=== PATIENT | male | born 1960 | race Caucasian/White ===

== ENCOUNTER 2018-01-26 15:30 | Inpatient (IN) | payer OTHER ==
[~2018-01-26] VITALS: Ht 182.9 cm; Wt 188.9 kg
--- NOTE | 2018-01-26 17:06 | HHI.HP ---
HPI Service [facility] Primary Care Physician No Primary Care Physician Admission Diagnosis Diagnoses: Chief Complaint: Heart blockage Travel History International Travel<30 Days: No Contact w/Intl Traveler <30 Da: No History of Present Illness 57-year-old white male being [place] [facility] [facility] for further evaluation of coronary artery bypass graft. History is obtained from patient, outside medical records, and nursing handoff. Patient was in his usual state of health up until recently. Yesterday he went to [facility] for an outpatient catheterization but they were not able to successfully stent his LAD due to (tortuous anatomy and possible dissection per RN handoff) and was thus admitted to the intensive care unit. Cardiology deemed surgical input was necessary. Cardiothoracic surgery here accepted the patient for further evaluation, thus the patient was transferred to [facility]. Patient reports in the days leading up to his outpatient catheterization, he denies having any active chest pain, nausea, vomiting. He reports having intermittent dyspnea that would happen either at rest or upon exertion says that his leg edema has been. Worse than baseline since he says he has been off of his water pills for the past few days due to his admission. Prior to this the patient had a successful angioplasty on 01/09 to his RCA but no stents were placed on either. Patient says he was evaluated by cardiothoracic surgery team in [place] around this timeframe was was told that CABG would be too risky. Patient reports otherwise he is very compliant with his Lipitor, aspirin, Brilinta, and Lasix. Says that his A1c has been in the low 6 range. I discussed case with Dr. Hensley cardiology at [facility], he confirms that the patient has no stent in his heart at this time, only unsuccessful attempts were made due to tortuous anatomy. Last dose of Brilinta was about 1.5 days ago. Review of Systems Except as stated in HPI: all other systems reviewed are Neg Past Family Social History Past Medical History Coronary artery disease Multiple angioplasties with no successful stenting Hypertension Diabetes Allergies: Coded Allergies: Penicillins (Verified Adverse Reaction, Intermediate, fever, 01/26/18) cephalexin (Verified Adverse Reaction, Mild, hives, 01/26/18) sulfamethoxazole (Verified Adverse Reaction, Mild, hives, 01/26/18) trimethoprim (Verified Adverse Reaction, Mild, hives, 01/26/18) Sulfa (Sulfonamide Antibiotics) (Verified Adverse Reaction, Unknown, ) Family History Coronary artery disease in father Social History Stop smoking 18 years ago, stopped drinking 18 years ago, denies illicit drug use, 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 EYES: No scleral icterus. No injection or drainage. ENT: No nasal bleeding or discharge. Mucous membranes pink and moist. CARDIOVASCULAR: Muffled heart sounds, no obvious murmurs RESPIRATORY: No accessory muscle use. Clear to auscultation. Breath sounds equal bilaterally. GASTROINTESTINAL: Abdomen soft, non-tender, nondistended. Extremities: No clubbing, cyanosis, or edema. No obvious deformities. MUSCULOSKELETAL: adequate muscle bulk and tone for age and habitus NEUROLOGICAL: Awake and alert. No obvious cranial nerve deficits. No facial droop nor slurred speech noted. PSYCHIATRIC: Appropriate mood and affect; insight and judgment normal. Caprini VTE Risk Assessment Caprini VTE Risk Assessment: Mod/High Risk (score >= 2) Caprini Risk Assessment Model Point Value = 1 Point Value = 2 Point Value = 3 Point Value = 5 Age 41-60 Minor surgery BMI > 25 kg/m2 Swollen legs Varicose veins or History of unexplained or recurrent spontaneous Oral contraceptives or hormone replacement Sepsis (< 1 month) Serious lung disease, including pneumonia (< 1 month) Abnormal pulmonary function Acute myocardial infarction Congestive heart failure (< 1 month) History of inflammatory bowel disease Medical patient at bed rest Age 61-74 Arthroscopic surgery Major open surgery (> 45 min) Laparoscopic surgery (> 45 min) Malignancy Confined to bed (> 72 hours) Immobilizing plaster cast Central venous access Age >= 75 History of VTE Family history of VTE Factor V Leiden Prothrombin [id number] Lupus anticoagulant Anticardiolipin antibodies Elevated serum homocysteine Heparin-induced thrombocytopenia Other congenital or acquired thrombophilia Stroke (< 1 month) Elective arthroplasty Hip, pelvis, or leg fracture Acute spinal cord injury (< 1 month) Prophylaxis Regimen Total Risk Factor Score Risk Level Prophylaxis Regimen 0-1 Low Early ambulation 2 Moderate Order ONE of the following: *Sequential Compression Device (SCD) *Heparin 5000 units SQ BID 3-4 Higher Order ONE of the following medications: *Heparin 5000 units SQ TID *Enoxaparin/Lovenox 40 mg SQ daily (WT < 150 kg, CrCl > 30 mL/min) *Enoxaparin/Lovenox 30 mg SQ daily (WT < 150 kg, CrCl > 10-29 mL/min) *Enoxaparin/Lovenox 30 mg SQ BID (WT < 150 kg, CrCl > 30 mL/min) AND/OR *Sequential Compression Device (SCD) 5 or more Highest Order ONE of the following medications: *Heparin 5000 units SQ TID (Preferred with Epidurals) *Enoxaparin/Lovenox 40 mg SQ daily (WT < 150 kg, CrCl > 30 mL/min) *Enoxaparin/Lovenox 30 mg SQ daily (WT < 150 kg, CrCl > 10-29 mL/min) *Enoxaparin/Lovenox 30 mg SQ BID (WT < 150 kg, CrCl > 30 mL/min) AND *Sequential Compression Device (SCD) Assessment and Plan Assessment and Plan Multivessel coronary artery disease -Status post unsuccessful PCI; cardiothoracic surgery has been consulted -Admit to CPICU -Telemetry, frequent vital signs -Bedrest -Continue aspirin and Lipitor - continue home Coreg - holding Brilinta, w/ no stent I don't see the need for this at this time Diabetes -We will hold home medications for now and start sliding scale mild CHF exacerbation due to noncompliance - unclear systolic/diastolic nature - will restart home Lasix 40 mg daily and see if this controls the edema, otherwise can upgrade to IV diuresis - continue home losartan and coreg - will request outside echo report if available - BMP in AM w/ Intake and output Anxiety -Resume home buspirone and topiramate (restless leg) -home fluoxetine SCDs heparin if cleared by [facility] Physician Certification 2 Midnight Certification Type: Admission for Inpatient Services Order for Inpatient Services The services are ordered in accordance with Medicare regulations or non- Medicare payer requirements, as applicable. In the case of services not specified as inpatient-only, they are appropriately provided as inpatient services in accordance with the 2-midnight benchmark. Estimated LOS (days): 2 2 days is the estimated time the patient will need to remain in the hospital, assuming treatment plan goals are met and no additional complications. Post-Hospital Plan: Not yet determined Ag Topete MD January 26, 2018 17:06
[2018-01-26] MEDS ORDERED: ASPI81TA23 PO (17:55)
[2018-01-26] MEDS ORDERED: trulicity PO (17:55)
[2018-01-26] MEDS ORDERED: FISHCAP4 PO (17:55)
[2018-01-26] MEDS ORDERED: TEST1INJ3 IM (17:55)
[2018-01-26] MEDS ORDERED: FLUO20CA12 PO (17:55)
[2018-01-26] MEDS ORDERED: AMLO5TAB2 PO (17:55)
[2018-01-26] MEDS ORDERED: ALBUAER3 INH (17:55)
[2018-01-26] MEDS ORDERED: ATOR40TA16 PO (17:55)
[2018-01-26] MEDS ORDERED: BUSP15TA PO (17:55)
[2018-01-26] MEDS ORDERED: TOPI50TA7 PO (17:55)
[2018-01-26] MEDS ORDERED: BRIL90TA PO (17:55)
[2018-01-26] MEDS ORDERED: HYDR-3799 PO (17:55)
[2018-01-26] MEDS ORDERED: CARV25TA PO (17:55)
[2018-01-26] MEDS ORDERED: METF1000 PO (17:55)
[2018-01-26] MEDS ORDERED: LOSA100T PO (17:55)
[2018-01-26] MEDS ORDERED: NAPR500T2 PO (17:55)
[2018-01-26] MEDS ORDERED: BUSP1TAB PO (17:55)
[2018-01-26] MEDS ORDERED: INSU1SOL SQ (17:55)
[2018-01-26] MEDS ORDERED: FURO40TA PO (17:55)
[2018-01-26] MEDS ORDERED: DEXTROSE 50% IN WATER 50 ML VIAL(D50) IV PUSH PRN (18:45)
[2018-01-26] MEDS ORDERED: GLUCAGON 1 MG/ML VIAL OTHER PRN (18:45)
[2018-01-26 19:00] VITALS: PULSE 112
[2018-01-26] MEDS ORDERED: PILL SPLITTER OTHER PRN (19:15)
[2018-01-26 20:00] VITALS: BP 129/69; PULSE 108; PULSE 89; RESP 16; TEMP 98.6; O2SAT 95
[2018-01-26 21:00] VITALS: PULSE 90
[2018-01-26] MEDS ORDERED: NON-FORMULARY DRUG (Fish Oil-Cholecalciferol (Fish Oil + D3) 1 CAP) PO SCH (21:00)
[2018-01-26] MEDS: hydrALAZINE HCL 50 MG TAB PO SCH (21:12)
[2018-01-26] MEDS: CARVEDILOL 12.5 MG TAB PO SCH (21:13)
[2018-01-26] MEDS: busPIRone HCL 5 MG TAB PO SCH (21:13)
[2018-01-26] MEDS: ATORVASTATIN 40 MG TAB PO SCH (21:13)
[2018-01-26] MEDS: TOPIRAMATE 25 MG TAB PO SCH (21:14)
[2018-01-26] MEDS: INSULIN NovoLIN REGULAR SUPPLEMENTAL SCALE SQ SCH (21:52)
[2018-01-26 22:00] VITALS: PULSE 88
[2018-01-26 23:00] VITALS: PULSE 84
[2018-01-27] VITALS (27 sets, daily range): BP systolic 144–174; BP diastolic 63–90; PULSE 74–98; RESP 16–20; TEMP 98–98.6; O2SAT 93–97
[2018-01-27] MEDS ORDERED: LOSARTAN 50 MG TAB PO SCH (09:00)
[2018-01-27] MEDS ORDERED: amLODIPine BESYLATE 5 MG TAB PO SCH (09:00)
[2018-01-27] MEDS: INSULIN NovoLIN REGULAR SUPPLEMENTAL SCALE SQ SCH ×4 (09:01→21:00)
--- NOTE | 2018-01-27 09:10 | HHI.PR ---
Subjective Remarks Nursing denies any deterioration since last night. Patient denies having any chest pain or shortness of breath. Lower extremity edema is unchanged since yesterday per patient. Objective Vital Signs Date Time Temp Pulse Resp B/P (MAP) Pulse Ox O2 Delivery O2 Flow Rate FiO2 01/27/18 07:30 98.4 96 16 174/90 (118) 94 01/27/18 07:00 96 01/27/18 06:00 88 01/27/18 05:00 86 01/27/18 04:00 98 01/27/18 03:30 98.6 89 16 145/67 (93) 97 01/27/18 03:00 90 01/27/18 02:00 85 01/27/18 01:00 84 01/27/18 00:00 92 01/27/18 00:00 98.5 91 16 144/63 (90) 97 01/26/18 23:00 84 01/26/18 22:00 88 01/26/18 21:00 90 01/26/18 20:00 98.6 89 16 129/69 (89) 95 01/26/18 20:00 108 01/26/18 19:00 112 I/O 01/26/18 01/26/18 01/26/18 01/27/18 01/27/18 01/27/18 07:00 15:00 23:00 07:00 15:00 23:00 Intake Total 240 ml Output Total 800 ml Balance -560 ml Intake Oral 240 ml Output Urine Total 800 ml Stool Total 0 ml Objective Remarks Heart sounds are muffled, otherwise unremarkable, clear lung sounds bilaterally , unlabored breathing Unchanged moderate lower extremity edema bilaterally's as yesterday A/P Assessment and Plan Multivessel coronary artery disease -Status post unsuccessful PCI; cardiothoracic surgery consultation pending -Telemetry, frequent vital signs -Bedrest -Continue aspirin and Lipitor - continue home Coreg - holding Brilinta, w/ no stent I don't see the need for this at this time Diabetes -hold home medications for now and LDSS; discussed with nurse, was not administered morning dose since he was n.p.o., sugars have been greater than 180 since admission. Will reattempt low-dose sliding scale from this morning and if sugars are still greater than 150 will consider upgrading to medium dose sliding scale. mild CHF exacerbation due to noncompliance - unclear systolic/diastolic nature, - will request outside echo report if available - continue home Lasix 40 mg daily and see if this controls the edema, otherwise can upgrade to IV diuresis - continue home losartan and coreg - BMP pending - neg fluid balance so far, continue monitoring intake/output HTN -Continue home losartan, Coreg, Norvasc, hydralazine Anxiety - home buspirone and topiramate (restless leg) -home fluoxetine SCDs heparin Ag Topete MD January 27, 2018 09:10
[2018-01-27] MEDS ORDERED: INSULIN HUMAN REGULAR 1,000 UNITS/10 ML VIAL SQ ONE (09:45)
[2018-01-27] MEDS: HEPARIN SODIUM - SQ 10,000 UNITS/ML VIAL SQ SCH ×3 (10:02→16:38)
[2018-01-27] MEDS: CARVEDILOL 12.5 MG TAB PO SCH ×2 (10:02→23:53)
[2018-01-27] MEDS: ASPIRIN EC 81 MG TABEC PO SCH (10:03)
[2018-01-27] MEDS: FUROSEMIDE 40 MG TAB PO SCH (10:03)
[2018-01-27] MEDS: hydrALAZINE HCL 50 MG TAB PO SCH ×2 (10:03→23:52)
[2018-01-27] MEDS: TOPIRAMATE 25 MG TAB PO SCH ×2 (10:04→23:54)
[2018-01-27] MEDS: busPIRone HCL 5 MG TAB PO SCH ×2 (10:04→23:53)
[2018-01-27] MEDS: FLUoxetine HCL 20 MG CAP PO SCH (10:11)
[2018-01-27] MEDS ORDERED: VANCOMYCIN INJ 1,750 MG in SODIUM CHLORID 0.9% 500 ML INJ 500 ML IV SCH (10:15)
[2018-01-27] MEDS ORDERED: SODIUM CHLORIDE 0.9% FLUSH 10 ML FLUSH IV FLUSH PRN (10:15)
[2018-01-27] MEDS ORDERED: DEXTROSE 50% IN WATER 50 ML VIAL(D50) IV PUSH PRN (10:15)
[2018-01-27] MEDS ORDERED: PAPAVERINE INJ 60 MG, NITROGLYCERIN INJ 100 MCG, VERAPAMIL INJ 100 MG in SODIUM CHLORID... IRRIGATION SCH (10:15)
[2018-01-27] MEDS ORDERED: VANCOMYCIN INJ 1,000 MG in SODIUM CHLORIDE 0.9% IRR BTL 1,000 ML IRRIGATION SCH (10:15)
[2018-01-27] MEDS ORDERED: CHLORHEXIDINE GLUCONATE 4% SOLN 120 ML BTL TOPICAL SCH (10:15)
[2018-01-27] MEDS ORDERED: METOPROLOL TARTRATE 25 MG TAB PO SCH (10:15)
[2018-01-27] MEDS ORDERED: INSULIN REGULAR (IV INFUSION) 100 UNITS in SODIUM CHLORIDE 0.9% INJ 99 ML IV PRN (10:15)
--- NOTE | 2018-01-27 11:11 | RADRPT ---
EXAM DATE/TIME: 01/27/2018 11:21 [facility] COMPARISON: No previous studies available for comparison. INDICATIONS : Evaluate for pneumonia, pneumothorax or communicable disease. Preop chest for CABG MEDICAL HISTORY : Cardiovascular disease. SURGICAL HISTORY : None. ENCOUNTER: Initial ACUITY: 1 day PAIN SCORE: 0/10 LOCATION: Bilateral chest FINDINGS: A single view of the chest demonstrates the lungs to be symmetrically aerated without evidence of mas s, infiltrate or effusion. Mild compensated cardiomegaly. Osseous structures are intact. CONCLUSION: No acute disease. Steven Chen MD FACR on January 27, 2018 at 11:08 Board Certified Radiologist. This report was verified electronically.
--- NOTE | 2018-01-27 11:55 | MB ---
cc: Lena Bravo Jacqueline R ARNP DATE: 01/27/2018 HISTORY OF PRESENT ILLNESS: A 57-year-old male , date of 1960, apparently has a history of coronary artery disease and recently started having chest pain again back in December where he had a heart catheterization which showed a high grade stenosis of the LAD and the right coronary artery in the proximal region. He was sent for evaluation for coronary artery bypass grafting at [facility] in [place] and was evaluated by Dr. Taylor and recommended to undergo stepwise angioplasty of the LAD and the RCA secondary to the patient's significant comorbidities which included morbid obesity with a BMI of 56 and a weight of 411 pounds, diabetes mellitus. They attempted balloon angioplasty of the right coronary artery and failure of her stent delivery on 01/09/2018. He was then brought back on 01/26/2018 for staged PCI to the LAD, which was failed intervention and they ended up using a Perclose device to the right groin. He was then transferred to our facility to be evaluated by Dr. Gay Rico for possible coronary artery bypass grafting at this time. PAST MEDICAL HISTORY: Includes coronary artery disease; no prior history of AR. Renal stones, sleep apnea. He cannot tolerate CPAP mask, carotid disease, morbid obesity with a BMI of 56, hypertension, history of depression. PAST SURGICAL HISTORY: Surgeries include right carotid endarterectomy in 2008. He has also had a left carotid endarterectomy; he is not sure of the date. He had an injury as a child at age 12 in a snow sled where he had a railroad tie and had what sounds like a hematoma for which the patient underwent a craniotomy at that time. He has also had right rotator cuff surgery, bilateral knee surgery replacement, appendectomy, tonsillectomy. ALLERGIES: PENICILLIN. KEFLEX SULFA. FAMILY HISTORY: Mother from sudden . Father with complications of pneumonia. SOCIAL HISTORY: The patient is and has stepchildren, walks without a cane but becomes easily short of breath. No alcohol. Retired from the [employer] in [place] [facility]. Smoked for 20 years, approximately 4 packs, quit in 1999. REVIEW OF SYSTEMS: GENERAL: No night sweats, fever, heat and cold intolerance. SKIN: No psoriasis, itching or hives. HEENT: No blurred vision, hearing loss. RESPIRATORY: Positive for shortness of breath. No cough. CARDIOVASCULAR: He has had recent chest tightness. No paroxysmal nocturnal dyspnea. Occasional lower extremity edema. GASTROINTESTINAL: No diarrhea or vomiting. GENITOURINARY: No burning, frequency, urgency. NEUROLOGIC: No history of TIA, CVA or seizure disorder. ENDOCRINOLOGY: Positive for diabetes mellitus. PHYSICAL EXAMINATION: VITAL SIGNS: Stable. HEENT: Head is normocephalic. He has a full alva. Pupils equal and reactive. Oral mucosa pink, moist. He has no teeth on the top. Apparently, he lost his upper dentures. NECK: Supple. He has got well healed carotid endarterectomy scars. HEART: Sounds S1, S2. Regular rate and rhythm. No audible rubs, murmurs, gallops. LUNGS: Diminished in the bases, otherwise clear to auscultation. No wheezes, rales or rhonchi. UPPER EXTREMITIES: He has got a scar in his right shoulder. ABDOMEN: Obese. He has a large pannus. He has got some ecchymosis to the right groin from his catheterization site. EXTREMITIES: Reveal trace edema with Doppler pulses only. He has got some chronic fungal involvement of his nails of his feet. IMPRESSION: This is a 57-year-old male who has had an attempt for high risk PCI to the LAD and the RCA which have both failed. ASSESSMENT AND PLAN: He was seen by cardiothoracic surgery at [facility] with Dr. Taylor and who at that point recommended staged percutaneous coronary intervention. The patient was then transferred to our facility to reevaluate for a second opinion for possible surgery. The cardiac films will be evaluated by Dr. Gay iRco. Full testing is pending including 2-D echo. The decision on surgery as per Dr. Rico. In the meantime, the STS data will be calculated and placed in the electronic record. TRISTEN Campbell MD JRT/MONO , 11:22 AM , 11:54 AM
--- NOTE | 2018-01-27 12:23 | RADRPT ---
EXAM DATE/TIME: 01/27/2018 10:53 [facility] COMPARISON: No previous studies available for comparison. INDICATIONS : Preop cardiac surgery. MEDICAL HISTORY : Hypertension. Coronary artery disease. Diabetes. SURGICAL HISTORY : Angioplasty. Cardiac cath. ENCOUNTER: Initial ACUITY: 1 day PAIN SCORE: 0/10 LOCATION: Bilateral neck PEAK SYSTOLIC VELOCITIES (cm/sec): ICA/CCA RATIO: Right: 0.8 Left: 0.9 ICA: Right: 62 Left: 114 CCA: Right: 74 Left: 127 ECA: Right: 78 Left: 77 VERTEBRAL: Right: 39 antegrade Left: 52 antegrade Elevated flow velocities and ICA/CCA ratios have been found to correlate with increased degrees of vessel stenosis, calculated as percentage of diameter relative to a normal segment of distal ICA/CCA FINDINGS: RIGHT CAROTID: There is mild atherosclerotic plaquing at the carotid bifurcation. No significant stenosis is visuali zed. The waveforms are within normal limits. LEFT CAROTID: There is mild to moderate atherosclerotic plaque involving the distal common carotid artery and at th e bifurcation. No significant stenosis is visualized. The waveforms are within normal limits. VERTEBRAL ARTERIES: Antegrade flow is seen in both vertebral arteries. MISCELLANEOUS: None. CONCLUSION: 1. Mild atherosclerotic plaquing at the right carotid bifurcation. Mild to moderate atherosclerotic p laque involving the left common carotid artery and bifurcation. 2. No focal high grade or hemodynamically significant stenosis. John Elliott MD on January 27, 2018 at 12:20 Board Certified Radiologist. This report was verified electronically.
--- NOTE | 2018-01-27 12:24 | RADRPT ---
EXAM DATE/TIME: 01/27/2018 11:46 [facility] COMPARISON: No previous studies available for comparison. INDICATIONS : Preop cardiac surgery. MEDICAL HISTORY : Hypertension. Coronary artery disease. Diabetes. SURGICAL HISTORY : Angioplasty. Cardiac cath. ENCOUNTER: Initial ACUITY: 1 day PAIN SCORE: 0/10 LOCATION: Bilateral leg. GREATER SAPHENOUS VEIN THIGH: PROXIMAL: Right 5 mm Left 6 mm MID: Right 4 mm Left 5 mm DISTAL: Right 4 mm Left 4 mm CALF: PROXIMAL: Right 3 mm Left 3 mm MID: Right 2 mm Left 3 mm DISTAL: Right 2 mm Left 3 mm FINDINGS: The venous system of the lower extremities are patent by color Doppler imaging. Measurements of the leg veins (in mm) are listed above. CONCLUSION: Venous mapping as above Steven Chen MD FACR on January 27, 2018 at 12:22 Board Certified Radiologist. This report was verified electronically.
--- NOTE | 2018-01-27 12:24 | RADRPT ---
EXAM DATE/TIME: 01/27/2018 11:34 [facility] COMPARISON: No previous studies available for comparison. INDICATIONS : Preop cardiac surgery. MEDICAL HISTORY : Hypertension. Coronary artery disease. Diabetes. SURGICAL HISTORY : Angioplasty. Cardiac cath. ENCOUNTER: Initial ACUITY: 1 day PAIN SCORE: 0/10 LOCATION: Bilateral leg. TECHNIQUE: Venous ultrasound of the left and right leg was performed from the inguinal ligament to the proximal calf. Real-time, color Doppler and spectral tracing, compression and augmentation techniques were us ed. FINDINGS: RIGHT LEG: Hematoma in the upper thigh. Examination limited. No clot is visualized. LEFT LEG: There is normal compressibility of the deep venous system from the inguinal region to the proximal ca lf. No echogenic clot is seen in the lumen of the common femoral, femoral, popliteal, and posterior tibial veins. There is a normal response of the venous system to proximal and distal augmentation an d respiration. CONCLUSION: Limited on the right, negative for DVT. Steven Chen MD FACR on January 27, 2018 at 12:21 Board Certified Radiologist. This report was verified electronically.
[2018-01-27 13:14] LABS: HEMATOCRIT 36.3 % (39.0-51.0); HEMOGLOBIN 12.3 GM/DL (13.0-17.0); MEAN CELL VOLUME 88.2 FL (80.0-100.0); MEAN CORPUSCULAR HEMOGLOBIN 29.8 PG (27.0-34.0); MEAN CORPUSCULAR HGB CONC 33.8 % (32.0-36.0); MEAN PLATELET VOLUME 8.9 FL (7.0-11.0); PLATELET COUNT 266 TH/MM3 (150-450); RED BLOOD COUNT 4.12 MIL/MM3 (4.50-5.90); RED CELL DISTRIBUTION WIDTH 14.1 % (11.6-17.2); WHITE BLOOD COUNT 9.7 TH/MM3 (4.0-11.0)
[2018-01-27 13:25] LABS: INTERNATIONAL NORMALIZED RATIO 1.1 RATIO; PROTHROMBIN TIME - PATIENT 10.7 SEC (9.8-11.6)
[2018-01-27 13:43] LABS: ALBUMIN 3.3 GM/DL (3.4-5.0); ALT (GPT) 24 U/L (12-78); AST (GOT) 17 U/L (15-37); BICARBONATE 27.7 MEQ/L (21.0-32.0); BLOOD UREA NITROGEN 11 MG/DL (7-18); CALCIUM 8.2 MG/DL (8.5-10.1); CHLORIDE 108 MEQ/L (98-107); GLOMERULAR FILTRATION RATE 99 ML/MIN (>89); GLUCOSE,RANDOM 170 MG/DL (74-106); MAGNESIUM 1.8 MG/DL (1.5-2.5); SODIUM (NA) 144 MEQ/L (136-145)
[2018-01-27 13:45] LABS: ALKALINE PHOSPHATASE 80 U/L (45-117); TOTAL BILIRUBIN ADULT 0.4 MG/DL (0.2-1.0); TOTAL PROTEIN 6.8 GM/DL (6.4-8.2)
--- NOTE | 2018-01-27 15:10 | ECHRPT ---
Indication: PRE OP CABG CONCLUSIONS Normal left ventricular size. Mild concentric left ventricular hypertrophy. The left ventricular systolic function is grossly normal on limited imaging. The left atrial size is mildly dilated. There is trace tricuspid valve regurgitation. The estimated pulmonary arterial pressure is 32 mmHg. Trace pericardial effusion. A prominent epicardial fat pad is present. BP: 156 / 79 HR: Rhythm: Sinus MEASUREMENTS (Male / Female) Normal Values Technical Quality:Fair 2D ECHO LV Diastolic Diameter PLAX 5.4 cm 4.2 - 5.9 / 3.9 - 5.3 cm LV Systolic Diameter PLAX 3.2 cm IVS Diastolic Thickness 1.2 cm 0.6 - 1.0 / 0.6 - 0.9 cm LVPW Diastolic Thickness 1.2 cm 0.6 - 1.0 / 0.6 - 0.9 cm LV Relative Wall Thickness 0.5 RV Internal Dim ED PLAX 3.4 cm LVOT Diameter 2.4 cm Aortic Root Diameter 3.6 cm LA Systolic Diameter LX 5.3 cm 3.0 - 4.0 / 2.7 - 3.8 cm M-MODE AV Cusp Separation MM 2.2 cm DOPPLER AV Peak Velocity 200.0 cm/s AV Peak Gradient 16.0 mmHg AV Mean Gradient 9.0 mmHg AV Velocity Time Integral 38.4 cm LVOT Peak Velocity 155.0 cm/s LVOT Peak Gradient 9.6 mmHg LVOT Velocity Time Integral 29.3 cm AV Area Cont Eq vti 3.5 cm AV Area Cont Eq pk 3.5 cm Mitral E Point Velocity 95.3 cm/s Mitral A Point Velocity 122.0 cm/s Mitral E to A Ratio 0.8 LV E' Lateral Velocity 6.2 cm/s Mitral E to LV E' Lateral Ratio 15.3 LV E' Septal Velocity 8.4 cm/s Mitral E to LV E' Septal Ratio 11.4 TR Peak Velocity 235.0 cm/s TR Peak Gradient 22.1 mmHg PV Peak Velocity 78.2 cm/s PV Peak Gradient 2.4 mmHg FINDINGS LEFT VENTRICLE The left ventricular systolic function is normal with an estimated ejection fraction in the range of 60-65%. Normal left ventricular size. Mild concentric left ventricular hypertrophy. The left ventricular systolic function is grossly normal on limited imaging. RIGHT VENTRICLE Normal right ventricular size and systolic function. LEFT ATRIUM The left atrial size is mildly dilated. RIGHT ATRIUM The right atrial size is normal. ATRIAL SEPTUM No atrial level shunt is demonstrated by color flow Doppler interrogation. AORTA The aortic root and proximal ascending aorta are normal in size on limited imaging. MITRAL VALVE Structurally normal mitral valve. No mitral valve stenosis or regurgitation. AORTIC VALVE Trileaflet aortic valve. No aortic valve stenosis or regurgitation. TRICUSPID VALVE There is trace tricuspid valve regurgitation. The estimated pulmonary arterial pressure is 32 mmHg. PULMONARY VALVE No pulmonary valve regurgitation or stenosis. VESSELS The inferior vena cava is normal in size. PERICARDIUM Trace pericardial effusion. A prominent epicardial fat pad is present. Jomar Iverson MD (Electronically Signed) Final Date:27 Jan 2018 15:09
[2018-01-27 17:12] LABS: HEMOGLOBIN A1C 6.9 % (4.3-6.0)
[2018-01-27 21:41] LABS: AMORPHOUS SEDIMENT, URINE RARE; BILIRUBIN, URINE NEG (NEG); BLOOD, URINE NEG (NEG); GLUCOSE,URINE NEG (NEG); KETONE, URINE NEG (NEG); MUCUS URINE FEW /lpf (OCC); NITRITE,URINE NEG (NEG); PH, URINE 6.5 (5.0-8.5); SQUAMOUS EPITHELIAL CELL URINE <1 /hpf (0-5); URINE COLOR YELLOW (YELLW/STRAW); URINE LEUKOCYTE ESTERASE NEG (NEG)
[2018-01-27] MEDS: SODIUM CHLORIDE 0.9% FLUSH 10 ML FLUSH IV FLUSH SCH (23:52)
[2018-01-27] MEDS: ATORVASTATIN 40 MG TAB PO SCH (23:53)
[2018-01-28] VITALS (27 sets, daily range): BP systolic 117–172; BP diastolic 56–82; PULSE 71–96; RESP 16–20; TEMP 97.6–98.6; O2SAT 96–97
[2018-01-28] MEDS: HEPARIN SODIUM - SQ 10,000 UNITS/ML VIAL SQ SCH ×3 (00:26→15:40)
[2018-01-28] MEDS: INSULIN NovoLIN REGULAR SUPPLEMENTAL SCALE SQ SCH ×4 (08:00→21:00)
[2018-01-28] MEDS: ASPIRIN EC 81 MG TABEC PO SCH (08:10)
[2018-01-28] MEDS: FUROSEMIDE 40 MG TAB PO SCH (08:10)
[2018-01-28] MEDS: busPIRone HCL 5 MG TAB PO SCH ×2 (08:11→21:09)
[2018-01-28] MEDS: hydrALAZINE HCL 50 MG TAB PO SCH ×2 (08:11→21:09)
[2018-01-28] MEDS: FLUoxetine HCL 20 MG CAP PO SCH (08:11)
[2018-01-28] MEDS: TOPIRAMATE 25 MG TAB PO SCH ×2 (08:11→21:09)
[2018-01-28] MEDS: SODIUM CHLORIDE 0.9% FLUSH 10 ML FLUSH IV FLUSH SCH ×2 (08:11→21:11)
[2018-01-28] MEDS: CARVEDILOL 12.5 MG TAB PO SCH ×2 (08:11→21:08)
--- NOTE | 2018-01-28 08:16 | HHI.PR ---
Subjective Remarks Pt feels well. Denies any chest pain, SOB, jaw or neck pains. Denies any nausea or vomiting, appetite is good. Tells me that he is scheduled for sx on tuesday per his conversation w Dr. Rico Objective Vitals Vital Signs Date Time Temp Pulse Resp B/P (MAP) Pulse Ox O2 Delivery O2 Flow Rate FiO2 01/28/18 05:00 96 01/28/18 04:00 88 01/28/18 03:33 97.7 90 16 144/70 (94) 96 01/28/18 03:00 85 01/28/18 02:00 83 01/28/18 01:00 86 01/28/18 00:00 83 01/27/18 23:42 98.3 91 16 159/70 (99) 93 01/27/18 23:00 83 01/27/18 22:00 84 01/27/18 21:00 96 01/27/18 20:00 98.3 92 16 173/83 (113) 95 01/27/18 20:00 90 01/27/18 19:00 90 01/27/18 18:00 90 01/27/18 17:00 90 01/27/18 16:00 93 01/27/18 15:00 84 01/27/18 15:00 98.0 90 20 165/73 (103) 95 01/27/18 14:00 74 01/27/18 13:00 82 01/27/18 12:00 96 01/27/18 11:00 98.2 87 18 156/79 (104) 93 01/27/18 11:00 82 01/27/18 10:00 84 01/27/18 09:00 83 I/O 01/27/18 01/27/18 01/27/18 01/28/18 01/28/18 01/28/18 07:00 15:00 23:00 07:00 15:00 23:00 Intake Total 240 ml 950 ml 480 ml Output Total 800 ml 1200 ml 650 ml Balance -560 ml -250 ml -170 ml Intake Oral 240 ml 950 ml 480 ml Output Urine Total 800 ml 1200 ml 650 ml Stool Total 0 ml 0 ml Result Diagram: 01/27/18 1258 01/27/18 1258 Imaging Last Impressions Lower Extremity Ultrasound 01/27/18 0000 Signed Impressions: Service Date/Time: Saturday, January 27, 2018 11:46 - CONCLUSION: Venous mapping as above Steven Chen MD FACR Chest X-Ray 01/27/18 0000 Signed Impressions: Service Date/Time: Saturday, January 27, 2018 11:21 - CONCLUSION: No acute disease. Steven Chen MD FACR Carotid Artery Ultrasound 01/27/18 0000 Signed Impressions: Service Date/Time: Saturday, January 27, 2018 10:53 - CONCLUSION: 1. Mild atherosclerotic plaquing at the right carotid bifurcation. Mild to moderate atherosclerotic plaque involving the left common carotid artery and bifurcation. 2. No focal high grade or hemodynamically significant stenosis. John Elliott MD Objective Remarks Heart sounds are muffled, otherwise unremarkable, clear lung sounds bilaterally, unlabored breathing, no wheezing traces edema noted Obese patient, sitting up on bed, appears comfortable. NC in place A/P Assessment and Plan Multivessel coronary artery disease -Status post unsuccessful PCI; cardiothoracic surgery consultation in progress. Per pt, he is scheduled for sx on tuesday. Per CV sx notes, plan for sx still pending. -continue Telemetry, frequent vital signs -Continue aspirin, coreg and Lipitor -holding Brilinta, apparently pt doesn't have any stents. To be resumed if deemed necessary per CV sx. Diabetes -on ISS w BS monitoring. Monitor and adjust meds as needed. -diabetic diet in addition to heart healthy ?mild CHF exacerbation due to noncompliance - ECHO shows EF of 60-65%, no mention of diastolic dysfunction - continue home Lasix 40 mg daily. Pt seems to be stable. monitor. - continue home losartan and coreg - BMP pending - neg fluid balance so far, continue monitoring intake/output HTN -Continue home Coreg, Norvasc increased to 10mg po daily, continue hydralazine losartan was held as I believe MD was waiting on BMP but kidney function appropriate. Will resume home dose but change to 50mg po daily as dose of amlodipine was increased to 10mg po daily while here. Adjust BP meds as needed. low sodium diet Anxiety - home buspirone and topiramate (restless leg) -home fluoxetine Discharge Planning Per pt, he is scheduled for sx on tuesday per his conversation w CV sx. Awaiting final recs. I do see an order for pt to be NPO after midnight for . Monitor BP's Rosa Ramires MD January 28, 2018 08:16
[2018-01-28] MEDS: LOSARTAN 50 MG TAB PO SCH (08:40)
--- NOTE | 2018-01-28 19:03 | RADRPT ---
EXAM DATE/TIME: 01/28/2018 18:26 [place] COMPARISON: No previous studies available for comparison. INDICATIONS : Preop CABG. RADIATION DOSE: 18.14 CTDIvol (mGy) MEDICAL HISTORY : Cardiovascular disease. Hypertension. Diabetes mellitus type 2. Renal stones SURGICAL HISTORY : Appendectomy. Total knee replacement, left.Total knee replacement, right. ENCOUNTER: Initial ACUITY: 1 day PAIN SCALE: 0/10 LOCATION: chest TECHNIQUE: Volumetric scanning of the chest was performed. Using automated exposure control and adjustment of t he mA and/or kV according to patient size, radiation dose was kept as low as reasonably achievable to obtain optimal diagnostic quality images. DICOM format image data is available electronically for r eview and comparison. Follow-up recommendations for detected pulmonary nodules are based at a minimum on nodule size and pa tient risk factors according to Fleischner Society Guidelines. FINDINGS: LUNGS: There is no consolidation or pneumothorax. No concerning pulmonary nodule is visualized. PLEURAE: There is no pleural thickening or pleural effusion. MEDIASTINUM: The heart and great vessels demonstrate no acute abnormality. There is no mediastinal or hilar lymph adenopathy. Small pericardial effusion. AXILLAE: Within normal limits. No lymphadenopathy. MUSCULOSKELETAL: Within normal limits for patient age. MISCELLANEOUS: The visualized upper abdominal organs demonstrate no acute abnormality. CONCLUSION: 1. No focal or acute intrathoracic disease. 2. Small pericardial effusion. John Elliott MD on January 28, 2018 at 19:00 Board Certified Radiologist. This report was verified electronically.
[2018-01-28] MEDS: ATORVASTATIN 40 MG TAB PO SCH (21:08)
[2018-01-29] VITALS (22 sets, daily range): BP systolic 138–165; BP diastolic 56–82; PULSE 46–97; RESP 18–22; TEMP 97–98.3; O2SAT 95–99
[2018-01-29] MEDS: HEPARIN SODIUM - SQ 10,000 UNITS/ML VIAL SQ SCH ×3 (00:49→16:16)
[2018-01-29 05:01] LABS: CALCIUM 8.3 MG/DL (8.5-10.1); CREATININE 0.73 MG/DL (0.60-1.30)
[2018-01-29] MEDS: INSULIN NovoLIN REGULAR SUPPLEMENTAL SCALE SQ SCH ×4 (07:04→20:52)
[2018-01-29] MEDS: hydrALAZINE HCL 50 MG TAB PO SCH ×2 (08:12→20:51)
[2018-01-29] MEDS: CARVEDILOL 12.5 MG TAB PO SCH ×2 (08:12→20:51)
[2018-01-29] MEDS: FUROSEMIDE 40 MG TAB PO SCH (08:12)
[2018-01-29] MEDS: SODIUM CHLORIDE 0.9% FLUSH 10 ML FLUSH IV FLUSH SCH ×2 (08:12→20:52)
[2018-01-29] MEDS: LOSARTAN 50 MG TAB PO SCH (08:13)
[2018-01-29] MEDS: TOPIRAMATE 25 MG TAB PO SCH ×2 (08:13→20:51)
[2018-01-29] MEDS: ASPIRIN EC 81 MG TABEC PO SCH (08:13)
[2018-01-29] MEDS: busPIRone HCL 5 MG TAB PO SCH ×2 (08:13→20:51)
[2018-01-29] MEDS: FLUoxetine HCL 20 MG CAP PO SCH (08:13)
--- NOTE | 2018-01-29 09:03 | HHI.PR ---
Subjective Remarks Nursing denies any deterioration since last night. Reports a little numbness and some pain on his anterior lateral left thigh, he thinks is related to positioning since he has been largely sitting up in the chair and lying in bed. Patient thinks that edema in his bilateral lower extremities is largely unchanged since admission, But not any worse Objective Vital Signs Date Time Temp Pulse Resp B/P (MAP) Pulse Ox O2 Delivery O2 Flow Rate FiO2 01/29/18 08:00 90 01/29/18 07:23 97.4 87 18 162/82 (108) 95 01/29/18 07:00 78 01/29/18 06:00 88 01/29/18 03:00 98.3 78 22 138/56 (83) 98 01/29/18 03:00 78 01/28/18 23:00 98.3 84 18 117/56 (76) 96 01/28/18 23:00 84 01/28/18 22:00 88 01/28/18 21:00 81 01/28/18 20:00 94 01/28/18 19:00 77 01/28/18 19:00 98.6 77 20 166/77 (106) 97 01/28/18 18:00 94 01/28/18 17:00 88 01/28/18 16:00 81 01/28/18 15:23 98.4 81 18 172/82 (112) 97 01/28/18 15:00 80 01/28/18 14:00 87 01/28/18 13:00 85 01/28/18 12:00 89 01/28/18 11:50 97.6 83 18 162/74 (103) 96 01/28/18 11:00 85 01/28/18 10:00 71 01/28/18 09:00 88 I/O 01/28/18 01/28/18 01/28/18 01/29/18 01/29/18 01/29/18 07:00 15:00 23:00 07:00 15:00 23:00 Intake Total 480 ml 920 ml 480 ml Output Total 650 ml 0 ml Balance -170 ml 920 ml 480 ml Intake Oral 480 ml 920 ml 480 ml Output Urine Total 650 ml Stool Total 0 ml 0 ml # Voids 4 3 Result Diagram: 01/27/18 1258 01/29/18 0407 Objective Remarks Heart sounds are muffled, otherwise unremarkable, clear lung sounds bilaterally , unlabored breathing Unchanged moderate lower extremity edema bilaterally since admission A/P Assessment and Plan Multivessel coronary artery disease -Status post unsuccessful PCI; cardiothoracic surgery consultation in progress. Per pt, he is scheduled for sx on tuesday. Per CV sx notes, plan for sx still pending. -continue Telemetry, frequent vital signs -Continue aspirin, coreg and Lipitor -CT chest, carotid ultrasound, lower extremity ultrasounds overall unremarkable , only small pericardial effusion noted on CT chest. Diabetes -on MDSS w BS monitoring. On insulin titration protocol per cardiothoracic surgery is warranted otherwise -diabetic diet in addition to heart healthy Stable chronic diastolic CHF - ECHO shows EF of 60-65%, no mention of diastolic dysfunction - continue home Lasix 40 mg daily - continue home losartan and coreg -Monitor intake/output HTN -Continue home Coreg, Norvasc, continue hydralazine, losartan Anxiety - home buspirone and topiramate (restless leg) -home fluoxetine Discharge Planning Per pt, he is scheduled for sx on tuesday per his conversation w CV sx. Awaiting final recs. Ag Topete MD January 29, 2018 09:03
[2018-01-29] MEDS ORDERED: DULA0.5I SQ (10:43)
[2018-01-29] MEDS: ATORVASTATIN 40 MG TAB PO SCH (20:51)
[2018-01-30] VITALS (25 sets, daily range): BP systolic 107–155; BP diastolic 52–70; PULSE 73–102; RESP 18–20; TEMP 97.4–98.2; O2SAT 93–100
[2018-01-30] MEDS: HEPARIN SODIUM - SQ 10,000 UNITS/ML VIAL SQ SCH ×4 (00:23→23:43)
[2018-01-30] MEDS: CARVEDILOL 12.5 MG TAB PO SCH ×2 (07:44→21:08)
[2018-01-30] MEDS: ASPIRIN EC 81 MG TABEC PO SCH (07:44)
[2018-01-30] MEDS: hydrALAZINE HCL 50 MG TAB PO SCH ×2 (07:44→21:08)
[2018-01-30] MEDS: SODIUM CHLORIDE 0.9% FLUSH 10 ML FLUSH IV FLUSH SCH ×2 (07:44→21:09)
[2018-01-30] MEDS: FUROSEMIDE 40 MG TAB PO SCH (07:45)
[2018-01-30] MEDS: INSULIN NovoLIN REGULAR SUPPLEMENTAL SCALE SQ SCH ×4 (07:45→21:09)
[2018-01-30] MEDS: TOPIRAMATE 25 MG TAB PO SCH ×2 (07:45→21:08)
[2018-01-30] MEDS: busPIRone HCL 5 MG TAB PO SCH ×2 (07:45→21:08)
[2018-01-30] MEDS: FLUoxetine HCL 20 MG CAP PO SCH (07:46)
[2018-01-30] MEDS: LOSARTAN 50 MG TAB PO SCH (07:48)
--- NOTE | 2018-01-30 09:38 | HHI.PR ---
Subjective Remarks Nursing denies any deterioration since last night. Patient thinks his leg swelling is improved since admission. Denies having any chest pain. Objective Vital Signs Date Time Temp Pulse Resp B/P (MAP) Pulse Ox O2 Delivery O2 Flow Rate FiO2 01/30/18 09:00 78 01/30/18 08:00 100 01/30/18 07:09 94 01/30/18 07:09 98.2 96 20 137/70 (92) 100 01/30/18 06:00 90 01/30/18 05:00 82 01/30/18 04:00 77 01/30/18 04:00 97.7 94 18 151/68 (95) 96 01/30/18 03:00 96 01/30/18 02:00 90 01/30/18 01:00 83 01/30/18 00:00 73 01/30/18 00:00 97.4 81 18 141/61 (87) 96 01/29/18 23:00 76 01/29/18 22:00 80 01/29/18 21:00 78 01/29/18 20:00 73 01/29/18 20:00 97.0 76 18 165/72 (103) 98 01/29/18 19:00 74 01/29/18 18:00 87 01/29/18 17:00 90 01/29/18 16:00 74 01/29/18 15:02 97.8 77 18 144/65 (91) 99 01/29/18 15:00 73 01/29/18 14:00 78 01/29/18 13:00 81 01/29/18 12:00 97 01/29/18 11:25 97.7 84 18 146/67 (93) 96 01/29/18 11:00 81 01/29/18 10:00 79 I/O 01/29/18 01/29/18 01/29/18 01/30/18 01/30/18 01/30/18 07:00 15:00 23:00 07:00 15:00 23:00 Intake Total 480 ml 840 ml 120 ml Output Total 0 ml 1800 ml 1100 ml Balance 480 ml -960 ml -980 ml Intake Oral 480 ml 840 ml 120 ml Output Urine Total 1800 ml 1100 ml Stool Total 0 ml # Voids 3 # Bowel Movements 0 Result Diagram: 01/27/18 1258 01/29/18 0407 Objective Remarks Heart sounds are muffled, otherwise unremarkable, clear lung sounds bilaterally , unlabored breathing Unchanged moderate lower extremity edema bilaterally since admission A/P Assessment and Plan 57-year-old white male who was admitted with multivessel coronary artery disease -Status post unsuccessful PCI; cardiothoracic surgery consultation in progress. Per pt, he is scheduled for sx on tuesday.. -continue Telemetry, frequent vital signs -Continue aspirin, coreg and Lipitor -CT chest, carotid ultrasound, lower extremity ultrasounds overall unremarkable , only small pericardial effusion noted on CT chest. Diabetes -on MDSS w BS monitoring. On insulin titration protocol per cardiothoracic surgery is warranted otherwise -diabetic diet in addition to heart healthy Stable chronic diastolic CHF - ECHO shows EF of 60-65%, no mention of diastolic dysfunction - continue home Lasix 40 mg daily - continue home losartan and coreg -Monitor intake/output HTN -Continue home Coreg, Norvasc, continue hydralazine, losartan Anxiety - home buspirone and topiramate (restless leg) -home fluoxetine Discharge Planning Per pt, he is scheduled for sx on tuesday per his conversation w CV sx. Awaiting final recs. Ag Topete MD January 30, 2018 09:38
--- NOTE | 2018-01-30 16:17 | PD.CAR.PN ---
CVT Progress Note Subjective/Hospital Course: A 57-year-old male, history of coronary artery disease and recently started having chest pain again back in December where he had a heart catheterization which showed a high grade stenosis of the LAD and the right coronary artery in the proximal region. He was sent for evaluation for coronary artery bypass grafting at [facility] in [place] and was evaluated by Dr. Taylor and recommended to undergo stepwise angioplasty of the LAD and the RCA secondary to the patient's significant comorbidities which included morbid obesity with a BMI of 56 and a weight of 411 pounds, diabetes mellitus. They attempted balloon angioplasty of the right coronary artery and failure of her stent delivery on 01/09/2018. He was then brought back on 01/26/2018 for staged PCI to the LAD, which was failed intervention and they ended up using a Perclose device to the right groin. He was then transferred to our facility to be evaluated by Dr. Gay Rico for possible coronary artery bypass grafting at this time. PAST MEDICAL HISTORY: Includes coronary artery disease; no prior history of [place]. Renal stones, sleep apnea. He cannot tolerate CPAP mask, carotid disease, morbid obesity with a BMI of 56, hypertension, history of depression. right carotid endarterectomy in 2008. left carotid endarterectomy; head injury at age 12 in a snow sled where he had a railroad tie and had what sounds like a hematoma for which the patient underwent a craniotomy at that time. He has 01/30 all radiology films and labs reviewed no chest pain last night or over the weekend scheduled for surgery on TUE Objective: GENERAL: SKIN: Warm and dry. HEAD: Normocephalic. EYES: No scleral icterus. No injection or drainage. NECK: Supple, trachea midline. No JVD or lymphadenopathy. CARDIOVASCULAR: Regular rate and rhythm without murmurs, gallops, or rubs. RESPIRATORY: Breath sounds equal bilaterally. No accessory muscle use. GASTROINTESTINAL: Abdomen soft, non-tender, nondistended. MUSCULOSKELETAL: No cyanosis, or edema. BACK: Nontender without obvious deformity. No CVA tenderness. Vital Signs Date Time Temp Pulse Resp B/P (MAP) Pulse Ox O2 Delivery O2 Flow Rate FiO2 01/30/18 15:00 73 01/30/18 15:00 98.1 77 20 107/52 (70) 96 01/30/18 14:00 77 01/30/18 13:00 90 5/14/18 12:00 95 01/30/18 11:00 97.9 77 20 109/54 (72) 98 01/30/18 11:00 77 01/30/18 10:00 78 01/30/18 09:00 78 01/30/18 08:00 100 01/30/18 07:09 94 01/30/18 07:09 98.2 96 20 137/70 (92) 100 01/30/18 06:00 90 01/30/18 05:00 82 01/30/18 04:00 77 01/30/18 04:00 97.7 94 18 151/68 (95) 96 01/30/18 03:00 96 01/30/18 02:00 90 01/30/18 01:00 83 01/30/18 00:00 73 01/30/18 00:00 97.4 81 18 141/61 (87) 96 01/29/18 23:00 76 01/29/18 22:00 80 01/29/18 21:00 78 01/29/18 20:00 73 01/29/18 20:00 97.0 76 18 165/72 (103) 98 01/29/18 19:00 74 01/29/18 18:00 87 01/29/18 17:00 90 Result Diagram: 01/27/18 1258 01/29/18 0407 (1) Obstructive sleep apnea (2) Coronary artery disease Plan: for surgery on WED (3) Diabetes mellitus (4) Hyperlipemia (5) Hypertension (6) Morbid obesity with BMI of 50.0-59.9, adult Lena Bravo January 30, 2018 16:17
[2018-01-30] MEDS: ATORVASTATIN 40 MG TAB PO SCH (21:08)
[2018-01-31] VITALS (17 sets, daily range): BP systolic 119–201; BP diastolic 60–88; PULSE 72–93; RESP 16–18; TEMP 98.1–99.2; O2SAT 93–95
[2018-01-31] MEDS: FUROSEMIDE 40 MG TAB PO SCH (08:10)
[2018-01-31] MEDS: CARVEDILOL 12.5 MG TAB PO SCH ×2 (08:10→21:17)
[2018-01-31] MEDS: INSULIN NovoLIN REGULAR SUPPLEMENTAL SCALE SQ SCH ×4 (08:10→21:00)
[2018-01-31] MEDS: TOPIRAMATE 25 MG TAB PO SCH ×2 (08:11→21:16)
[2018-01-31] MEDS: FLUoxetine HCL 20 MG CAP PO SCH (08:11)
[2018-01-31] MEDS: busPIRone HCL 5 MG TAB PO SCH ×2 (08:11→21:17)
[2018-01-31] MEDS: hydrALAZINE HCL 50 MG TAB PO SCH ×2 (08:12→21:16)
[2018-01-31] MEDS: SODIUM CHLORIDE 0.9% FLUSH 10 ML FLUSH IV FLUSH SCH ×2 (08:12→21:17)
[2018-01-31] MEDS: HEPARIN SODIUM - SQ 10,000 UNITS/ML VIAL SQ SCH ×2 (08:12→16:30)
[2018-01-31] MEDS: ASPIRIN EC 81 MG TABEC PO SCH (08:15)
--- NOTE | 2018-01-31 09:18 | HHI.PR ---
Subjective Remarks Nursing denies any deterioration since last night. Patient denies any new complaints. Is ready for surgery tomorrow. Objective Vital Signs Date Time Temp Pulse Resp B/P (MAP) Pulse Ox O2 Delivery O2 Flow Rate FiO2 01/31/18 08:23 98.4 93 18 172/79 (110) 95 01/31/18 06:00 77 01/31/18 05:00 89 01/31/18 04:00 82 01/31/18 03:45 98.3 84 18 119/62 (81) 93 01/31/18 03:00 86 01/31/18 02:00 78 01/31/18 01:00 80 01/31/18 00:00 75 01/30/18 23:45 97.8 76 18 108/55 (72) 93 01/30/18 23:00 102 01/30/18 22:00 76 01/30/18 21:00 82 01/30/18 20:00 90 01/30/18 20:00 97.6 78 18 155/70 (98) 95 01/30/18 19:00 96 01/30/18 18:00 81 01/30/18 17:00 88 01/30/18 16:00 89 01/30/18 15:00 73 01/30/18 15:00 98.1 77 20 107/52 (70) 96 01/30/18 14:00 77 01/30/18 13:00 90 01/30/18 12:00 95 01/30/18 11:00 97.9 77 20 109/54 (72) 98 01/30/18 11:00 77 01/30/18 10:00 78 I/O 01/30/18 01/30/18 01/30/18 01/31/18 01/31/18 01/31/18 07:00 15:00 23:00 07:00 15:00 23:00 Intake Total 120 ml 720 ml 240 ml Output Total 1100 ml 1300 ml 1000 ml Balance -980 ml -580 ml -760 ml Intake Oral 120 ml 720 ml 240 ml Output Urine Total 1100 ml 1300 ml 1000 ml # Bowel Movements 0 0 0 Result Diagram: 01/27/18 1258 01/29/18 0407 Objective Remarks Heart sounds are muffled, otherwise unremarkable, clear lung sounds bilaterally , unlabored breathing Since admission improved lower extremity edema A/P Assessment and Plan 57-year-old white male who was admitted with multivessel coronary artery disease -Status post unsuccessful PCI; cardiothoracic surgery consultation in progress. sx on tuesday for possible CABG.. -continue Telemetry, frequent vital signs -Continue aspirin, coreg and Lipitor -CT chest, carotid ultrasound, lower extremity ultrasounds overall unremarkable , only small pericardial effusion noted on CT chest. Diabetes -on MDSS w BS monitoring. On insulin titration protocol per cardiothoracic surgery is warranted otherwise -diabetic diet in addition to heart healthy Stable chronic diastolic CHF - ECHO shows EF of 60-65%, no mention of diastolic dysfunction - continue home Lasix 40 mg daily - continue home losartan and coreg -Monitor intake/output HTN -Continue home Coreg, Norvasc, continue hydralazine, losartan Anxiety - home buspirone and topiramate (restless leg) -home fluoxetine Discharge Planning Per pt, he is scheduled for sx on tuesday per his conversation w CV sx. Awaiting final recs. Ag Topete MD January 31, 2018 09:18
--- NOTE | 2018-01-31 09:49 | PD.CAR.PN ---
CVT Progress Note Subjective/Hospital Course: A 57-year-old male, history of coronary artery disease and recently started having chest pain again back in December where he had a heart catheterization which showed a high grade stenosis of the LAD and the right coronary artery in the proximal region. He was sent for evaluation for coronary artery bypass grafting at [facility] in [place] and was evaluated by Dr. Taylor and recommended to undergo stepwise angioplasty of the LAD and the RCA secondary to the patient's significant comorbidities which included morbid obesity with a BMI of 56 and a weight of 411 pounds, diabetes mellitus. They attempted balloon angioplasty of the right coronary artery and failure of her stent delivery on 01/09/2018. He was then brought back on 01/26/2018 for staged PCI to the LAD, which was failed intervention and they ended up using a Perclose device to the right groin. He was then transferred to our facility to be evaluated by Dr. Gay Rico for possible coronary artery bypass grafting at this time. PAST MEDICAL HISTORY: Includes coronary artery disease; no prior history of [place]. Renal stones, sleep apnea. He cannot tolerate CPAP mask, carotid disease, morbid obesity with a BMI of 56, hypertension, history of depression. right carotid endarterectomy in 2008. left carotid endarterectomy; head injury at age 12 in a snow sled where he had a railroad tie and had what sounds like a hematoma for which the patient underwent a craniotomy at that time. He has 01/30 all radiology films and labs reviewed no chest pain last night or over the weekend scheduled for surgery on 01/31 no chest pain last pm on room air , feels fair at bedside , for surgery in am Objective: GENERAL: SKIN: Warm and dry. HEAD: Normocephalic. EYES: No scleral icterus. No injection or drainage. NECK: Supple, trachea midline. No JVD or lymphadenopathy. CARDIOVASCULAR: Regular rate and rhythm without murmurs, gallops, or rubs. RESPIRATORY: Breath sounds equal bilaterally. No accessory muscle use. GASTROINTESTINAL: Abdomen soft, non-tender, nondistended. MUSCULOSKELETAL: No cyanosis, or edema. BACK: Nontender without obvious deformity. No CVA tenderness. Vital Signs Date Time Temp Pulse Resp B/P (MAP) Pulse Ox O2 Delivery O2 Flow Rate FiO2 01/31/18 08:23 98.4 93 18 172/79 (110) 95 01/31/18 06:00 77 01/31/18 05:00 89 01/31/18 04:00 82 01/31/18 03:45 98.3 84 18 119/62 (81) 93 01/31/18 03:00 86 01/31/18 02:00 78 01/31/18 01:00 80 01/31/18 00:00 75 01/30/18 23:45 97.8 76 18 108/55 (72) 93 01/30/18 23:00 102 01/30/18 22:00 76 01/30/18 21:00 82 01/30/18 20:00 90 01/30/18 20:00 97.6 78 18 155/70 (98) 95 01/30/18 19:00 96 01/30/18 18:00 81 01/30/18 17:00 88 01/30/18 16:00 89 01/30/18 15:00 73 01/30/18 15:00 98.1 77 20 107/52 (70) 96 01/30/18 14:00 77 01/30/18 13:00 90 01/30/18 12:00 95 01/30/18 11:00 97.9 77 20 109/54 (72) 98 01/30/18 11:00 77 01/30/18 10:00 78 Result Diagram: 01/27/18 1258 01/29/18 0407 (1) Obstructive sleep apnea Plan: does not tolerate CPAP machine (2) Coronary artery disease Plan: for surgery on TUE (3) Diabetes mellitus Plan: insulin sliding scale (4) Hyperlipemia Plan: on statin (5) Hypertension Plan: home meds resumed (6) Morbid obesity with BMI of 50.0-59.9, adult Plan: will need weight loss program after surgery Lena Bravo January 31, 2018 09:49
[2018-01-31] MEDS ORDERED: POTASSIUM CHLORIDE 10 MEQ CONTROLLED RELEASE TAB PO ONE (10:15)
--- NOTE | 2018-01-31 12:33 | RSPPFT ---
DATE OF PROCEDURE: 01/30/18 COMMENTS: Spirometry with FVC of 3.3, FEV1 of 2.5, FEV1/FVC ratio 74%. Post-bronchodilator study was not performed. IMPRESSION: 1. Moderate airways obstruction.
[2018-01-31] MEDS: ATORVASTATIN 40 MG TAB PO SCH (21:17)
[2018-02-01] VITALS (18 sets, daily range): BP systolic 106–175; BP diastolic 42–80; PULSE 76–104; RESP 14–20; TEMP 97.8–100.2; O2SAT 92–100
[2018-02-01] MEDS: HEPARIN SODIUM - SQ 10,000 UNITS/ML VIAL SQ SCH ×4 (00:21→23:19)
[2018-02-01] MEDS: CARVEDILOL 12.5 MG TAB PO SCH ×2 (05:09→20:33)
[2018-02-01] MEDS ORDERED: POVIDONE IODINE 5% (ANTISEPSIS KIT) 4 APPLICATIONS EACH NARE PRN (05:30)
[2018-02-01] MEDS ORDERED: LACTATED RINGER'S 1000 ML IV PRN (05:30)
[2018-02-01] MEDS ORDERED: SODIUM CHLORID 0.9% 500 ML IV PRN (05:30)
[2018-02-01] MEDS ORDERED: CHLORHEXIDINE GLUCONATE 2 % 1 PACK (2 CLOTHS) TOPICAL PRN (05:30)
[2018-02-01] MEDS ORDERED: VANCOMYCIN HCL 1000 MG VIAL ONE ×2 (06:35→09:14)
[2018-02-01] MEDS ORDERED: HEPARIN SODIUM - SQ 10,000 UNITS/ML VIAL ONE (06:35)
[2018-02-01] MEDS: INSULIN NovoLIN REGULAR SUPPLEMENTAL SCALE SQ SCH ×3 (08:00→13:04)
[2018-02-01] MEDS: SODIUM CHLORIDE 0.9% FLUSH 10 ML FLUSH IV FLUSH SCH ×2 (09:00→20:34)
[2018-02-01] MEDS: FLUoxetine HCL 20 MG CAP PO SCH (09:00)
[2018-02-01] MEDS: busPIRone HCL 5 MG TAB PO SCH ×3 (09:00→21:58)
[2018-02-01] MEDS: FUROSEMIDE 40 MG TAB PO SCH (09:00)
[2018-02-01] MEDS: TOPIRAMATE 25 MG TAB PO SCH ×2 (09:00→21:00)
[2018-02-01] MEDS: hydrALAZINE HCL 50 MG TAB PO SCH ×2 (09:00→20:33)
[2018-02-01] MEDS: ASPIRIN EC 81 MG TABEC PO SCH (09:00)
[2018-02-01] MEDS ORDERED: VECURONIUM BROMIDE 20 MG VIAL ONE (09:03)
[2018-02-01] MEDS ORDERED: GLYCOPYRROLATE 0.4 MG/2 ML VIAL ONE (09:52)
[2018-02-01] MEDS ORDERED: POTASSIUM CHLOR 20 MEQ PREMIX 100 ML ONE (10:18)
[2018-02-01] MEDS ORDERED: ARTIFICIAL TEARS OPTH OINT 3.5 APPLIC/3.5 GM TUBO EACH EYE ONE (12:00)
[2018-02-01] MEDS ORDERED: SODIUM CHLOR 0.9% 1000 ML INJ 1,000 ML IV ONE (12:00)
[2018-02-01] MEDS ORDERED: PROTAMINE SULFATE 250 MG/25 ML VIAL IV ONE (12:00)
[2018-02-01] MEDS ORDERED: MAGNESIUM SULFATE 1 GM/2 ML VIAL IV ONE (12:00)
[2018-02-01] MEDS ORDERED: PHENYLEPH/NS 1000 MCG/10 ML SYR IV ONE (12:00)
[2018-02-01] MEDS ORDERED: VECURONIUM BROMIDE 10 MG VIAL IV ONE (12:00)
[2018-02-01] MEDS ORDERED: GLYCOPYRROLATE 0.2 MG/ML VIAL IV ONE (12:00)
[2018-02-01] MEDS ORDERED: SODIUM CHLOR 0.9% 250 ML INJ 250 ML IV ONE (12:00)
[2018-02-01] MEDS ORDERED: FUROSEMIDE 100 MG/10 ML VIAL IV ONE (12:00)
[2018-02-01] MEDS ORDERED: LACTATED RINGER'S 1000 ML INJ 1,000 ML IV ONE (12:00)
[2018-02-01] MEDS ORDERED: HEPARIN SODIUM - SQ 10,000 UNITS/ML VIAL OTHER ONE (12:00)
[2018-02-01] MEDS ORDERED: ePHEDrine/NS 25 MG/5 ML SYRINGE IV ONE (12:00)
[2018-02-01] MEDS ORDERED: DEXMEDETOMIDINE HCL 200 MCG/2 ML VIAL IV ONE (12:00)
[2018-02-01] MEDS ORDERED: DOBUTamine PREMIX DRIP 250 ML IV PRN (12:43)
[2018-02-01] MEDS ORDERED: DOPamine 800 MG/500 ML INJ 500 ML IV PRN (12:45)
[2018-02-01] MEDS ORDERED: ACETAMINOPHEN 650 MG SUPP RECTAL PRN (12:45)
[2018-02-01] MEDS ORDERED: NITROGLYCERIN-D5W 50 MG/250 ML 250 ML IV PRN (12:45)
[2018-02-01] MEDS ORDERED: RESP: ALBUTEROL 2.5 MG/IPRATROPIUM 0.5 MG NEB (PRN) NEB (12:45)
[2018-02-01] MEDS ORDERED: CLEVIDIPINE INJ 50 ML IV PRN (12:45)
[2018-02-01] MEDS ORDERED: RESP: RACEPINEPHRINE 2.25% 0.5 ML NEB NEB PRN (12:45)
[2018-02-01] MEDS ORDERED: POTASSIUM CHLORIDE 20 MEQ CONTROLLED RELEASE TAB PO PRN ×2 (12:45)
[2018-02-01] MEDS ORDERED: SODIUM CHLORIDE 0.9% FLUSH 10 ML FLUSH IV FLUSH PRN (12:45)
[2018-02-01] MEDS ORDERED: ACETAMINOPHEN/HYDROcodone 325 MG/5 MG TAB PO PRN (12:45)
[2018-02-01] MEDS ORDERED: MAGNESIUM SULFATE INJ 2 GM in SODIUM CHLORIDE 0.9% INJ 100 ML IV PRN ×4 (12:45)
[2018-02-01] MEDS ORDERED: METOPROLOL TARTRATE 5 MG/5 ML VIAL IV PUSH PRN (12:45)
[2018-02-01] MEDS ORDERED: ONDANSETRON ODT 4 MG TAB PO PRN (12:45)
[2018-02-01] MEDS ORDERED: ACETAMINOPHEN 325 MG TAB PO PRN (12:45)
[2018-02-01] MEDS ORDERED: SODIUM BICARBONATE 8.4% SOLN 50 MEQ/50 ML VIAL IV PUSH PRN ×2 (12:45)
[2018-02-01] MEDS ORDERED: MORPHINE SULFATE 4 MG/ML INJ IV PUSH PRN (12:45)
[2018-02-01] MEDS ORDERED: KETOROLAC TROMETHAMINE 30 MG/ML (IVP) VIAL IV PUSH PRN (12:45)
[2018-02-01] MEDS ORDERED: DEXTROSE 50% IN WATER 50 ML VIAL(D50) IV PUSH PRN (12:45)
[2018-02-01] MEDS ORDERED: MEPERIDINE HCL 25 MG/ML VIAL IV PUSH PRN (12:45)
[2018-02-01] MEDS ORDERED: POTASSIUM CHLOR 20 MEQ PREMIX 100 ML IV PRN ×3 (12:45)
[2018-02-01] MEDS ORDERED: INSULIN REGULAR (IV INFUSION) 100 UNITS in SODIUM CHLORIDE 0.9% INJ 99 ML IV PRN (12:45)
[2018-02-01] MEDS ORDERED: CALCIUM CHLORIDE 10% 1 GRAM/10 ML VIAL IV PUSH PRN (12:45)
[2018-02-01] MEDS ORDERED: hydrALAZINE HCL 20 MG/ML VIAL IV PUSH PRN (12:45)
[2018-02-01] MEDS ORDERED: Post-op Orders (for Pharmacy) OTHER ONE (12:45)
[2018-02-01] MEDS ORDERED: CALCIUM CHLORIDE INJ 1 GM in SODIUM CHLORIDE 0.9% INJ 100 ML IV PRN (12:45)
[2018-02-01] MEDS ORDERED: PHENYLEPHRINE INJ 40 MG in DEXTROSE 5% IN WATE 500 ML INJ 496 ML IV PRN ×2 (12:45)
--- NOTE | 2018-02-01 12:54 | PD.OP ---
cc: Gay Rico MD Operative Report Date of Surgery: February 01, 2018 Preoperative Diagnosis: Postoperative Diagnosis: Procedure: 1. Urgent Off-pump Coronary Artery Bypass Grafting x 2 with Left Internal Mammary Artery (SAMUEL) to Left Anterior Descending (LAD), reverse saphenous vein graft to the distal Right Coronary Artery (RCA) 2. Left Leg Endoscopic Vein [place] 3. Biomet Sternal Plating 4. Intraoperative Vein Mapping. Surgeon: Gay Rico Birth Attendant(s): Caterina Key Operation and Findings: PREPROCEDURE DIAGNOSES 1. Severe Two Vessel Coronary Artery Disease. 2. Morbid Obesity 3. Diabetes mellitus POSTPROCEDURE DIAGNOSES Same SURGICAL PROCEDURE 1. Urgent Off-pump Coronary Artery Bypass Grafting x 2 with Left Internal Mammary Artery (SAMUEL) to Left Anterior Descending (LAD), reverse saphenous vein graft to the distal Right Coronary Artery (RCA) 2. Left Leg Endoscopic Vein [place] 3. Biomet Sternal Plating 4. Intraoperative Vein Mapping. SURGEON Gay Rico MD RIVER CAPTAIN KAYLIN Loja ANESTHESIA General endotracheal PROGRAM MANAGER SLP ZAHEER Oneill MD PREPARATION ChloraPrep. COUNTS Needle, sponge, and instrument counts were correct. DRAINS Two 32-Mongolian mediastinal tubes. COMPLICATIONS None. INDICATIONS FOR PROCEDURE The patient is a 57-year-old presenting with chest pain and two-vessel CAD. The patient is being brought to the operating room for surgical revascularization therapy. PROCEDURE Patient was brought to the operating room and placed supine on the OR table. Following the induction of adequate general endotracheal anesthesia and placement of appropriate monitoring devices, intraoperative vein mapping was performed which revealed suitable-caliber conduit in bilateral lower extremities. The patient was then prepped and draped in standard sterile fashion. Next, 2500 units of intravenous heparin was given. The left greater saphenous vein was harvested endoscopically. This appeared to be a useable- caliber conduit. Simultaneously, a median sternotomy was performed and the left internal mammary artery dissected free off the posterior sternal table. The patient was systemically heparinized and anticoagulation monitored by serial ACT measurements. The internal mammary artery had good pulsatile flow in it and was a good-caliber conduit. The pericardium was then divided in the midline , the cradle created and targets analyzed. At this point, all anastomoses were performed in a beating-heart fashion using the Maquet stabilizing system. The left internal mammary artery was anastomosed to the distal LAD (2mm) in an end- to-side fashion using 7-0 Prolene. The LAD upto that point was severely and heavily calcified proximally. Segment of saphenous vein graft was then anastomosed to RCA (2.5 mm) in an end-to-side fashion using 7-0 Prolene. The RCA was also very heavily and diffusely diseased vessel and the anastomosis was performed in an area of soft plaque. The proximal anastomosis was then constructed to the ascending aorta in a running manner using 6-0 Prolene. All anastomotic sites were inspected and appeared to be hemostatic and patent. Protamine solution was given. Strict hemostasis was assured. The closure was undertaken. 2 chest tubes were placed. The pericardium was reapproximated in the midline. The sternum was approximated using 3 sternal wires and 3 Biomet sternal plates. The muscular and fascial layer were then closed in 3 layers. The endoscopic vein harvest site was closed in 2 layers. The patient tolerated the procedure well and was transferred to CVICU in stable condition. Gay Rico MD February 01, 2018 12:54
--- NOTE | 2018-02-01 13:58 | RADRPT ---
EXAM DATE/TIME: 02/01/2018 13:36 [place] COMPARISON: CHEST SINGLE AP, January 27, 2018, 11:21. INDICATIONS : S/p cabg. MEDICAL HISTORY : Cardiovascular disease. Hypertension Diabetes mellitus type II. renal stones SURGICAL HISTORY : Appendectomy. bilateral total knee replacements ENCOUNTER: Initial ACUITY: 1 day PAIN SCORE: Non-responsive. LOCATION: Bilateral chest FINDINGS: The heart is enlarged. The patient is post median sternotomy. The endotracheal tube and nasogastric t ube are in good position. There is a left-sided chest tube and a mediastinal drain. The chest tube ap pears in satisfactory position. There are atelectatic changes in the left lower lobe. The patient is post median sternotomy. CONCLUSION: 1. The chest tube, ET tube and nasogastric tube are in satisfactory position. There is a mediastinal drain present as well. 2. There are atelectatic changes in the left lung base. 3. No pneumothorax identified. Jae Chen MD on February 01, 2018 at 13:54 Board Certified Radiologist. This report was verified electronically.
[2018-02-01] MEDS ORDERED: fentaNYL CITRATE 250 MCG/5 ML AMP ONE (13:59)
[2018-02-01] MEDS ORDERED: MIDAZOLAM HCL 2 MG/2 ML VIAL ONE ×2 (13:59)
[2018-02-01] MEDS: ACETAMINOPHEN 1000 MG/100 ML 100 ML IV SCH ×2 (14:13→19:10)
--- NOTE | 2018-02-01 15:28 | HHI.FF ---
Face to Face Verification Diagnosis: (1) S/P CABG x 2 (2) Coronary artery disease (3) Diabetes mellitus (4) Hyperlipemia (5) Hypertension (6) Obstructive sleep apnea (7) Morbid obesity with BMI of 50.0-59.9, adult Physical Therapy Order: Evaluate and Treat Home Health Nursing Order: Signs/symptoms of disease process Diabetic education Medication education-adverse effect Wound care and dressing changes Nursing assessment with vital signs Instructions: Heart and Vascular Surgery patients *Special attention to sternal dressing Mandatory frequency Assess and evaluation, 4 days in a row The next week 3X week 2 times a week for 4 weeks 1 time a week for 5 weeks Schedule Heart and Vascular patients for full 60 day certification period Initial visit Review Open Heart Surgery Discharge Instructions (Sternal precautions, Activity, Elastic hose, Incision care, Driving, Incentive spirometry, Smoking, [place], Work and other) Need Betadine to paint incision Medication reconciliation Importance of follow up care/ check on appointments Make calendar record temperature daily When to call [facility] nurse, review instructions, phone list Incentive Spirometry, demonstration Visit 1- Begin discharge instruction for patient family and/ or caregiver using teach back method- Signs and symptoms of infection Disease characteristics Medicines and side effects Foods and nutrition/ appetite Infection control/ hand washing/ hygiene Visit 2- Continue teaching Discharge instructions- include additional information on smoking cessation , sternal dressing (sternal vac) Visit 3- Continue teaching- Cough and deep breathing, incision monitoring. Choose my plate Visit 4- Continue teaching- Discuss limitations Discuss how they are feeling Discuss progress toward goals Remaining visits- continue teaching and monitoring For any questions please call : Tuesday 8am-5pm Heart & Vascular Surgery Office ( Dr. Rico & Dr. Venegas), After Hours / Nights (5pm -8am) Weekends and Holidays Please call [facility] Cardiac Intermediate Care Unit (CIC) Charge Nurse PREVENA Single Use Negative Wound Therapy System Caregiver Instruction Sheet 1. A Prevena dressing system was applied to the chest incision during surgery , to promote wound healing. It works via a suction device (negative pressure wound therapy) to remove low to moderate levels of exudate (drainage) and infectious materials. We recommend that the device stay in place for up to seven days, from day of surgery. 2. Day of Surgery___5/16/18 Day of Removal ____02/08/18 3. The dressing should only be removed by a health wound care nurse. Please arrange removal of device to coincide with Home Health visit and or with Nursing staff at Rehab 4. If skin reddening or irritation of skin occurs, or excessive drainage, please notify the Cardiovascular Surgeons office at [phone]. 5. Light showering is permissible; however the pump should be disconnected and placed in safe location, where it will not get wet. The dressing should not be exposed to direct spray or submerged in water. No bath tub / shower only. Ensure the end of the tubing attached to the dressing is facing down so that water does not enter the top of the tube. 6. To remove Prevena dressing: press purple button to turn off device / remove the suction. Then disconnect the tubing from the pump. The fixation strips should be stretched away from the skin and the dressing lifted at one corner and peeled back until it has been fully removed. 7. After removal, it is ok to shower daily using liquid dial soap and clean wash cloth, rinse and pat dry, and leave incision open to air dry. For any concerns regarding Prevena dressing, and or wounds, please contact Emely Sequeira, patient navigator at [phone] or notify the Cardiovascular Surgeons office at [phone]. Incentive spirometry Q1 hr x 10, while awake, also use acapella device hourly whole awake Sternal Breast Bone Precautions: NO pushing or pulling, ( pt must use sternal pillow to support chest with all activities and with coughing ( takes up to 3 months breast bone to heal ) Daily incision care: ok to shower daily, no tub bath. Wash all incisions with liquid dial soap, clean wash cloth to each site, rinse and pat dry. Observe for any signs of infection, such as drainage which is dark yellow, brito, green or foul smelling. Immediately report to the surgeon any drainage from the chest incision, or legs, and for any abnormal drainage from the chest tube sites. Notify surgeon if any temp >101.5 degrees F. When specialty dressing removed/ or if you do not have one, continue to shower daily as above, then rinse and pat incision dry and paint with betadine daily x 5 days. Allow steri strips to fall off if you have any. Avoid lotions, creams, salves, oils, etc. for the first month Please see attached forms for additional instructions regarding post Open Heart specialty wound vacuum dressings. JORGE or Prevena , Dressing to be removed by Nursing staff on _02/08/[address] Venegas patients , please obtain CBC, BMP, PA & Lat CXR in 2 weeks, results to Dr. Venegas ( prescription will be given) ( ) (Tele: [phone]) , F/U appointment: as per DC instructions: PCP in 2 weeks, CV surgeon 2 weeks, [facility] 3-4 weeks For any questions regarding incisions/ dressing / meds / post op care or above Symptoms, Tuesday 8am-5pm Heart & Vascular Surgery Office ( Dr. Rico & Dr. Venegas), After Hours / Nights (5pm -8am) Weekends and Holidays Please call [facility] Cardiac Intermediate Care Unit (CIC) Charge Nurse I have seen patient Antony Sanches on 02/01/18. My clinical findings support the need for the requested home health care services because: Patient has SOB Deconditioned w/ increased weakness I certify that my clinical findings support that this patient is homebound because: Post-op weakness Lena Bravo February 01, 2018 15:28
[2018-02-01] MEDS: RESP: ALBUTEROL 2.5 MG/IPRATROPIUM 0.5 MG NEB (SCH) NEB ×2 (15:59→20:29)
--- NOTE | 2018-02-01 16:05 | HHI.PR ---
Subjective Remarks Status post emergent CABG 2 Seen postoperatively Has already been extubated Denies any current complaints at this time A.m. labs Discussed with RN and patient Objective Vitals Vital Signs Date Time Temp Pulse Resp B/P (MAP) Pulse Ox O2 Delivery O2 Flow Rate FiO2 02/01/18 15:00 92 Nasal Cannula 4.00 02/01/18 15:00 76 02/01/18 15:00 97.8 82 18 113/60 (77) 92 116/46 (69) 02/01/18 14:54 94 Nasal Cannula 5.00 02/01/18 14:50 94 Nasal Cannula 5 02/01/18 14:11 Nasal Cannula 50 02/01/18 14:00 50 02/01/18 13:20 77 02/01/18 13:20 97 50 02/01/18 13:20 97.8 82 14 106/67 (80) 100 107/50 (69) 02/01/18 13:20 50 02/01/18 06:00 98.3 87 16 158/72 (100) 94 02/01/18 06:00 84 02/01/18 05:00 84 02/01/18 04:00 82 02/01/18 03:00 83 02/01/18 02:00 104 02/01/18 01:00 84 02/01/18 00:00 98.6 80 16 175/80 (111) 96 01/31/18 23:00 74 01/31/18 22:00 80 01/31/18 21:00 86 01/31/18 20:00 98.6 84 16 201/88 (125) 95 01/31/18 20:00 84 01/31/18 19:00 79 01/31/18 16:40 72 I/O 01/31/18 01/31/18 01/31/18 02/01/18 02/01/18 02/01/18 07:00 15:00 23:00 07:00 15:00 23:00 Intake Total 240 ml 480 ml 3150 ml Output Total 1000 ml 800 ml 800 ml Balance -760 ml -320 ml 2350 ml Intake Oral 240 ml 480 ml 240 ml IV Total 310 ml Autotransfusion 500 ml Other 2100 ml Output Urine Total 1000 ml 800 ml 600 ml Stool Total 0 ml Estimated Blood Loss 200 ml # Voids 2 # Bowel Movements 0 Result Diagram: 01/29/18 0407 Imaging Last Impressions Chest X-Ray 02/01/18 0000 Signed Impressions: Service Date/Time: Thursday, February 01, 2018 13:36 - CONCLUSION: 1. The chest tube, ET tube and nasogastric tube are in satisfactory position. There is a mediastinal drain present as well. 2. There are atelectatic changes in the left lung base. 3. No pneumothorax identified. Jae Chen MD Lower Extremity Ultrasound 01/27/18 0000 Signed Impressions: Service Date/Time: Saturday, January 27, 2018 11:46 - CONCLUSION: Venous mapping as above Steven Chen MD FACR Chest CT 01/27/18 0000 Signed Impressions: Service Date/Time: Sunday, January 28, 2018 18:26 - CONCLUSION: 1. No focal or acute intrathoracic disease. 2. Small pericardial effusion. John Elliott MD Carotid Artery Ultrasound 01/27/18 0000 Signed Impressions: Service Date/Time: Saturday, January 27, 2018 10:53 - CONCLUSION: 1. Mild atherosclerotic plaquing at the right carotid bifurcation. Mild to moderate atherosclerotic plaque involving the left common carotid artery and bifurcation. 2. No focal high grade or hemodynamically significant stenosis. John Elliott MD Objective Remarks GENERAL: Awake alert and oriented 3 talkative and cooperative SKIN: Warm and dry. HEAD: Atraumatic. Normocephalic. EYES: Pupils equal and round. No scleral icterus. No injection or drainage. Extraocular muscles intact ENT: No nasal bleeding or discharge. Mucous membranes pink and moist. Tongue is midline NECK: Trachea midline. No JVD. Supple CARDIOVASCULAR: Regular rate and rhythm. S1-S2 no S3 or S4 positive rub chest dressed RESPIRATORY: No accessory muscle use. Clear to auscultation. Breath sounds equal bilaterally. Decreased breath sounds bilaterally GASTROINTESTINAL: Abdomen soft, non-tender, nondistended. Hepatic and splenic margins not palpable. Obese MUSCULOSKELETAL: Extremities without clubbing, cyanosis, or edema. No obvious deformities. NEUROLOGICAL: Awake and alert. No obvious cranial nerve deficits. Motor grossly within normal limits. 4 out of 5 muscle strength in the arms and legs. Normal speech. PSYCHIATRIC: Appropriate mood and affect; insight and judgment normal. Procedures Date of Surgery: February 01, 2018 Preoperative Diagnosis: Postoperative Diagnosis: Procedure: 1. Urgent Off-pump Coronary Artery Bypass Grafting x 2 with Left Internal Mammary Artery (SAMUEL) to Left Anterior Descending (LAD), reverse saphenous vein graft to the distal Right Coronary Artery (RCA) 2. Left Leg Endoscopic Vein [place] 3. Biomet Sternal Plating 4. Intraoperative Vein Mapping. Surgeon: Gay Rico Sanitation Truck Cleaner(s): Caterina Key Operation and Findings: PREPROCEDURE DIAGNOSES 1. Severe Two Vessel Coronary Artery Disease. 2. Morbid Obesity 3. Diabetes mellitus POSTPROCEDURE DIAGNOSES Same SURGICAL PROCEDURE 1. Urgent Off-pump Coronary Artery Bypass Grafting x 2 with Left Internal Mammary Artery (SAMUEL) to Left Anterior Descending (LAD), reverse saphenous vein graft to the distal Right Coronary Artery (RCA) 2. Left Leg Endoscopic Vein [place] 3. Biomet Sternal Plating 4. Intraoperative Vein Mapping. SURGEON Gay Rico MD GOVERNMENT MINISTER KAYLIN Loja ANESTHESIA General endotracheal THERAPIST OCCUPATIONAL ZAHEER Oneill MD PREPARATION ChloraPrep. COUNTS Needle, sponge, and instrument counts were correct. DRAINS Two 32-[place] mediastinal tubes. COMPLICATIONS None. INDICATIONS FOR PROCEDURE The patient is a 57-year-old presenting with chest pain and two-vessel CAD. The patient is being brought to the operating room for surgical revascularization therapy. PROCEDURE Patient was brought to the operating room and placed supine on the OR table. Following the induction of adequate general endotracheal anesthesia and placement of appropriate monitoring devices, intraoperative vein mapping was performed which revealed suitable-caliber conduit in bilateral lower extremities. The patient was then prepped and draped in standard sterile fashion. Next, 2500 units of intravenous heparin was given. The left greater saphenous vein was harvested endoscopically. This appeared to be a useable- caliber conduit. Simultaneously, a median sternotomy was performed and the left internal mammary artery dissected free off the posterior sternal table. The patient was systemically heparinized and anticoagulation monitored by serial ACT measurements. The internal mammary artery had good pulsatile flow in it and was a good-caliber conduit. The pericardium was then divided in the midline , the cradle created and targets analyzed. At this point, all anastomoses were performed in a beating-heart fashion using the [employer] stabilizing system. The left internal mammary artery was anastomosed to the distal LAD (2mm) in an end- to-side fashion using 7-0 Prolene. The LAD upto that point was severely and heavily calcified proximally. Segment of saphenous vein graft was then anastomosed to RCA (2.5 mm) in an end-to-side fashion using 7-0 Prolene. The RCA was also very heavily and diffusely diseased vessel and the anastomosis was performed in an area of soft plaque. The proximal anastomosis was then constructed to the ascending aorta in a running manner using 6-0 Prolene. All anastomotic sites were inspected and appeared to be hemostatic and patent. Protamine solution was given. Strict hemostasis was assured. The closure was undertaken. 2 chest tubes were placed. The pericardium was reapproximated in the midline. The sternum was approximated using 3 sternal wires and 3 Biomet sternal plates. The muscular and fascial layer were then closed in 3 layers. The endoscopic vein harvest site was closed in 2 layers. The patient tolerated the procedure well and was transferred to CVICU in stable condition. Gay Rico MD Medications and IVs Current Medications Amlodipine Besylate (Norvasc) 5 mg DAILY PO ; Start 01/27/18 at 09:00; Stop 08/06 at 10:03; Status DC Aspirin (Ecotrin Ec) 81 mg DAILY PO Last administered on 01/31/18at 08:15; Start 01/27/18 at 09:00; Stop 02/01/18 at 13:29; Status DC Atorvastatin Calcium (Lipitor) 40 mg HS PO Last administered on 01/31/18at 21:17 ; Start 01/26/18 at 21:00 Carvedilol (Coreg) 25 mg BID PO Last administered on 02/01/18at 05:09; Start 07/06 at 21:00 Furosemide (Lasix) 40 mg DAILY PO Last administered on 01/31/18at 08:10; Start 01/27/18 at 09:00 Hydralazine HCl (Apresoline) 50 mg BID PO Last administered on 01/31/18at 21:16 ; Start 01/26/18 at 21:00 Losartan Potassium (Cozaar) 100 mg DAILY PO ; Start 01/27/18 at 09:00; Stop 09/05 at 08:28; Status DC Non-Formulary Medication 1 cap HS PO ; Start 01/26/18 at 21:00; Status UNV Dextrose (D50w (Vial) Inj) 50 ml UNSCH PRN IV PUSH HYPOGLYCEMIA-SEE COMMENTS; Start 01/26/18 at 18:45; Stop 02/01/18 at 13:29; Status DC Glucagon (Glucagon Inj) 1 mg UNSCH PRN OTHER HYPOGLYCEMIA-SEE COMMENTS; Start 01/26/18 at 18:45; Stop 02/01/18 at 13:29; Status DC Insulin Human Regular (NovoLIN R SUPPLEMENTAL SCALE) 1 ACHS SLIDING SCALE SQ Last administered on 01/26/18at 21:52; Start 01/26/18 at 21:00; Stop 01/27/18 at 09:06; Status DC Buspirone HCl (Buspar) 7.5 mg DAILY PO Last administered on 01/31/18at 08:11; Start 01/27/18 at 09:00 Buspirone HCl (Buspar) 15 mg HS PO Last administered on 01/31/18at 21:17; Start 01/26/18 at 21:00 Topiramate (Topamax) 50 mg BID PO Last administered on 01/31/18at 21:16; Start 01/26/18 at 21:00 Miscellaneous (Pill Splitter) 1 ea UNSCH PRN OTHER SEE LABEL COMMENTS; Start at 19:15 Heparin Sodium (Porcine) (Heparin Inj) 5,000 units Q8H SQ Last administered on 02/01/18at 00:21; Start 01/27/18 at 00:00 Insulin Human Regular (NovoLIN R SUPPLEMENTAL SCALE) 1 ACHS SLIDING SCALE SQ Last administered on 01/31/18at 21:00; Start 01/27/18 at 12:00; Stop 02/01/18 at 13:29; Status DC Fluoxetine HCl (PROzac) 20 mg DAILY PO Last administered on 01/31/18at 08:11; Start 01/27/18 at 10:00 Insulin Human Regular (NovoLIN R INJ) 2 units NOW ONCE SQ Last administered on 01/27/18at 10:02; Start 01/27/18 at 09:45; Stop 01/27/18 at 09:46; Status DC Amlodipine Besylate (Norvasc) 10 mg DAILY PO Last administered on 01/31/18at 08: 11; Start 01/28/18 at 09:00 Sodium Chloride (NS Flush) 2 ml BID IV FLUSH Last administered on 01/31/18at 21: 17; Start 01/27/18 at 21:00; Stop 02/01/18 at 13:29; Status DC Sodium Chloride (NS Flush) 2 ml UNSCH PRN IV FLUSH FLUSH AFTER USING IV ACCESS ; Start 01/27/18 at 10:15; Stop 02/01/18 at 13:29; Status DC Papaverine HCl 60 mg/Nitroglycerin 100 mcg/Verapamil HCl 100 mg/Sodium Chloride 100 ml @ 0 mls/hr MANAGER G[employer] IRRIGATION Last administered on 02/01/18at 10:28; Start 01/27/18 at 10:15; Stop 02/03/18 at 10:14 Vancomycin HCl 1000 mg/Sodium Chloride 1,000 ml @ 0 mls/hr MANAGER G[employer] IRRIGATION Last administered on 02/01/18at 10:31; Start 01/27/18 at 10:15; Stop 02/03/18 at 10:14 Vancomycin HCl 1750 mg/Sodium Chloride 517.5 ml @ 258.75 mls/ hr MANAGER GAS IV Last administered on 02/01/18at 08:40; Start 01/27/18 at 10:15; Stop 02/01/18 at 13:29; Status DC Metoprolol Tartrate (Lopressor) 12.5 mg MANAGER GAS PO ; Start 01/27/18 at 10:15; Stop 02/01/18 at 13:29; Status DC Chlorhexidine Gluconate (Hibiclens 4% Top Soln) 1 applic MANAGER G[employer] TOPICAL Last administered on 02/01/18at 01:10; Start 01/27/18 at 10:15; Stop 02/03/18 at 10:14 Insulin Human Regular 100 units/ Sodium Chloride 100 ml @ 3 mls/hr TITRATE PRN IV for blood glucose control; Start 01/27/18 at 10:15; Stop 02/01/18 at 13:29; Status DC Dextrose (D50w (Vial) Inj) 50 ml UNSCH PRN IV PUSH HYPOGLYCEMIA-SEE COMMENTS; Start 01/27/18 at 10:15; Stop 02/01/18 at 13:29; Status DC Losartan Potassium (Cozaar) 50 mg DAILY PO Last administered on 01/30/18at 07:48 ; Start 01/28/18 at 09:00; Status Future Hold Potassium Chloride (KCl) 30 meq ONCE ONCE PO Last administered on 01/31/18at 10 :35; Start 01/31/18 at 10:15; Stop 01/31/18 at 10:16; Status DC Lactated Ringer's 1,000 ml @ 30 mls/hr Q24H PRN IV SEE LABEL COMMENTS; Start at 05:30; Stop 02/01/18 at 13:08; Status DC Sodium Chloride 500 ml @ 30 mls/hr [id number] PRN IV SEE LABEL COMMENTS; Start at 05:30; Stop 02/01/18 at 13:08; Status DC Povidone Iodine (Betadine 5% Antisepsis Kit) 1 applic MANAGER GAS PRN EACH NARE SEE LABEL COMMENTS; Start 02/01/18 at 05:30; Stop 02/04/18 at 05:29 Chlorhexidine Gluconate (Chlorhexidine 2% Cloth) 3 pack MANAGER GAS PRN TOPICAL SEE LABEL COMMENTS; Start 02/01/18 at 05:30; Stop 02/04/18 at 05:29 Heparin Sodium (Porcine) (Heparin Inj) 40,000 units STK-MED ONCE .ROUTE Last administered on 02/01/18at 09:07; Start 02/01/18 at 06:35; Stop 02/01/18 at 06:36 ; Status DC Vancomycin HCl (Vancomycin Inj) 4,000 mg STK-MED ONCE .ROUTE Last administered on 02/01/18at 09:07; Start 02/01/18 at 06:35; Stop 02/01/18 at 06:36; Status DC Vecuronium [place] (Norcuron 20 Mg Inj) 20 mg STK-MED ONCE .ROUTE ; Start at 09:03; Stop 02/01/18 at 09:04; Status DC Vancomycin HCl (Vancomycin Inj) 1,000 mg STK-MED ONCE .ROUTE ; Start 02/01/18 at 09:14; Stop 02/01/18 at 09:15; Status DC Ephedrine Sulfate (ePHEDrine INJ) 200 mg STK-MED ONCE .ROUTE ; Start 02/01/18 at 09:52; Stop 02/01/18 at 09:53; Status DC Glycopyrrolate (Robinul Inj) 1.6 mg STK-MED ONCE .ROUTE ; Start 02/01/18 at 09: 52; Stop 02/01/18 at 09:53; Status DC Potassium Chloride 100 ml @ As Directed STK-MED ONCE .ROUTE ; Start 02/01/18 at 10:18; Stop 02/01/18 at 10:19; Status DC Sodium Chloride (NS Flush) 2 ml BID IV FLUSH ; Start 02/01/18 at 21:00 Sodium Chloride (NS Flush) 2 ml UNSCH PRN IV FLUSH FLUSH AFTER USING IV ACCESS ; Start 02/01/18 at 12:45 Dexmedetomidine HCl 200 mcg/ Sodium Chloride 52 ml @ 9.43 mls/hr TITRATE PRN IV SEDATION; Start 02/01/18 at 12:45 Nitroglycerin/ Dextrose 250 ml @ 1.5 mls/hr TITRATE PRN IV Maintain BP < 140/ 90 mmHg; Start 02/01/18 at 12:45 Dobutamine HCl/ Dextrose 250 ml @ 0 mls/hr Q0M PRN IV Rate change per MD; Start 02/01/18 at 12:43 Dopamine HCl/ Dextrose 500 ml @ 20.419 mls/ hr TITRATE PRN IV Maintain MAP > 65 mmHg; Start 02/01/18 at 12:45 Phenylephrine HCl 40 mg/Dextrose 500 ml @ 30 mls/hr TITRATE PRN IV Maintain MAP > 65 mmHg; Start 02/01/18 at 12:45 Clevidipine 50 ml @ 2 mls/hr TITRATE PRN IV Maintain BP < 140/90 mmHg; Start at 12:45 Albumin Human 250 ml @ 250 mls/hr UNSCH PRN IV SEE LABEL COMMENTS; Start 02/01 at 12:45 Lactated Ringer's 500 ml @ 500 mls/hr Q1H PRN IV SEE LABEL COMMENTS; Start at 12:43 Miscellaneous Information (Misc Post-op Orders (for Pharmacy)) STAT ONCE OTHER ; Start 02/01/18 at 12:45; Stop 02/01/18 at 13:25; Status DC Vancomycin HCl 1750 mg/Sodium Chloride 250 ml @ 250 mls/hr Q12H IV ; Start at 22:00; Stop 02/02/18 at 22:59 Aspirin (Aspirin Chew) 81 mg DAILY PO ; Start 02/02/18 at 09:00 Clopidogrel Bisulfate (Plavix) 75 mg DAILY PO ; Start 02/02/18 at 09:00 Pantoprazole Sodium (Protonix) 40 mg DAILY@06 PO ; Start 02/02/18 at 06:00 Amiodarone HCl (Cordarone) 200 mg Q12HR PO ; Start 02/01/18 at 21:00 Acetaminophen (Tylenol) 650 mg Q4H PRN PO TEMPERATURE > 101 F; Start 02/01/18 at 12:45 Acetaminophen (Tylenol Supp) 650 mg Q4H PRN RECTAL TEMPERATURE > 101 F; Start 02/01/18 at 12:45 Acetaminophen 100 ml @ 400 mls/hr Q6H IV Last administered on 02/01/18at 14:13 ; Start 02/01/18 at 14:00; Stop 02/02/18 at 08:14 Morphine Sulfate (Morphine Inj) 1 mg Q10M PRN IV PUSH PAIN SCALE 1 TO 5; Start 02/01/18 at 12:45 Meperidine HCl (Demerol Inj) 12.5 mg Q4H PRN IV PUSH SEE LABEL COMMENTS; Start 02/01/18 at 12:45 Acetaminophen/ Hydrocodone Bitart ([place] 5-325 Mg) 1 tab Q3H PRN PO PAIN SCALE 1 TO 5; Start 02/01/18 at 12:45 Acetaminophen/ Hydrocodone Bitart ([place] 5-325 Mg) 2 tab Q3H PRN PO PAIN SCALE 6 TO 10; Start 02/01/18 at 12:45 Ketorolac Tromethamine (Toradol Inj) 15 mg Q6H PRN IV PUSH SEE LABEL COMMENTS Last administered on 02/01/18at 15:20; Start 02/01/18 at 12:45; Stop 02/03/18 at 12:44 Fentanyl Citrate (fentaNYL INJ) 25 mcg Q1H PRN IV PUSH BREAKTHROUGH PAIN Last administered on 02/01/18at 14:59; Start 02/01/18 at 12:45 Ondansetron HCl (Zofran Odt) 4 mg Q6H PRN PO NAUSEA OR VOMITING; Start at 12:45 Hydralazine HCl (Apresoline Inj) 10 mg Q4H PRN IV PUSH SEE LABEL COMMENTS; Start 02/01/18 at 12:45; Stop 02/01/18 at 13:30; Status DC Metoprolol Tartrate (Lopressor Inj) 2.5 mg Q1H PRN IV PUSH SEE LABEL COMMENTS; Start 02/01/18 at 12:45 Potassium Chloride 100 ml @ 50 mls/hr UNSCH PRN IV SEE LABEL COMMENTS Last administered on 02/01/18at 13:48; Start 02/01/18 at 12:45; Stop 02/01/18 at 13:48 ; Status DC Potassium Chloride 100 ml @ 50 mls/hr UNSCH PRN IV SEE LABEL COMMENTS; Start 02/01/18 at 12:45 Potassium Chloride 100 ml @ 50 mls/hr UNSCH PRN IV SEE LABEL COMMENTS; Start 02/01/18 at 12:45 Potassium Chloride (KCl) 20 meq UNSCH PRN PO SEE LABEL COMMENTS; Start at 12:45 Potassium Chloride (KCl) 40 meq UNSCH PRN PO SEE LABEL COMMENTS; Start at 12:45 Magnesium Sulfate 2 gm/Sodium Chloride 104 ml @ 100 mls/hr UNSCH PRN IV SEE LABEL COMMENTS; Start 02/01/18 at 12:45 Magnesium Sulfate 2 gm/Sodium Chloride 104 ml @ 50 mls/hr UNSCH PRN IV SEE LABEL COMMENTS; Start 02/01/18 at 12:45 Calcium Chloride 1 gm/Sodium Chloride 110 ml @ 100 mls/hr UNSCH PRN IV SEE LABEL COMMENTS Last administered on 02/01/18at 14:05; Start 02/01/18 at 12:45 Calcium Chloride (Calcium Chloride Inj) 0.5 gm UNSCH PRN IV PUSH SEE LABEL COMMENTS; Start 02/01/18 at 12:45 Insulin Human Regular 100 units/ Sodium Chloride 100 ml @ 3 mls/hr TITRATE PRN IV for blood glucose control; Start 02/01/18 at 12:45 Dextrose (D50w (Vial) Inj) 50 ml UNSCH PRN IV PUSH HYPOGLYCEMIA-SEE COMMENTS; Start 02/01/18 at 12:45 Sodium Bicarbonate (Sodium Bicarbonate 8.4% Inj) 50 meq UNSCH PRN IV PUSH SEE LABEL COMMENTS; Start 02/01/18 at 12:45 Sodium Bicarbonate (Sodium Bicarbonate 8.4% Inj) 100 meq UNSCH PRN IV PUSH SEE LABEL COMMENTS; Start 02/01/18 at 12:45 Albuterol/ Ipratropium (Duoneb Neb) 1 ampule Q6HR NEB NEB ; Start 02/01/18 at 16:00 Albuterol/ Ipratropium (Duoneb Neb) 1 ampule Q2HR NEB PRN NEB WHEEZING; Start 02/01/18 at 12:45 Racepinephrine (Racepinephrine 2.25% Neb) 0.5 ml UNSCH X1 PRN NEB STRIDOR; Start 02/01/18 at 12:45; Stop 02/03/18 at 12:44 Midazolam HCl (Versed Inj) 10 mg STK-MED ONCE .ROUTE ; Start 02/01/18 at 13:59; Stop 02/01/18 at 14:00; Status DC Midazolam HCl (Versed Inj) 2 mg STK-MED ONCE .ROUTE ; Start 02/01/18 at 13:59; Stop 02/01/18 at 14:00; Status DC Fentanyl Citrate (fentaNYL INJ) 1,000 mcg STK-MED ONCE .ROUTE ; Start 02/01/18 at 13:59; Stop 02/01/18 at 14:00; Status DC A/P Assessment and Plan 57-year-old white male who was admitted with multivessel coronary artery disease -Status post unsuccessful PCI; cardiothoracic surgery consultation in progress. sx on 02-01 CABG.. Of 2 vessels -continue Telemetry, frequent vital signs -Continue aspirin, Coreg and Lipitor -CT chest, carotid ultrasound, lower extremity ultrasounds overall unremarkable , only small pericardial effusion noted on CT chest. Diabetes -on MDSS w BS monitoring. On insulin titration protocol per cardiothoracic surgery is warranted otherwise -diabetic diet in addition to heart healthy Stable chronic diastolic CHF - ECHO shows EF of 60-65%, no mention of diastolic dysfunction - continue home Lasix 40 mg daily - continue home losartan and coreg -Monitor intake/output HTN -Continue home Coreg, Norvasc, continue hydralazine, losartan Anxiety - home buspirone and topiramate (restless leg) -home fluoxetine Discharge Planning Pending cardiovascular surgery Steven Mathis DO February 01, 2018 16:05
[2018-02-01] MEDS: ALBUMIN 5% INJ 250 ML IV PRN ×2 (17:48→21:00)
[2018-02-01] MEDS: ACETAMINOPHEN/HYDROcodone 325 MG/5 MG TAB PO PRN (20:13)
[2018-02-01] MEDS: LACTATED RINGER'S 1000 ML INJ 500 ML IV PRN (21:37)
[2018-02-01] MEDS: ATORVASTATIN 40 MG TAB PO SCH (21:57)
[2018-02-01] MEDS: AMIODARONE 200 MG TAB PO SCH (21:57)
[2018-02-01] MEDS ORDERED: VANCOMYCIN INJ 1,750 MG in SODIUM CHLOR 0.9% 250 ML INJ 250 ML IV SCH (22:00)
[2018-02-01] MEDS: DEXMEDETOMIDINE INJ 200 MCG in SODIUM CHLORIDE 0.9% INJ 50 ML IV PRN (22:15)
[2018-02-02] VITALS (15 sets, daily range): BP systolic 105–174; BP diastolic 46–82; PULSE 92–110; RESP 18–20; TEMP 98.3–100.3; O2SAT 91–95
[2018-02-02] MEDS: ACETAMINOPHEN 1000 MG/100 ML 100 ML IV SCH ×2 (02:14→07:55)
[2018-02-02] MEDS: DEXMEDETOMIDINE INJ 200 MCG in SODIUM CHLORIDE 0.9% INJ 50 ML IV PRN (02:18)
[2018-02-02] MEDS: RESP: ALBUTEROL 2.5 MG/IPRATROPIUM 0.5 MG NEB (SCH) NEB ×3 (03:08→13:09)
[2018-02-02] MEDS: LACTATED RINGER'S 1000 ML INJ 500 ML IV PRN (03:45)
[2018-02-02 03:59] LABS: AUTOMATED NEUTROPHIL # 12.1 TH/MM3 (1.8-7.7); BASOPHIL # 0.1 TH/MM3 (0-0.2); BASOPHIL % 0.4 % (0.0-2.0); EOSINOPHIL # 0.1 TH/MM3 (0-0.4); EOSINOPHIL % 0.6 % (0.0-4.0); HEMATOCRIT 29.5 % (39.0-51.0); HEMOGLOBIN 9.8 GM/DL (13.0-17.0); LYMPHOCYTE # 0.1 TH/MM3 (1.0-4.8); MEAN CELL VOLUME 89.5 FL (80.0-100.0); MEAN CORPUSCULAR HEMOGLOBIN 29.6 PG (27.0-34.0); MEAN CORPUSCULAR HGB CONC 33.1 % (32.0-36.0); MEAN PLATELET VOLUME 8.9 FL (7.0-11.0); MONO % 6.7 % (0.0-8.0); MONOCYTE # 0.9 TH/MM3 (0-0.9); NEUT % 91.3 % (16.0-70.0); PLATELET COUNT 209 TH/MM3 (150-450); RED CELL DISTRIBUTION WIDTH 14.5 % (11.6-17.2); WHITE BLOOD COUNT 13.3 TH/MM3 (4.0-11.0)
[2018-02-02 04:14] LABS: ALBUMIN 2.9 GM/DL (3.4-5.0); ALT (GPT) 41 U/L (12-78); AST (GOT) 34 U/L (15-37); BICARBONATE 26.5 MEQ/L (21.0-32.0); BLOOD UREA NITROGEN 17 MG/DL (7-18); CALCIUM 7.8 MG/DL (8.5-10.1); CHLORIDE 110 MEQ/L (98-107); CREATININE 0.95 MG/DL (0.60-1.30); GLOMERULAR FILTRATION RATE 81 ML/MIN (>89); GLUCOSE,RANDOM 129 MG/DL (74-106); MAGNESIUM 1.9 MG/DL (1.5-2.5); PHOSPHORUS 2.6 MG/DL (2.5-4.9); SODIUM (NA) 142 MEQ/L (136-145)
[2018-02-02 04:22] LABS: ALKALINE PHOSPHATASE 72 U/L (45-117); FREE T4 1.09 NG/DL (0.76-1.46); TOTAL BILIRUBIN ADULT 0.6 MG/DL (0.2-1.0); TOTAL PROTEIN 5.5 GM/DL (6.4-8.2)
--- NOTE | 2018-02-02 04:46 | RADRPT ---
EXAM DATE/TIME: 02/02/2018 03:46 [facility] COMPARISON: CHEST SINGLE AP, February 01, 2018, 13:36. INDICATIONS : Shortness of breath, possible pulmonary disease. MEDICAL HISTORY : Cardiovascular disease. Hypertension Diabetes mellitus type II. Renal calculi SURGICAL HISTORY : Appendectomy. Total knee replacement, left. Total knee replacement, right. ENCOUNTER: Subsequent ACUITY: 2 days PAIN SCORE: 9/10 LOCATION: Bilateral chest FINDINGS: A single view of the chest demonstrates the lungs to be symmetrically aerated without evidence of mas s, infiltrate or effusion. Left-sided thoracostomy tube. The cardiomediastinal contours are unremarka ble. Osseous structures are intact. Median sternotomy wires. CONCLUSION: No acute cardiopulmonary disease. Guicho Doe Jr., MD on February 02, 2018 at 4:43 Board Certified Radiologist. This report was verified electronically.
[2018-02-02] MEDS: PANTOPRAZOLE SOD 40 MG DELAYED RELEASE TAB PO SCH (06:00)
[2018-02-02] MEDS: ACETAMINOPHEN/HYDROcodone 325 MG/5 MG TAB PO PRN ×5 (06:14→20:24)
[2018-02-02] MEDS ORDERED: DEXTROSE 50% IN WATER 50 ML VIAL(D50) IV PUSH PRN (08:30)
[2018-02-02] MEDS ORDERED: POTASSIUM CHLORIDE 20 MEQ CONTROLLED RELEASE TAB PO ONE (08:30)
[2018-02-02] MEDS ORDERED: INSULIN DETEMIR 100 UNITS/ML VIAL SQ ONE (08:30)
[2018-02-02] MEDS ORDERED: BISACODYL 10 MG SUPP RECTAL PRN (08:30)
[2018-02-02] MEDS ORDERED: SOD PHOSPHATE/SOD BIPHOSPHATE (ADULT) ENEMA 133ML RECTAL PRN (08:30)
[2018-02-02] MEDS ORDERED: GLUCAGON 1 MG/ML VIAL OTHER PRN (08:30)
[2018-02-02] MEDS ORDERED: FUROSEMIDE 40 MG/4 ML VIAL IV PUSH ONE (08:30)
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
[2018-02-02] MEDS: MAGNESIUM HYDROXIDE SUSP 30 ML CUP PO SCH (09:00)
[2018-02-02] MEDS: MULTIVITAMINS/MINERALS THERAPEUTIC TAB PO SCH (09:09)
[2018-02-02] MEDS: DOCUSATE SODIUM 100 MG CAP PO SCH ×2 (09:09→20:22)
[2018-02-02] MEDS: SODIUM CHLORIDE 0.9% FLUSH 10 ML FLUSH IV FLUSH SCH ×2 (09:10→20:39)
[2018-02-02] MEDS: CARVEDILOL 6.25 MG TAB PO SCH ×2 (09:10→20:23)
[2018-02-02] MEDS: busPIRone HCL 5 MG TAB PO SCH ×2 (09:11→20:23)
[2018-02-02] MEDS: FLUoxetine HCL 20 MG CAP PO SCH (09:12)
[2018-02-02] MEDS: CLOPIDOGREL 75 MG TAB PO SCH (09:28)
[2018-02-02] MEDS: ASPIRIN 81 MG CHEW TAB PO SCH (09:29)
[2018-02-02] MEDS: TOPIRAMATE 25 MG TAB PO SCH ×2 (09:29→20:23)
[2018-02-02] MEDS: AMIODARONE 200 MG TAB PO SCH ×2 (09:29→20:23)
--- NOTE | 2018-02-02 09:53 | HHI.PR ---
Subjective Remarks Status post emergent CABG 2 Seen postoperatively Has already been extubated Denies any current complaints at this time A.m. labs Discussed with RN and patient 5-17 A-LINE BEING DISCONTINUED WEANING OFF INSULIN DRIP DW RN AND PT AND FAMILY AND [facility] AM LABS INCENTIVE SPIROMETRY PT AND OT Objective Vitals Vital Signs Date Time Temp Pulse Resp B/P (MAP) Pulse Ox O2 Delivery O2 Flow Rate FiO2 02/02/18 08:51 91 Nasal Cannula 3.00 02/02/18 07:00 99.7 99 18 121/65 (83) 91 105/46 (65) 02/02/18 07:00 98 02/02/18 07:00 92 Nasal Cannula 3.00 02/02/18 03:15 100.3 96 20 119/63 (81) 95 110/47 (68) 02/02/18 03:00 94 02/01/18 23:12 100.2 91 20 112/56 (74) 95 122/42 (68) 02/01/18 23:00 90 02/01/18 20:29 94 Nasal Cannula 4.00 02/01/18 19:46 98.6 02/01/18 19:30 100.1 94 20 116/79 (91) 94 113/52 (72) 02/01/18 19:30 94 Nasal Cannula 4.00 02/01/18 19:00 90 02/01/18 17:01 97 Nasal Cannula 4.00 02/01/18 15:00 92 Nasal Cannula 4.00 02/01/18 15:00 76 02/01/18 15:00 97.8 82 18 113/60 (77) 92 116/46 (69) 02/01/18 14:54 94 Nasal Cannula 5.00 02/01/18 14:50 94 Nasal Cannula 5 02/01/18 14:11 Nasal Cannula 50 02/01/18 14:00 50 02/01/18 13:20 77 02/01/18 13:20 97 50 02/01/18 13:20 97.8 82 14 106/67 (80) 100 107/50 (69) 02/01/18 13:20 50 I/O 02/01/18 02/01/18 02/01/18 02/02/18 02/02/18 02/02/18 07:00 15:00 23:00 07:00 15:00 23:00 Intake Total 3150 ml 1220 ml 903 ml Output Total 800 ml 530 ml 660 ml Balance 2350 ml 690 ml 243 ml Intake Oral 240 ml 120 ml 720 ml IV Total 310 ml 1100 ml 183 ml Autotransfusion 500 ml Other 2100 ml Output Urine Total 600 ml 200 ml 340 ml Stool Total 0 ml 0 ml Gastric Drainage Total 100 ml Chest Tube Drainage Total 230 ml 320 ml Estimated Blood Loss 200 ml # Bowel Movements 0 Result Diagram: 02/02/18 0328 02/02/18 0328 Other Results Laboratory Tests Test 02/02/18 03:28 White Blood Count 13.3 TH/MM3 Red Blood Count 3.30 MIL/MM3 Hemoglobin 9.8 GM/DL Hematocrit 29.5 % Mean Corpuscular Volume 89.5 FL Mean Corpuscular Hemoglobin 29.6 PG Mean Corpuscular Hemoglobin Concent 33.1 % Red Cell Distribution Width 14.5 % Platelet Count 209 TH/MM3 Mean Platelet Volume 8.9 FL Neutrophils (%) (Auto) 91.3 % Lymphocytes (%) (Auto) 1.0 % Monocytes (%) (Auto) 6.7 % Eosinophils (%) (Auto) 0.6 % Basophils (%) (Auto) 0.4 % Neutrophils # (Auto) 12.1 TH/MM3 Lymphocytes # (Auto) 0.1 TH/MM3 Monocytes # (Auto) 0.9 TH/MM3 Eosinophils # (Auto) 0.1 TH/MM3 Basophils # (Auto) 0.1 TH/MM3 CBC Comment DIFF FINAL Differential Comment Blood Urea Nitrogen 17 MG/DL Creatinine 0.95 MG/DL Random Glucose 129 MG/DL Total Protein 5.5 GM/DL Albumin 2.9 GM/DL Calcium Level 7.8 MG/DL Phosphorus Level 2.6 MG/DL Magnesium Level 1.9 MG/DL Alkaline Phosphatase 72 U/L Aspartate Amino Transf (AST/SGOT) 34 U/L Alanine Aminotransferase (ALT/SGPT) 41 U/L Total Bilirubin 0.6 MG/DL Sodium Level 142 MEQ/L Potassium Level 3.9 MEQ/L Chloride Level 110 MEQ/L Carbon Dioxide Level 26.5 MEQ/L Anion Gap 6 MEQ/L Estimat Glomerular Filtration Rate 81 ML/MIN Free Thyroxine 1.09 NG/DL Thyroid Stimulating Hormone 3rd Gen 0.491 uIU/ML Imaging Last Impressions Chest X-Ray 02/02/18 0500 Signed Impressions: Service Date/Time: January 03:46 - CONCLUSION: No acute cardiopulmonary disease. Guicho Doe Jr., MD Lower Extremity Ultrasound 01/27/18 0000 Signed Impressions: Service Date/Time: Saturday, January 27, 2018 11:46 - CONCLUSION: Venous mapping as above Steven Chen MD FACR Chest CT 01/27/18 0000 Signed Impressions: Service Date/Time: Sunday, January 28, 2018 18:26 - CONCLUSION: 1. No focal or acute intrathoracic disease. 2. Small pericardial effusion. John Elliott MD Carotid Artery Ultrasound 01/27/18 0000 Signed Impressions: Service Date/Time: Saturday, January 27, 2018 10:53 - CONCLUSION: 1. Mild atherosclerotic plaquing at the right carotid bifurcation. Mild to moderate atherosclerotic plaque involving the left common carotid artery and bifurcation. 2. No focal high grade or hemodynamically significant stenosis. John Elliott MD Objective Remarks GENERAL: Awake alert and oriented 3 talkative and cooperative SKIN: Warm and dry. HEAD: Atraumatic. Normocephalic. EYES: Pupils equal and round. No scleral icterus. No injection or drainage. Extraocular muscles intact ENT: No nasal bleeding or discharge. Mucous membranes pink and moist. Tongue is midline NECK: Trachea midline. No JVD. Supple CARDIOVASCULAR: Regular rate and rhythm. S1-S2 no S3 or S4 positive rub chest dressed RESPIRATORY: No accessory muscle use. Clear to auscultation. Breath sounds equal bilaterally. Decreased breath sounds bilaterally GASTROINTESTINAL: Abdomen soft, non-tender, nondistended. Hepatic and splenic margins not palpable. Obese MUSCULOSKELETAL: Extremities without clubbing, cyanosis, or edema. No obvious deformities. NEUROLOGICAL: Awake and alert. No obvious cranial nerve deficits. Motor grossly within normal limits. 4 out of 5 muscle strength in the arms and legs. Normal speech. PSYCHIATRIC: Appropriate mood and affect; insight and judgment normal. Procedures Date of Surgery: February 01, 2018 Preoperative Diagnosis: Postoperative Diagnosis: Procedure: 1. Urgent Off-pump Coronary Artery Bypass Grafting x 2 with Left Internal Mammary Artery (SAMUEL) to Left Anterior Descending (LAD), reverse saphenous vein graft to the distal Right Coronary Artery (RCA) 2. Left Leg Endoscopic Vein [place] 3. Biomet Sternal Plating 4. Intraoperative Vein Mapping. Surgeon: Gay Rico Medical Billing Assistant(s): Caterina Key Operation and Findings: PREPROCEDURE DIAGNOSES 1. Severe Two Vessel Coronary Artery Disease. 2. Morbid Obesity 3. Diabetes mellitus POSTPROCEDURE DIAGNOSES Same SURGICAL PROCEDURE 1. Urgent Off-pump Coronary Artery Bypass Grafting x 2 with Left Internal Mammary Artery (SAMUEL) to Left Anterior Descending (LAD), reverse saphenous vein graft to the distal Right Coronary Artery (RCA) 2. Left Leg Endoscopic Vein [place] 3. Biomet Sternal Plating 4. Intraoperative Vein Mapping. SURGEON Gay Rico MD METEOROLOGICAL OBSERVER KAYLIN Loja ANESTHESIA General endotracheal DISPATCH SPECIALIST ZAHEER Oneill MD PREPARATION ChloraPrep. COUNTS Needle, sponge, and instrument counts were correct. DRAINS Two 32-Tamazight mediastinal tubes. COMPLICATIONS None. INDICATIONS FOR PROCEDURE The patient is a 57-year-old presenting with chest pain and two-vessel CAD. The patient is being brought to the operating room for surgical revascularization therapy. PROCEDURE Patient was brought to the operating room and placed supine on the OR table. Following the induction of adequate general endotracheal anesthesia and placement of appropriate monitoring devices, intraoperative vein mapping was performed which revealed suitable-caliber conduit in bilateral lower extremities. The patient was then prepped and draped in standard sterile fashion. Next, 2500 units of intravenous heparin was given. The left greater saphenous vein was harvested endoscopically. This appeared to be a useable- caliber conduit. Simultaneously, a median sternotomy was performed and the left internal mammary artery dissected free off the posterior sternal table. The patient was systemically heparinized and anticoagulation monitored by serial ACT measurements. The internal mammary artery had good pulsatile flow in it and was a good-caliber conduit. The pericardium was then divided in the midline , the cradle created and targets analyzed. At this point, all anastomoses were performed in a beating-heart fashion using the Leixirt stabilizing system. The left internal mammary artery was anastomosed to the distal LAD (2mm) in an end- to-side fashion using 7-0 Prolene. The LAD upto that point was severely and heavily calcified proximally. Segment of saphenous vein graft was then anastomosed to RCA (2.5 mm) in an end-to-side fashion using 7-0 Prolene. The RCA was also very heavily and diffusely diseased vessel and the anastomosis was performed in an area of soft plaque. The proximal anastomosis was then constructed to the ascending aorta in a running manner using 6-0 Prolene. All anastomotic sites were inspected and appeared to be hemostatic and patent. Protamine solution was given. Strict hemostasis was assured. The closure was undertaken. 2 chest tubes were placed. The pericardium was reapproximated in the midline. The sternum was approximated using 3 sternal wires and 3 Biomet sternal plates. The muscular and fascial layer were then closed in 3 layers. The endoscopic vein harvest site was closed in 2 layers. The patient tolerated the procedure well and was transferred to CVICU in stable condition. Gay Rico MD Medications and IVs Current Medications Amlodipine Besylate (Norvasc) 5 mg DAILY PO ; Start 01/27/18 at 09:00; Stop 08/06 at 10:03; Status DC Aspirin (Ecotrin Ec) 81 mg DAILY PO Last administered on 01/31/18at 08:15; Start 01/27/18 at 09:00; Stop 02/01/18 at 13:29; Status DC Atorvastatin Calcium (Lipitor) 40 mg HS PO Last administered on 02/01/18at 21:57 ; Start 01/26/18 at 21:00 Carvedilol (Coreg) 25 mg BID PO Last administered on 02/01/18at 05:09; Start 07/06 at 21:00; Stop 02/02/18 at 08:28; Status DC Furosemide (Lasix) 40 mg DAILY PO Last administered on 01/31/18at 08:10; Start 01/27/18 at 09:00; Stop 02/02/18 at 08:28; Status DC Hydralazine HCl (Apresoline) 50 mg BID PO Last administered on 01/31/18at 21:16 ; Start 01/26/18 at 21:00; Status Future Hold Losartan Potassium (Cozaar) 100 mg DAILY PO ; Start 01/27/18 at 09:00; Stop 09/05 at 08:28; Status DC Non-Formulary Medication 1 cap HS PO ; Start 01/26/18 at 21:00; Status UNV Dextrose (D50w (Vial) Inj) 50 ml UNSCH PRN IV PUSH HYPOGLYCEMIA-SEE COMMENTS; Start 01/26/18 at 18:45; Stop 02/01/18 at 13:29; Status DC Glucagon (Glucagon Inj) 1 mg UNSCH PRN OTHER HYPOGLYCEMIA-SEE COMMENTS; Start 01/26/18 at 18:45; Stop 02/01/18 at 13:29; Status DC Insulin Human Regular (NovoLIN R SUPPLEMENTAL SCALE) 1 ACHS SLIDING SCALE SQ Last administered on 01/26/18at 21:52; Start 01/26/18 at 21:00; Stop 01/27/18 at 09:06; Status DC Buspirone HCl (Buspar) 7.5 mg DAILY PO Last administered on 02/02/18at 09:11; Start 01/27/18 at 09:00 Buspirone HCl (Buspar) 15 mg HS PO Last administered on 02/01/18at 21:58; Start 01/26/18 at 21:00 Topiramate (Topamax) 50 mg BID PO Last administered on 02/02/18at 09:29; Start 01/26/18 at 21:00 Miscellaneous (Pill Splitter) 1 ea UNSCH PRN OTHER SEE LABEL COMMENTS; Start at 19:15 Heparin Sodium (Porcine) (Heparin Inj) 5,000 units Q8H SQ Last administered on 02/01/18at 00:21; Start 01/27/18 at 00:00; Stop 02/02/18 at 08:25; Status DC Insulin Human Regular (NovoLIN R SUPPLEMENTAL SCALE) 1 ACHS SLIDING SCALE SQ Last administered on 01/31/18at 21:00; Start 01/27/18 at 12:00; Stop 02/01/18 at 13:29; Status DC Fluoxetine HCl (PROzac) 20 mg DAILY PO Last administered on 02/02/18at 09:12; Start 01/27/18 at 10:00 Insulin Human Regular (NovoLIN R INJ) 2 units NOW ONCE SQ Last administered on 01/27/18at 10:02; Start 01/27/18 at 09:45; Stop 01/27/18 at 09:46; Status DC Amlodipine Besylate (Norvasc) 10 mg DAILY PO Last administered on 01/31/18at 08: 11; Start 01/28/18 at 09:00; Status Future Hold Sodium Chloride (NS Flush) 2 ml BID IV FLUSH Last administered on 01/31/18at 21: 17; Start 01/27/18 at 21:00; Stop 02/01/18 at 13:29; Status DC Sodium Chloride (NS Flush) 2 ml UNSCH PRN IV FLUSH FLUSH AFTER USING IV ACCESS ; Start 01/27/18 at 10:15; Stop 02/01/18 at 13:29; Status DC Papaverine HCl 60 mg/Nitroglycerin 100 mcg/Verapamil HCl 100 mg/Sodium Chloride 100 ml @ 0 mls/hr SURGICAL TECHNICIAN IRRIGATION Last administered on 02/01/18at 10:28; Start 01/27/18 at 10:15; Stop 02/02/18 at 08:25; Status DC Vancomycin HCl 1000 mg/Sodium Chloride 1,000 ml @ 0 mls/hr SURGICAL TECHNICIAN IRRIGATION Last administered on 02/01/18at 10:31; Start 01/27/18 at 10:15; Stop 02/02/18 at 08:25; Status DC Vancomycin HCl 1750 mg/Sodium Chloride 517.5 ml @ 258.75 mls/ hr SURGICAL TECHNICIAN IV Last administered on 02/01/18at 08:40; Start 01/27/18 at 10:15; Stop 02/01/18 at 13:29; Status DC Metoprolol Tartrate (Lopressor) 12.5 mg SURGICAL TECHNICIAN PO ; Start 01/27/18 at 10:15; Stop 02/01/18 at 13:29; Status DC Chlorhexidine Gluconate (Hibiclens 4% Top Soln) 1 applic SURGICAL TECHNICIAN TOPICAL Last administered on 02/01/18at 01:10; Start 01/27/18 at 10:15; Stop 02/02/18 at 08:25 ; Status DC Insulin Human Regular 100 units/ Sodium Chloride 100 ml @ 3 mls/hr TITRATE PRN IV for blood glucose control; Start 01/27/18 at 10:15; Stop 02/01/18 at 13:29; Status DC Dextrose (D50w (Vial) Inj) 50 ml UNSCH PRN IV PUSH HYPOGLYCEMIA-SEE COMMENTS; Start 01/27/18 at 10:15; Stop 02/01/18 at 13:29; Status DC Losartan Potassium (Cozaar) 50 mg DAILY PO Last administered on 01/30/18at 07:48 ; Start 01/28/18 at 09:00; Status Future Hold Potassium Chloride (KCl) 30 meq ONCE ONCE PO Last administered on 01/31/18at 10 :35; Start 01/31/18 at 10:15; Stop 01/31/18 at 10:16; Status DC Lactated Ringer's 1,000 ml @ 30 mls/hr Q24H PRN IV SEE LABEL COMMENTS; Start at 05:30; Stop 02/01/18 at 13:08; Status DC Sodium Chloride 500 ml @ 30 mls/hr [id number] PRN IV SEE LABEL COMMENTS; Start at 05:30; Stop 02/01/18 at 13:08; Status DC Povidone Iodine (Betadine 5% Antisepsis Kit) 1 applic SURGICAL TECHNICIAN PRN EACH NARE SEE LABEL COMMENTS; Start 02/01/18 at 05:30; Stop 02/02/18 at 08:25; Status DC Chlorhexidine Gluconate (Chlorhexidine 2% Cloth) 3 pack SURGICAL TECHNICIAN PRN TOPICAL SEE LABEL COMMENTS; Start 02/01/18 at 05:30; Stop 02/02/18 at 08:25; Status DC Heparin Sodium (Porcine) (Heparin Inj) 40,000 units STK-MED ONCE .ROUTE Last administered on 02/01/18at 09:07; Start 02/01/18 at 06:35; Stop 02/01/18 at 06:36 ; Status DC Vancomycin HCl (Vancomycin Inj) 4,000 mg STK-MED ONCE .ROUTE Last administered on 02/01/18at 09:07; Start 02/01/18 at 06:35; Stop 02/01/18 at 06:36; Status DC Vecuronium [place] (Norcuron 20 Mg Inj) 20 mg STK-MED ONCE .ROUTE ; Start at 09:03; Stop 02/02/18 at 08:25; Status DC Vancomycin HCl (Vancomycin Inj) 1,000 mg STK-MED ONCE .ROUTE ; Start 02/01/18 at 09:14; Stop 02/02/18 at 08:25; Status DC Ephedrine Sulfate (ePHEDrine INJ) 200 mg STK-MED ONCE .ROUTE ; Start 02/01/18 at 09:52; Stop 02/02/18 at 08:25; Status DC Glycopyrrolate (Robinul Inj) 1.6 mg STK-MED ONCE .ROUTE ; Start 02/01/18 at 09: 52; Stop 02/02/18 at 08:25; Status DC Potassium Chloride 100 ml @ As Directed STK-MED ONCE .ROUTE ; Start 02/01/18 at 10:18; Stop 02/02/18 at 08:25; Status DC Sodium Chloride (NS Flush) 2 ml BID IV FLUSH Last administered on 02/02/18at 09: 10; Start 02/01/18 at 21:00 Sodium Chloride (NS Flush) 2 ml UNSCH PRN IV FLUSH FLUSH AFTER USING IV ACCESS ; Start 02/01/18 at 12:45 Dexmedetomidine HCl 200 mcg/ Sodium Chloride 52 ml @ 9.43 mls/hr TITRATE PRN IV SEDATION Last administered on 02/02/18at 02:18; Start 02/01/18 at 12:45; Stop 02/02/18 at 08:25; Status DC Nitroglycerin/ Dextrose 250 ml @ 1.5 mls/hr TITRATE PRN IV Maintain BP < 140/ 90 mmHg; Start 02/01/18 at 12:45; Stop 02/02/18 at 08:25; Status DC Dobutamine HCl/ Dextrose 250 ml @ 0 mls/hr Q0M PRN IV Rate change per MD; Start 02/01/18 at 12:43; Stop 02/02/18 at 08:25; Status DC Dopamine HCl/ Dextrose 500 ml @ 20.419 mls/ hr TITRATE PRN IV Maintain MAP > 65 mmHg; Start 02/01/18 at 12:45; Stop 02/02/18 at 08:25; Status DC Phenylephrine HCl 40 mg/Dextrose 500 ml @ 30 mls/hr TITRATE PRN IV Maintain MAP > 65 mmHg; Start 02/01/18 at 12:45; Stop 02/02/18 at 08:25; Status DC Clevidipine 50 ml @ 2 mls/hr TITRATE PRN IV Maintain BP < 140/90 mmHg; Start at 12:45; Stop 02/02/18 at 08:25; Status DC Albumin Human 250 ml @ 250 mls/hr UNSCH PRN IV SEE LABEL COMMENTS Last administered on 02/01/18at 21:00; Start 02/01/18 at 12:45; Stop 02/02/18 at 08:25 ; Status DC Lactated Ringer's 500 ml @ 500 mls/hr Q1H PRN IV SEE LABEL COMMENTS Last administered on 02/02/18at 03:45; Start 02/01/18 at 12:43; Stop 02/02/18 at 08:25 ; Status DC Miscellaneous Information (Misc Post-op Orders (for Pharmacy)) STAT ONCE OTHER ; Start 02/01/18 at 12:45; Stop 02/01/18 at 13:25; Status DC Vancomycin HCl 1750 mg/Sodium Chloride 250 ml @ 250 mls/hr Q12H IV Last administered on 02/01/18at 21:57; Start 02/01/18 at 22:00; Stop 02/02/18 at 22:59 Aspirin (Aspirin Chew) 81 mg DAILY PO Last administered on 02/02/18at 09:29; Start 02/02/18 at 09:00 Clopidogrel Bisulfate (Plavix) 75 mg DAILY PO Last administered on 02/02/18at 09 :28; Start 02/02/18 at 09:00 Pantoprazole Sodium (Protonix) 40 mg DAILY@06 PO Last administered on at 06:00; Start 02/02/18 at 06:00 Amiodarone HCl (Cordarone) 200 mg Q12HR PO Last administered on 02/02/18at 09:29 ; Start 02/01/18 at 21:00 Acetaminophen (Tylenol) 650 mg Q4H PRN PO TEMPERATURE > 101 F; Start 02/01/18 at 12:45 Acetaminophen (Tylenol Supp) 650 mg Q4H PRN RECTAL TEMPERATURE > 101 F; Start 02/01/18 at 12:45; Stop 02/02/18 at 08:25; Status DC Acetaminophen 100 ml @ 400 mls/hr Q6H IV Last administered on 02/02/18at 07:55 ; Start 02/01/18 at 14:00; Stop 02/02/18 at 08:14; Status DC Morphine Sulfate (Morphine Inj) 1 mg Q10M PRN IV PUSH PAIN SCALE 1 TO 5; Start 02/01/18 at 12:45; Stop 02/02/18 at 08:25; Status DC Meperidine HCl (Demerol Inj) 12.5 mg Q4H PRN IV PUSH SEE LABEL COMMENTS; Start 02/01/18 at 12:45 Acetaminophen/ Hydrocodone Bitart ([place] 5-325 Mg) 1 tab Q3H PRN PO PAIN SCALE 1 TO 5; Start 02/01/18 at 12:45 Acetaminophen/ Hydrocodone Bitart ([place] 5-325 Mg) 2 tab Q3H PRN PO PAIN SCALE 6 TO 10 Last administered on 02/02/18at 06:14; Start 02/01/18 at 12:45 Ketorolac Tromethamine (Toradol Inj) 15 mg Q6H PRN IV PUSH SEE LABEL COMMENTS Last administered on 02/01/18at 15:20; Start 02/01/18 at 12:45; Stop 02/03/18 at 12:44 Fentanyl Citrate (fentaNYL INJ) 25 mcg Q1H PRN IV PUSH BREAKTHROUGH PAIN Last administered on 02/02/18at 07:56; Start 02/01/18 at 12:45; Stop 02/02/18 at 08:25 ; Status DC Ondansetron HCl (Zofran Odt) 4 mg Q6H PRN PO NAUSEA OR VOMITING; Start at 12:45 Hydralazine HCl (Apresoline Inj) 10 mg Q4H PRN IV PUSH SEE LABEL COMMENTS; Start 02/01/18 at 12:45; Stop 02/01/18 at 13:30; Status DC Metoprolol Tartrate (Lopressor Inj) 2.5 mg Q1H PRN IV PUSH SEE LABEL COMMENTS; Start 02/01/18 at 12:45; Stop 02/02/18 at 08:25; Status DC Potassium Chloride 100 ml @ 50 mls/hr UNSCH PRN IV SEE LABEL COMMENTS Last administered on 02/01/18at 13:48; Start 02/01/18 at 12:45; Stop 02/01/18 at 13:48 ; Status DC Potassium Chloride 100 ml @ 50 mls/hr UNSCH PRN IV SEE LABEL COMMENTS Last administered on 02/02/18at 04:35; Start 02/01/18 at 12:45; Stop 02/02/18 at 08:25 ; Status DC Potassium Chloride 100 ml @ 50 mls/hr UNSCH PRN IV SEE LABEL COMMENTS; Start 02/01/18 at 12:45; Stop 02/02/18 at 08:25; Status DC Potassium Chloride (KCl) 20 meq UNSCH PRN PO SEE LABEL COMMENTS; Start at 12:45; Stop 02/02/18 at 08:25; Status DC Potassium Chloride (KCl) 40 meq UNSCH PRN PO SEE LABEL COMMENTS; Start at 12:45; Stop 02/02/18 at 08:25; Status DC Magnesium Sulfate 2 gm/Sodium Chloride 104 ml @ 100 mls/hr UNSCH PRN IV SEE LABEL COMMENTS; Start 02/01/18 at 12:45; Stop 02/02/18 at 08:25; Status DC Magnesium Sulfate 2 gm/Sodium Chloride 104 ml @ 50 mls/hr UNSCH PRN IV SEE LABEL COMMENTS Last administered on 02/02/18at 05:11; Start 02/01/18 at 12:45; Stop 02/02/18 at 05:12; Status DC Calcium Chloride 1 gm/Sodium Chloride 110 ml @ 100 mls/hr UNSCH PRN IV SEE LABEL COMMENTS Last administered on 02/01/18at 14:05; Start 02/01/18 at 12:45; Stop 02/02/18 at 08:25; Status DC Calcium Chloride (Calcium Chloride Inj) 0.5 gm UNSCH PRN IV PUSH SEE LABEL COMMENTS; Start 02/01/18 at 12:45; Stop 02/02/18 at 08:25; Status DC Insulin Human Regular 100 units/ Sodium Chloride 100 ml @ 3 mls/hr TITRATE PRN IV for blood glucose control Last administered on 02/01/18at 13:30; Start at 12:45; Stop 02/02/18 at 08:25; Status DC Dextrose (D50w (Vial) Inj) 50 ml UNSCH PRN IV PUSH HYPOGLYCEMIA-SEE COMMENTS; Start 02/01/18 at 12:45; Stop 02/02/18 at 08:39; Status DC Sodium Bicarbonate (Sodium Bicarbonate 8.4% Inj) 50 meq UNSCH PRN IV PUSH SEE LABEL COMMENTS; Start 02/01/18 at 12:45; Stop 02/02/18 at 08:25; Status DC Sodium Bicarbonate (Sodium Bicarbonate 8.4% Inj) 100 meq UNSCH PRN IV PUSH SEE LABEL COMMENTS; Start 02/01/18 at 12:45; Stop 02/02/18 at 08:25; Status DC Albuterol/ Ipratropium (Duoneb Neb) 1 ampule Q6HR NEB NEB Last administered on 02/02/18at 08:50; Start 02/01/18 at 16:00 Albuterol/ Ipratropium (Duoneb Neb) 1 ampule Q2HR NEB PRN NEB WHEEZING; Start 02/01/18 at 12:45 Racepinephrine (Racepinephrine 2.25% Neb) 0.5 ml UNSCH X1 PRN NEB STRIDOR; Start 02/01/18 at 12:45; Stop 02/02/18 at 08:25; Status DC Midazolam HCl (Versed Inj) 10 mg STK-MED ONCE .ROUTE ; Start 02/01/18 at 13:59; Stop 02/02/18 at 08:25; Status DC Midazolam HCl (Versed Inj) 2 mg STK-MED ONCE .ROUTE ; Start 02/01/18 at 13:59; Stop 02/02/18 at 08:25; Status DC Fentanyl Citrate (fentaNYL INJ) 1,000 mcg STK-MED ONCE .ROUTE ; Start 02/01/18 at 13:59; Stop 02/02/18 at 08:25; Status DC Carvedilol (Coreg) 6.25 mg BID PO Last administered on 02/02/18at 09:10; Start 02/02/18 at 09:00 Albuterol/ Ipratropium (Duoneb Neb) 1 ampule Q6HR WHILE AWAKE NEB NEB ; Start 02/02/18 at 14:00; Stop 02/04/18 at 13:59 Docusate Sodium (Colace) 100 mg BID PO Last administered on 02/02/18at 09:09; Start 02/02/18 at 08:30 Multivitamins/ Minerals Therapeutic (Theragran M Tab) 1 tab DAILY PO Last administered on 02/02/18at 09:09; Start 02/02/18 at 09:00 Magnesium Hydroxide (Milk Of Magnesia Liq) 30 ml DAILY PO ; Start 02/02/18 at 09 :00 Bisacodyl (Dulcolax Supp) 10 mg UNSCH PRN RECTAL SEE LABEL COMMENTS; Start at 08:30 Polyethylene Glycol (Miralax) 17 gm DAILY PO ; Start 02/03/18 at 09:00 Sennosides (Senokot) 8.6 mg HS PO ; Start 02/02/18 at 21:00 Sodium Biphosphate/ Sodium Phosphate (Fleets Enema (Adult)) 118 ml UNSCH PRN RECTAL SEE LABEL COMMENTS; Start 02/02/18 at 08:30 Insulin Detemir (Levemir Inj) 10 units ONCE ONCE SQ Last administered on at 08:30; Start 02/02/18 at 08:30; Stop 02/02/18 at 08:40; Status DC Insulin Aspart (NovoLOG SUPPLEMENTAL SCALE) 1 02,06,10,14,18,22 SQ ; Start 02/02 at 10:00; Stop 02/03/18 at 09:59 Dextrose (D50w (Vial) Inj) 50 ml UNSCH PRN IV PUSH HYPOGLYCEMIA-SEE COMMENTS; Start 02/02/18 at 08:30 Glucagon (Glucagon Inj) 1 mg UNSCH PRN OTHER HYPOGLYCEMIA-SEE COMMENTS; Start 02/02/18 at 08:30 Furosemide (Lasix Inj) 40 mg ONCE ONCE IV PUSH Last administered on 02/02/18at 09:10; Start 02/02/18 at 08:30; Stop 02/02/18 at 08:39; Status DC Potassium Chloride (KCl) 20 meq ONCE ONCE PO Last administered on 02/02/18at 09 :09; Start 02/02/18 at 08:30; Stop 02/02/18 at 08:39; Status DC Insulin Aspart (NovoLOG SUPPLEMENTAL SCALE) 1 ACHS SQ ; Start 02/03/18 at 08:00 A/P Assessment and Plan 57-year-old white male who was admitted with multivessel coronary artery disease -Status post unsuccessful PCI; cardiothoracic surgery consultation in progress. sx on -16 CABG.. Of 2 vessels -continue Telemetry, frequent vital signs -Continue aspirin, Coreg and Lipitor -CT chest, carotid ultrasound, lower extremity ultrasounds overall unremarkable , only small pericardial effusion noted on CT chest. Diabetes -on MDSS w BS monitoring. On insulin titration protocol per cardiothoracic surgery is warranted otherwise -diabetic diet in addition to heart healthy -WEAN OFF INSULIN DRIP Stable chronic diastolic CHF - ECHO shows EF of 60-65%, no mention of diastolic dysfunction - continue home Lasix 40 mg daily - continue home losartan and coreg -Monitor intake/output HTN -Continue home Coreg, Norvasc, continue hydralazine, losartan Anxiety - home buspirone and topiramate (restless leg) -home fluoxetine INCENTIVE SPIROMETRY PT AND OT INCREASE ACTIVITY WEAN OFF INSULIN DRIP Discharge Planning Pending cardiovascular surgery clear Steven Costa DO February 02, 2018 09:53
[2018-02-02] MEDS ORDERED: VANCOMYCIN INJ 1,750 MG in SODIUM CHLOR 0.9% 250 ML INJ 250 ML IV SCH (10:00)
[2018-02-02] MEDS: INSULIN ASPART SUPPLEMENTAL SCALE SQ SCH ×4 (10:53→22:01)
[2018-02-02 15:53] LABS: HEMOGLOBIN A1C 6.9 % (4.3-6.0)
[2018-02-02] MEDS ORDERED: CLOP75TA PO (17:11)
[2018-02-02] MEDS: ATORVASTATIN 40 MG TAB PO SCH (20:23)
[2018-02-02] MEDS: SENNOSIDES 8.6 MG TAB PO SCH (20:39)
[2018-02-02] MEDS ORDERED: VANCOMYCIN INJ 1,750 MG in SODIUM CHLORID 0.9% 500 ML INJ 500 ML IV SCH (22:00)
[2018-02-03] VITALS (27 sets, daily range): BP systolic 131–186; BP diastolic 65–87; PULSE 79–111; RESP 16–20; TEMP 98–98.6; O2SAT 94–98
[2018-02-03] MEDS: ACETAMINOPHEN/HYDROcodone 325 MG/5 MG TAB PO PRN ×5 (00:15→20:50)
[2018-02-03] MEDS: RESP: ALBUTEROL 2.5 MG/IPRATROPIUM 0.5 MG NEB (SCH) NEB ×4 (02:56→19:28)
[2018-02-03] MEDS: INSULIN ASPART SUPPLEMENTAL SCALE SQ SCH ×9 (02:58→21:02)
[2018-02-03 04:32] LABS: AUTOMATED NEUTROPHIL # 10.5 TH/MM3 (1.8-7.7); BASOPHIL # 0.1 TH/MM3 (0-0.2); BASOPHIL % 0.5 % (0.0-2.0); EOSINOPHIL # 0.3 TH/MM3 (0-0.4); EOSINOPHIL % 2.4 % (0.0-4.0); HEMATOCRIT 31.1 % (39.0-51.0); HEMOGLOBIN 10.5 GM/DL (13.0-17.0); LYMPHOCYTE # 1.1 TH/MM3 (1.0-4.8); MEAN CELL VOLUME 88.9 FL (80.0-100.0); MEAN CORPUSCULAR HGB CONC 33.7 % (32.0-36.0); MONO % 13.9 % (0.0-8.0); MONOCYTE # 1.9 TH/MM3 (0-0.9); NEUT % 75.2 % (16.0-70.0); PLATELET COUNT 212 TH/MM3 (150-450); RED CELL DISTRIBUTION WIDTH 14.5 % (11.6-17.2); WHITE BLOOD COUNT 13.9 TH/MM3 (4.0-11.0)
[2018-02-03 05:00] LABS: ALBUMIN 3.1 GM/DL (3.4-5.0); ALT (GPT) 46 U/L (12-78); AST (GOT) 61 U/L (15-37); BLOOD UREA NITROGEN 19 MG/DL (7-18); CHLORIDE 107 MEQ/L (98-107); CREATININE 0.96 MG/DL (0.60-1.30); GLOMERULAR FILTRATION RATE 80 ML/MIN (>89); GLUCOSE,RANDOM 166 MG/DL (74-106); MAGNESIUM 1.9 MG/DL (1.5-2.5); PHOSPHORUS 2.4 MG/DL (2.5-4.9); SODIUM (NA) 139 MEQ/L (136-145)
[2018-02-03 05:01] LABS: ALKALINE PHOSPHATASE 80 U/L (45-117); TOTAL BILIRUBIN ADULT 0.7 MG/DL (0.2-1.0); TOTAL PROTEIN 6.3 GM/DL (6.4-8.2)
[2018-02-03] MEDS: PANTOPRAZOLE SOD 40 MG DELAYED RELEASE TAB PO SCH (06:29)
[2018-02-03] MEDS ORDERED: MELATONIN 5 MG TAB PO PRN (09:30)
--- NOTE | 2018-02-03 09:34 | HHI.PR ---
Subjective Remarks Status post emergent CABG 2 Seen postoperatively Has already been extubated Denies any current complaints at this time A.m. labs Discussed with RN and patient 5-17 A-LINE BEING DISCONTINUED WEANING OFF INSULIN DRIP DW RN AND PT AND FAMILY AND [facility] AM LABS INCENTIVE SPIROMETRY PT AND OT 5-18 SEEN IN PCU STILL HAS CHEST TUBE IN PLACE DW RN AND PT AND FAMILY AND CVS INCREASE ACTIVITY AM LABS Objective Vitals Vital Signs Date Time Temp Pulse Resp B/P (MAP) Pulse Ox O2 Delivery O2 Flow Rate FiO2 02/03/18 08:19 96 Nasal Cannula 3.00 02/03/18 07:00 106 02/03/18 05:00 100 02/03/18 04:00 103 02/03/18 03:15 95 Nasal Cannula 3.00 02/03/18 03:15 98.6 107 20 152/79 (103) 95 02/03/18 03:00 111 02/03/18 02:58 96 Nasal Cannula 3.00 02/03/18 02:00 110 02/03/18 01:00 100 02/03/18 00:00 106 02/02/18 23:00 102 02/02/18 23:00 99.2 104 20 153/82 (105) 95 02/02/18 23:00 95 Nasal Cannula 3.00 02/02/18 22:00 102 02/02/18 21:00 106 02/02/18 20:00 95 Nasal Cannula 3.00 02/02/18 20:00 98.3 110 20 174/80 (111) 95 02/02/18 20:00 110 02/02/18 19:00 107 02/02/18 18:00 100 02/02/18 17:00 99 02/02/18 16:00 100 02/02/18 15:00 99.0 96 20 108/77 (87) 93 02/02/18 15:00 107 02/02/18 14:16 99.0 104 20 107/77 (87) 94 02/02/18 14:16 107 02/02/18 14:16 98 Nasal Cannula 3.00 02/02/18 11:00 92 02/02/18 11:00 99.1 92 20 119/75 (90) 91 Arterial Line I/O 02/02/18 02/02/18 02/02/18 02/03/18 02/03/1802/03/18 07:00 15:00 23:00 07:00 15:00 23:00 Intake Total 903 ml 100 ml 960 ml 480 ml Output Total 660 ml 690 ml 1500 ml Balance 243 ml 100 ml 270 ml -1020 ml Intake Oral 720 ml 960 ml 480 ml IV Total 183 ml 100 ml Output Urine Total 340 ml 500 ml 1350 ml Chest Tube Drainage Total 320 ml 190 ml 150 ml # Bowel Movements 0 0 0 Result Diagram: 02/03/1839902/03/18399 Other Results Current Medications Amlodipine Besylate (Norvasc) 5 mg DAILY PO ; Start 01/27/18 at 09:00; Stop 08/06 at 10:03; Status DC Aspirin (Ecotrin Ec) 81 mg DAILY PO Last administered on 01/31/18at 08:15; Start 01/27/18 at 09:00; Stop 02/01/18 at 13:29; Status DC Atorvastatin Calcium (Lipitor) 40 mg HS PO Last administered on 02/02/18at 20:23 ; Start 01/26/18 at 21:00 Carvedilol (Coreg) 25 mg BID PO Last administered on 02/01/18at 05:09; Start 07/06 at 21:00; Stop 02/02/18 at 08:28; Status DC Furosemide (Lasix) 40 mg DAILY PO Last administered on 01/31/18at 08:10; Start 01/27/18 at 09:00; Stop 02/02/18 at 08:28; Status DC Hydralazine HCl (Apresoline) 50 mg BID PO Last administered on 01/31/18at 21:16 ; Start 01/26/18 at 21:00; Status Future Hold Losartan Potassium (Cozaar) 100 mg DAILY PO ; Start 01/27/18 at 09:00; Stop 09/05 at 08:28; Status DC Non-Formulary Medication 1 cap HS PO ; Start 01/26/18 at 21:00; Status UNV Dextrose (D50w (Vial) Inj) 50 ml UNSCH PRN IV PUSH HYPOGLYCEMIA-SEE COMMENTS; Start 01/26/18 at 18:45; Stop 02/01/18 at 13:29; Status DC Glucagon (Glucagon Inj) 1 mg UNSCH PRN OTHER HYPOGLYCEMIA-SEE COMMENTS; Start 01/26/18 at 18:45; Stop 02/01/18 at 13:29; Status DC Insulin Human Regular (NovoLIN R SUPPLEMENTAL SCALE) 1 ACHS SLIDING SCALE SQ Last administered on 01/26/18at 21:52; Start 01/26/18 at 21:00; Stop 01/27/18 at 09:06; Status DC Buspirone HCl (Buspar) 7.5 mg DAILY PO Last administered on 02/02/18at 09:11; Start 01/27/18 at 09:00 Buspirone HCl (Buspar) 15 mg HS PO Last administered on 02/02/18at 20:23; Start 01/26/18 at 21:00 Topiramate (Topamax) 50 mg BID PO Last administered on 02/02/18at 20:23; Start 01/26/18 at 21:00 Miscellaneous (Pill Splitter) 1 ea UNSCH PRN OTHER SEE LABEL COMMENTS; Start at 19:15 Heparin Sodium (Porcine) (Heparin Inj) 5,000 units Q8H SQ Last administered on 02/01/18at 00:21; Start 01/27/18 at 00:00; Stop 02/02/18 at 08:25; Status DC Insulin Human Regular (NovoLIN R SUPPLEMENTAL SCALE) 1 ACHS SLIDING SCALE SQ Last administered on 01/31/18at 21:00; Start 01/27/18 at 12:00; Stop 02/01/18 at 13:29; Status DC Fluoxetine HCl (PROzac) 20 mg DAILY PO Last administered on 02/02/18at 09:12; Start 01/27/18 at 10:00 Insulin Human Regular (NovoLIN R INJ) 2 units NOW ONCE SQ Last administered on 01/27/18at 10:02; Start 01/27/18 at 09:45; Stop 01/27/18 at 09:46; Status DC Amlodipine Besylate (Norvasc) 10 mg DAILY PO Last administered on 01/31/18at 08: 11; Start 01/28/18 at 09:00; Status Future Hold Sodium Chloride (NS Flush) 2 ml BID IV FLUSH Last administered on 01/31/18at 21: 17; Start 01/27/18 at 21:00; Stop 02/01/18 at 13:29; Status DC Sodium Chloride (NS Flush) 2 ml UNSCH PRN IV FLUSH FLUSH AFTER USING IV ACCESS ; Start 01/27/18 at 10:15; Stop 02/01/18 at 13:29; Status DC Papaverine HCl 60 mg/Nitroglycerin 100 mcg/Verapamil HCl 100 mg/Sodium Chloride 100 ml @ 0 mls/hr WIND TURBINE DESIGN ENGINEER IRRIGATION Last administered on 02/01/18at 10:28; Start 01/27/18 at 10:15; Stop 02/02/18 at 08:25; Status DC Vancomycin HCl 1000 mg/Sodium Chloride 1,000 ml @ 0 mls/hr WIND TURBINE DESIGN ENGINEER IRRIGATION Last administered on 02/01/18at 10:31; Start 01/27/18 at 10:15; Stop 02/02/18 at 08:25; Status DC Vancomycin HCl 1750 mg/Sodium Chloride 517.5 ml @ 258.75 mls/ hr WIND TURBINE DESIGN ENGINEER IV Last administered on 02/01/18at 08:40; Start 01/27/18 at 10:15; Stop 02/01/18 at 13:29; Status DC Metoprolol Tartrate (Lopressor) 12.5 mg WIND TURBINE DESIGN ENGINEER PO ; Start 01/27/18 at 10:15; Stop 02/01/18 at 13:29; Status DC Chlorhexidine Gluconate (Hibiclens 4% Top Soln) 1 applic WIND TURBINE DESIGN ENGINEER TOPICAL Last administered on 02/01/18at 01:10; Start 01/27/18 at 10:15; Stop 02/02/18 at 08:25 ; Status DC Insulin Human Regular 100 units/ Sodium Chloride 100 ml @ 3 mls/hr TITRATE PRN IV for blood glucose control; Start 01/27/18 at 10:15; Stop 02/01/18 at 13:29; Status DC Dextrose (D50w (Vial) Inj) 50 ml UNSCH PRN IV PUSH HYPOGLYCEMIA-SEE COMMENTS; Start 01/27/18 at 10:15; Stop 02/01/18 at 13:29; Status DC Losartan Potassium (Cozaar) 50 mg DAILY PO Last administered on 01/30/18at 07:48 ; Start 01/28/18 at 09:00; Status Future Hold Potassium Chloride (KCl) 30 meq ONCE ONCE PO Last administered on 01/31/18at 10 :35; Start 01/31/18 at 10:15; Stop 01/31/18 at 10:16; Status DC Lactated Ringer's 1,000 ml @ 30 mls/hr Q24H PRN IV SEE LABEL COMMENTS; Start at 05:30; Stop 02/01/18 at 13:08; Status DC Sodium Chloride 500 ml @ 30 mls/hr [id number] PRN IV SEE LABEL COMMENTS; Start at 05:30; Stop 02/01/18 at 13:08; Status DC Povidone Iodine (Betadine 5% Antisepsis Kit) 1 applic WIND TURBINE DESIGN ENGINEER PRN EACH NARE SEE LABEL COMMENTS; Start 02/01/18 at 05:30; Stop 02/02/18 at 08:25; Status DC Chlorhexidine Gluconate (Chlorhexidine 2% Cloth) 3 pack WIND TURBINE DESIGN ENGINEER PRN TOPICAL SEE LABEL COMMENTS; Start 02/01/18 at 05:30; Stop 02/02/18 at 08:25; Status DC Heparin Sodium (Porcine) (Heparin Inj) 40,000 units STK-MED ONCE .ROUTE Last administered on 02/01/18at 09:07; Start 02/01/18 at 06:35; Stop 02/01/18 at 06:36 ; Status DC Vancomycin HCl (Vancomycin Inj) 4,000 mg STK-MED ONCE .ROUTE Last administered on 02/01/18at 09:07; Start 02/01/18 at 06:35; Stop 02/01/18 at 06:36; Status DC Vecuronium [place] (Norcuron 20 Mg Inj) 20 mg STK-MED ONCE .ROUTE ; Start at 09:03; Stop 02/02/18 at 08:25; Status DC Vancomycin HCl (Vancomycin Inj) 1,000 mg STK-MED ONCE .ROUTE ; Start 02/01/18 at 09:14; Stop 02/02/18 at 08:25; Status DC Ephedrine Sulfate (ePHEDrine INJ) 200 mg STK-MED ONCE .ROUTE ; Start 02/01/18 at 09:52; Stop 02/02/18 at 08:25; Status DC Glycopyrrolate (Robinul Inj) 1.6 mg STK-MED ONCE .ROUTE ; Start 02/01/18 at 09: 52; Stop 02/02/18 at 08:25; Status DC Potassium Chloride 100 ml @ As Directed STK-MED ONCE .ROUTE ; Start 02/01/18 at 10:18; Stop 02/02/18 at 08:25; Status DC Sodium Chloride (NS Flush) 2 ml BID IV FLUSH Last administered on 02/02/18at 20: 39; Start 02/01/18 at 21:00 Sodium Chloride (NS Flush) 2 ml UNSCH PRN IV FLUSH FLUSH AFTER USING IV ACCESS ; Start 02/01/18 at 12:45 Dexmedetomidine HCl 200 mcg/ Sodium Chloride 52 ml @ 9.43 mls/hr TITRATE PRN IV SEDATION Last administered on 02/02/18at 02:18; Start 02/01/18 at 12:45; Stop 02/02/18 at 08:25; Status DC Nitroglycerin/ Dextrose 250 ml @ 1.5 mls/hr TITRATE PRN IV Maintain BP < 140/ 90 mmHg; Start 02/01/18 at 12:45; Stop 02/02/18 at 08:25; Status DC Dobutamine HCl/ Dextrose 250 ml @ 0 mls/hr Q0M PRN IV Rate change per MD; Start 02/01/18 at 12:43; Stop 02/02/18 at 08:25; Status DC Dopamine HCl/ Dextrose 500 ml @ 20.419 mls/ hr TITRATE PRN IV Maintain MAP > 65 mmHg; Start 02/01/18 at 12:45; Stop 02/02/18 at 08:25; Status DC Phenylephrine HCl 40 mg/Dextrose 500 ml @ 30 mls/hr TITRATE PRN IV Maintain MAP > 65 mmHg; Start 02/01/18 at 12:45; Stop 02/02/18 at 08:25; Status DC Clevidipine 50 ml @ 2 mls/hr TITRATE PRN IV Maintain BP < 140/90 mmHg; Start at 12:45; Stop 02/02/18 at 08:25; Status DC Albumin Human 250 ml @ 250 mls/hr UNSCH PRN IV SEE LABEL COMMENTS Last administered on 02/01/18at 21:00; Start 02/01/18 at 12:45; Stop 02/02/18 at 08:25 ; Status DC Lactated Ringer's 500 ml @ 500 mls/hr Q1H PRN IV SEE LABEL COMMENTS Last administered on 02/02/18at 03:45; Start 02/01/18 at 12:43; Stop 02/02/18 at 08:25 ; Status DC Miscellaneous Information (Misc Post-op Orders (for Pharmacy)) STAT ONCE OTHER ; Start 02/01/18 at 12:45; Stop 02/01/18 at 13:25; Status DC Vancomycin HCl 1750 mg/Sodium Chloride 250 ml @ 250 mls/hr Q12H IV Last administered on 02/01/18at 21:57; Start 02/01/18 at 22:00; Stop 02/02/18 at 10:32 ; Status DC Aspirin (Aspirin Chew) 81 mg DAILY PO Last administered on 02/02/18at 09:29; Start 02/02/18 at 09:00 Clopidogrel Bisulfate (Plavix) 75 mg DAILY PO Last administered on 02/02/18at 09 :28; Start 02/02/18 at 09:00 Pantoprazole Sodium (Protonix) 40 mg DAILY@06 PO Last administered on at 06:29; Start 02/02/18 at 06:00 Amiodarone HCl (Cordarone) 200 mg Q12HR PO Last administered on 02/02/18at 20:23 ; Start 02/01/18 at 21:00 Acetaminophen (Tylenol) 650 mg Q4H PRN PO TEMPERATURE > 101 F; Start 02/01/18 at 12:45 Acetaminophen (Tylenol Supp) 650 mg Q4H PRN RECTAL TEMPERATURE > 101 F; Start 02/01/18 at 12:45; Stop 02/02/18 at 08:25; Status DC Acetaminophen 100 ml @ 400 mls/hr Q6H IV Last administered on 02/02/18at 07:55 ; Start 02/01/18 at 14:00; Stop 02/02/18 at 08:14; Status DC Morphine Sulfate (Morphine Inj) 1 mg Q10M PRN IV PUSH PAIN SCALE 1 TO 5; Start 02/01/18 at 12:45; Stop 02/02/18 at 08:25; Status DC Meperidine HCl (Demerol Inj) 12.5 mg Q4H PRN IV PUSH SEE LABEL COMMENTS; Start 02/01/18 at 12:45 Acetaminophen/ Hydrocodone Bitart ([place] 5-325 Mg) 1 tab Q3H PRN PO PAIN SCALE 1 TO 5; Start 02/01/18 at 12:45 Acetaminophen/ Hydrocodone Bitart ([place] 5-325 Mg) 2 tab Q3H PRN PO PAIN SCALE 6 TO 10 Last administered on 02/03/18at 06:29; Start 02/01/18 at 12:45 Ketorolac Tromethamine (Toradol Inj) 15 mg Q6H PRN IV PUSH SEE LABEL COMMENTS Last administered on 02/01/18at 15:20; Start 02/01/18 at 12:45; Stop 02/03/18 at 12:44 Fentanyl Citrate (fentaNYL INJ) 25 mcg Q1H PRN IV PUSH BREAKTHROUGH PAIN Last administered on 02/02/18at 07:56; Start 02/01/18 at 12:45; Stop 02/02/18 at 08:25 ; Status DC Ondansetron HCl (Zofran Odt) 4 mg Q6H PRN PO NAUSEA OR VOMITING; Start at 12:45 Hydralazine HCl (Apresoline Inj) 10 mg Q4H PRN IV PUSH SEE LABEL COMMENTS; Start 02/01/18 at 12:45; Stop 02/01/18 at 13:30; Status DC Metoprolol Tartrate (Lopressor Inj) 2.5 mg Q1H PRN IV PUSH SEE LABEL COMMENTS; Start 02/01/18 at 12:45; Stop 02/02/18 at 08:25; Status DC Potassium Chloride 100 ml @ 50 mls/hr UNSCH PRN IV SEE LABEL COMMENTS Last administered on 02/01/18at 13:48; Start 02/01/18 at 12:45; Stop 02/01/18 at 13:48 ; Status DC Potassium Chloride 100 ml @ 50 mls/hr UNSCH PRN IV SEE LABEL COMMENTS Last administered on 02/02/18at 04:35; Start 02/01/18 at 12:45; Stop 02/02/18 at 08:25 ; Status DC Potassium Chloride 100 ml @ 50 mls/hr UNSCH PRN IV SEE LABEL COMMENTS; Start 02/01/18 at 12:45; Stop 02/02/18 at 08:25; Status DC Potassium Chloride (KCl) 20 meq UNSCH PRN PO SEE LABEL COMMENTS; Start at 12:45; Stop 02/02/18 at 08:25; Status DC Potassium Chloride (KCl) 40 meq UNSCH PRN PO SEE LABEL COMMENTS; Start at 12:45; Stop 02/02/18 at 08:25; Status DC Magnesium Sulfate 2 gm/Sodium Chloride 104 ml @ 100 mls/hr UNSCH PRN IV SEE LABEL COMMENTS; Start 02/01/18 at 12:45; Stop 02/02/18 at 08:25; Status DC Magnesium Sulfate 2 gm/Sodium Chloride 104 ml @ 50 mls/hr UNSCH PRN IV SEE LABEL COMMENTS Last administered on 02/02/18at 05:11; Start 02/01/18 at 12:45; Stop 02/02/18 at 05:12; Status DC Calcium Chloride 1 gm/Sodium Chloride 110 ml @ 100 mls/hr UNSCH PRN IV SEE LABEL COMMENTS Last administered on 02/01/18at 14:05; Start 02/01/18 at 12:45; Stop 02/02/18 at 08:25; Status DC Calcium Chloride (Calcium Chloride Inj) 0.5 gm UNSCH PRN IV PUSH SEE LABEL COMMENTS; Start 02/01/18 at 12:45; Stop 02/02/18 at 08:25; Status DC Insulin Human Regular 100 units/ Sodium Chloride 100 ml @ 3 mls/hr TITRATE PRN IV for blood glucose control Last administered on 02/01/18at 13:30; Start at 12:45; Stop 02/02/18 at 08:25; Status DC Dextrose (D50w (Vial) Inj) 50 ml UNSCH PRN IV PUSH HYPOGLYCEMIA-SEE COMMENTS; Start 02/01/18 at 12:45; Stop 02/02/18 at 08:39; Status DC Sodium Bicarbonate (Sodium Bicarbonate 8.4% Inj) 50 meq UNSCH PRN IV PUSH SEE LABEL COMMENTS; Start 02/01/18 at 12:45; Stop 02/02/18 at 08:25; Status DC Sodium Bicarbonate (Sodium Bicarbonate 8.4% Inj) 100 meq UNSCH PRN IV PUSH SEE LABEL COMMENTS; Start 02/01/18 at 12:45; Stop 02/02/18 at 08:25; Status DC Albuterol/ Ipratropium (Duoneb Neb) 1 ampule Q6HR NEB NEB Last administered on 02/03/18at 02:56; Start 02/01/18 at 16:00; Stop 02/03/18 at 04:44; Status DC Albuterol/ Ipratropium (Duoneb Neb) 1 ampule Q2HR NEB PRN NEB WHEEZING; Start 02/01/18 at 12:45 Racepinephrine (Racepinephrine 2.25% Neb) 0.5 ml UNSCH X1 PRN NEB STRIDOR; Start 02/01/18 at 12:45; Stop 02/02/18 at 08:25; Status DC Midazolam HCl (Versed Inj) 10 mg STK-MED ONCE .ROUTE ; Start 02/01/18 at 13:59; Stop 02/02/18 at 08:25; Status DC Midazolam HCl (Versed Inj) 2 mg STK-MED ONCE .ROUTE ; Start 02/01/18 at 13:59; Stop 02/02/18 at 08:25; Status DC Fentanyl Citrate (fentaNYL INJ) 1,000 mcg STK-MED ONCE .ROUTE ; Start 02/01/18 at 13:59; Stop 02/02/18 at 08:25; Status DC Carvedilol (Coreg) 6.25 mg BID PO Last administered on 02/02/18at 20:23; Start 02/02/18 at 09:00 Albuterol/ Ipratropium (Duoneb Neb) 1 ampule Q6HR WHILE AWAKE NEB NEB Last administered on 02/03/18at 08:19; Start 02/02/18 at 14:00; Stop 02/04/18 at 13:59 Docusate Sodium (Colace) 100 mg BID PO Last administered on 02/02/18at 20:22; Start 02/02/18 at 08:30 Multivitamins/ Minerals Therapeutic (Theragran M Tab) 1 tab DAILY PO Last administered on 02/02/18at 09:09; Start 02/02/18 at 09:00 Magnesium Hydroxide (Milk Of Magnesia Liq) 30 ml DAILY PO ; Start 02/02/18 at 09 :00 Bisacodyl (Dulcolax Supp) 10 mg UNSCH PRN RECTAL SEE LABEL COMMENTS; Start at 08:30 Polyethylene Glycol (Miralax) 17 gm DAILY PO ; Start 02/03/18 at 09:00 Sennosides (Senokot) 8.6 mg HS PO Last administered on 02/02/18at 20:39; Start 02/02/18 at 21:00 Sodium Biphosphate/ Sodium Phosphate (Fleets Enema (Adult)) 118 ml UNSCH PRN RECTAL SEE LABEL COMMENTS; Start 02/02/18 at 08:30 Insulin Detemir (Levemir Inj) 10 units ONCE ONCE SQ Last administered on at 08:30; Start 02/02/18 at 08:30; Stop 02/02/18 at 08:40; Status DC Insulin Aspart (NovoLOG SUPPLEMENTAL SCALE) 1 02,06,10,14,18,22 SQ Last administered on 02/03/18at 06:29; Start 02/02/18 at 10:00; Stop 02/03/18 at 09:59 Dextrose (D50w (Vial) Inj) 50 ml UNSCH PRN IV PUSH HYPOGLYCEMIA-SEE COMMENTS; Start 02/02/18 at 08:30 Glucagon (Glucagon Inj) 1 mg UNSCH PRN OTHER HYPOGLYCEMIA-SEE COMMENTS; Start 02/02/18 at 08:30 Furosemide (Lasix Inj) 40 mg ONCE ONCE IV PUSH Last administered on 02/02/18at 09:10; Start 02/02/18 at 08:30; Stop 02/02/18 at 08:39; Status DC Potassium Chloride (KCl) 20 meq ONCE ONCE PO Last administered on 02/02/18at 09 :09; Start 02/02/18 at 08:30; Stop 02/02/18 at 08:39; Status DC Insulin Aspart (NovoLOG SUPPLEMENTAL SCALE) 1 ACHS SQ ; Start 02/03/18 at 08:00 Vancomycin HCl 1750 mg/Sodium Chloride 267.5 ml @ 250 mls/hr Q12H IV Last administered on 02/02/18at 10:49; Start 02/02/18 at 10:00; Stop 02/02/18 at 14:55 ; Status DC Vancomycin HCl 1750 mg/Sodium Chloride 517.5 ml @ 250 mls/hr Q12H IV Last administered on 02/02/18at 22:01; Start 02/02/18 at 22:00; Stop 02/03/18 at 00:05 ; Status DC Imaging Last Impressions Chest X-Ray 02/02/18 0500 Signed Impressions: Service Date/Time: January 03:46 - CONCLUSION: No acute cardiopulmonary disease. Guicho Doe Jr., MD Lower Extremity Ultrasound 01/27/18 0000 Signed Impressions: Service Date/Time: Saturday, January 27, 2018 11:46 - CONCLUSION: Venous mapping as above Steven Chen MD FACR Chest CT 01/27/18 0000 Signed Impressions: Service Date/Time: Sunday, January 28, 2018 18:26 - CONCLUSION: 1. No focal or acute intrathoracic disease. 2. Small pericardial effusion. Jhon Elliott MD Carotid Artery Ultrasound 01/27/18 0000 Signed Impressions: Service Date/Time: Saturday, January 27, 2018 10:53 - CONCLUSION: 1. Mild atherosclerotic plaquing at the right carotid bifurcation. Mild to moderate atherosclerotic plaque involving the left common carotid artery and bifurcation. 2. No focal high grade or hemodynamically significant stenosis. John Elliott MD Objective Remarks GENERAL: Awake alert and oriented 3 talkative and cooperative SKIN: Warm and dry. HEAD: Atraumatic. Normocephalic. EYES: Pupils equal and round. No scleral icterus. No injection or drainage. Extraocular muscles intact ENT: No nasal bleeding or discharge. Mucous membranes pink and moist. Tongue is midline NECK: Trachea midline. No JVD. Supple CARDIOVASCULAR: Regular rate and rhythm. S1-S2 no S3 or S4 positive rub chest dressed CHEST TUBES IN PLACE RESPIRATORY: No accessory muscle use. Clear to auscultation. Breath sounds equal bilaterally. Decreased breath sounds bilaterally GASTROINTESTINAL: Abdomen soft, non-tender, nondistended. Hepatic and splenic margins not palpable. Obese MUSCULOSKELETAL: Extremities without clubbing, cyanosis, or edema. No obvious deformities. NEUROLOGICAL: Awake and alert. No obvious cranial nerve deficits. Motor grossly within normal limits. 4 out of 5 muscle strength in the arms and legs. Normal speech. PSYCHIATRIC: Appropriate mood and affect; insight and judgment normal. Procedures Date of Surgery: February 01, 2018 Preoperative Diagnosis: Postoperative Diagnosis: Procedure: 1. Urgent Off-pump Coronary Artery Bypass Grafting x 2 with Left Internal Mammary Artery (SAMUEL) to Left Anterior Descending (LAD), reverse saphenous vein graft to the distal Right Coronary Artery (RCA) 2. Left Leg Endoscopic Vein Glenn 3. Biomet Sternal Plating 4. Intraoperative Vein Mapping. Surgeon: Gay Rico Human Services Worker(s): Caterina Key Operation and Findings: PREPROCEDURE DIAGNOSES 1. Severe Two Vessel Coronary Artery Disease. 2. Morbid Obesity 3. Diabetes mellitus POSTPROCEDURE DIAGNOSES Same SURGICAL PROCEDURE 1. Urgent Off-pump Coronary Artery Bypass Grafting x 2 with Left Internal Mammary Artery (SAMUEL) to Left Anterior Descending (LAD), reverse saphenous vein graft to the distal Right Coronary Artery (RCA) 2. Left Leg Endoscopic Vein Glenn 3. Biomet Sternal Plating 4. Intraoperative Vein Mapping. SURGEON Gay Rico MD BUILDING ILLUMINATING ENGINEER KAYLIN Loja ANESTHESIA General endotracheal DOG SITTER ZAHEER Oneill MD PREPARATION ChloraPrep. COUNTS Needle, sponge, and instrument counts were correct. DRAINS Two 32-Macedonian mediastinal tubes. COMPLICATIONS None. INDICATIONS FOR PROCEDURE The patient is a 57-year-old presenting with chest pain and two-vessel CAD. The patient is being brought to the operating room for surgical revascularization therapy. PROCEDURE Patient was brought to the operating room and placed supine on the OR table. Following the induction of adequate general endotracheal anesthesia and placement of appropriate monitoring devices, intraoperative vein mapping was performed which revealed suitable-caliber conduit in bilateral lower extremities. The patient was then prepped and draped in standard sterile fashion. Next, 2500 units of intravenous heparin was given. The left greater saphenous vein was harvested endoscopically. This appeared to be a useable- caliber conduit. Simultaneously, a median sternotomy was performed and the left internal mammary artery dissected free off the posterior sternal table. The patient was systemically heparinized and anticoagulation monitored by serial ACT measurements. The internal mammary artery had good pulsatile flow in it and was a good-caliber conduit. The pericardium was then divided in the midline , the cradle created and targets analyzed. At this point, all anastomoses were performed in a beating-heart fashion using the Maquet stabilizing system. The left internal mammary artery was anastomosed to the distal LAD (2mm) in an end- to-side fashion using 7-0 Prolene. The LAD upto that point was severely and heavily calcified proximally. Segment of saphenous vein graft was then anastomosed to RCA (2.5 mm) in an end-to-side fashion using 7-0 Prolene. The RCA was also very heavily and diffusely diseased vessel and the anastomosis was performed in an area of soft plaque. The proximal anastomosis was then constructed to the ascending aorta in a running manner using 6-0 Prolene. All anastomotic sites were inspected and appeared to be hemostatic and patent. Protamine solution was given. Strict hemostasis was assured. The closure was undertaken. 2 chest tubes were placed. The pericardium was reapproximated in the midline. The sternum was approximated using 3 sternal wires and 3 Biomet sternal plates. The muscular and fascial layer were then closed in 3 layers. The endoscopic vein harvest site was closed in 2 layers. The patient tolerated the procedure well and was transferred to CVICU in stable condition. Gay Rico MD Medications and IVs Current Medications Amlodipine Besylate (Norvasc) 5 mg DAILY PO ; Start 01/27/18 at 09:00; Stop 08/06 at 10:03; Status DC Aspirin (Ecotrin Ec) 81 mg DAILY PO Last administered on 01/31/18at 08:15; Start 01/27/18 at 09:00; Stop 02/01/18 at 13:29; Status DC Atorvastatin Calcium (Lipitor) 40 mg HS PO Last administered on 02/02/18at 20:23 ; Start 01/26/18 at 21:00 Carvedilol (Coreg) 25 mg BID PO Last administered on 02/01/18at 05:09; Start 07/06 at 21:00; Stop 02/02/18 at 08:28; Status DC Furosemide (Lasix) 40 mg DAILY PO Last administered on 01/31/18at 08:10; Start 01/27/18 at 09:00; Stop 02/02/18 at 08:28; Status DC Hydralazine HCl (Apresoline) 50 mg BID PO Last administered on 01/31/18at 21:16 ; Start 01/26/18 at 21:00; Status Future Hold Losartan Potassium (Cozaar) 100 mg DAILY PO ; Start 01/27/18 at 09:00; Stop 09/05 at 08:28; Status DC Non-Formulary Medication 1 cap HS PO ; Start 01/26/18 at 21:00; Status UNV Dextrose (D50w (Vial) Inj) 50 ml UNSCH PRN IV PUSH HYPOGLYCEMIA-SEE COMMENTS; Start 01/26/18 at 18:45; Stop 02/01/18 at 13:29; Status DC Glucagon (Glucagon Inj) 1 mg UNSCH PRN OTHER HYPOGLYCEMIA-SEE COMMENTS; Start 01/26/18 at 18:45; Stop 02/01/18 at 13:29; Status DC Insulin Human Regular (NovoLIN R SUPPLEMENTAL SCALE) 1 ACHS SLIDING SCALE SQ Last administered on 01/26/18at 21:52; Start 01/26/18 at 21:00; Stop 01/27/18 at 09:06; Status DC Buspirone HCl (Buspar) 7.5 mg DAILY PO Last administered on 02/02/18at 09:11; Start 01/27/18 at 09:00 Buspirone HCl (Buspar) 15 mg HS PO Last administered on 02/02/18at 20:23; Start 01/26/18 at 21:00 Topiramate (Topamax) 50 mg BID PO Last administered on 02/02/18at 20:23; Start 01/26/18 at 21:00 Miscellaneous (Pill Splitter) 1 ea UNSCH PRN OTHER SEE LABEL COMMENTS; Start at 19:15 Heparin Sodium (Porcine) (Heparin Inj) 5,000 units Q8H SQ Last administered on 02/01/18at 00:21; Start 01/27/18 at 00:00; Stop 02/02/18 at 08:25; Status DC Insulin Human Regular (NovoLIN R SUPPLEMENTAL SCALE) 1 ACHS SLIDING SCALE SQ Last administered on 01/31/18at 21:00; Start 01/27/18 at 12:00; Stop 02/01/18 at 13:29; Status DC Fluoxetine HCl (PROzac) 20 mg DAILY PO Last administered on 02/02/18at 09:12; Start 01/27/18 at 10:00 Insulin Human Regular (NovoLIN R INJ) 2 units NOW ONCE SQ Last administered on 01/27/18at 10:02; Start 01/27/18 at 09:45; Stop 01/27/18 at 09:46; Status DC Amlodipine Besylate (Norvasc) 10 mg DAILY PO Last administered on 01/31/18at 08: 11; Start 01/28/18 at 09:00; Status Future Hold Sodium Chloride (NS Flush) 2 ml BID IV FLUSH Last administered on 01/31/18at 21: 17; Start 01/27/18 at 21:00; Stop 02/01/18 at 13:29; Status DC Sodium Chloride (NS Flush) 2 ml UNSCH PRN IV FLUSH FLUSH AFTER USING IV ACCESS ; Start 01/27/18 at 10:15; Stop 02/01/18 at 13:29; Status DC Papaverine HCl 60 mg/Nitroglycerin 100 mcg/Verapamil HCl 100 mg/Sodium Chloride 100 ml @ 0 mls/hr [employer] IRRIGATION Last administered on 02/01/18at 10:28; Start 01/27/18 at 10:15; Stop 02/02/18 at 08:25; Status DC Vancomycin HCl 1000 mg/Sodium Chloride 1,000 ml @ 0 mls/hr [employer] IRRIGATION Last administered on 02/01/18at 10:31; Start 01/27/18 at 10:15; Stop 02/02/18 at 08:25; Status DC Vancomycin HCl 1750 mg/Sodium Chloride 517.5 ml @ 258.75 mls/ hr [employer] IV Last administered on 02/01/18at 08:40; Start 01/27/18 at 10:15; Stop 02/01/18 at 13:29; Status DC Metoprolol Tartrate (Lopressor) 12.5 mg [employer] PO ; Start 01/27/18 at 10:15; Stop 02/01/18 at 13:29; Status DC Chlorhexidine Gluconate (Hibiclens 4% Top Soln) 1 applic [employer] TOPICAL Last administered on 02/01/18at 01:10; Start 01/27/18 at 10:15; Stop 02/02/18 at 08:25 ; Status DC Insulin Human Regular 100 units/ Sodium Chloride 100 ml @ 3 mls/hr TITRATE PRN IV for blood glucose control; Start 01/27/18 at 10:15; Stop 02/01/18 at 13:29; Status DC Dextrose (D50w (Vial) Inj) 50 ml UNSCH PRN IV PUSH HYPOGLYCEMIA-SEE COMMENTS; Start 01/27/18 at 10:15; Stop 02/01/18 at 13:29; Status DC Losartan Potassium (Cozaar) 50 mg DAILY PO Last administered on 01/30/18at 07:48 ; Start 01/28/18 at 09:00; Status Future Hold Potassium Chloride (KCl) 30 meq ONCE ONCE PO Last administered on 01/31/18at 10 :35; Start 01/31/18 at 10:15; Stop 01/31/18 at 10:16; Status DC Lactated Ringer's 1,000 ml @ 30 mls/hr Q24H PRN IV SEE LABEL COMMENTS; Start at 05:30; Stop 02/01/18 at 13:08; Status DC Sodium Chloride 500 ml @ 30 mls/hr [id number] PRN IV SEE LABEL COMMENTS; Start at 05:30; Stop 02/01/18 at 13:08; Status DC Povidone Iodine (Betadine 5% Antisepsis Kit) 1 applic [employer] PRN EACH NARE SEE LABEL COMMENTS; Start 02/01/18 at 05:30; Stop 02/02/18 at 08:25; Status DC Chlorhexidine Gluconate (Chlorhexidine 2% Cloth) 3 pack [employer] PRN TOPICAL SEE LABEL COMMENTS; Start 02/01/18 at 05:30; Stop 02/02/18 at 08:25; Status DC Heparin Sodium (Porcine) (Heparin Inj) 40,000 units STK-MED ONCE .ROUTE Last administered on 02/01/18at 09:07; Start 02/01/18 at 06:35; Stop 02/01/18 at 06:36 ; Status DC Vancomycin HCl (Vancomycin Inj) 4,000 mg STK-MED ONCE .ROUTE Last administered on 02/01/18at 09:07; Start 02/01/18 at 06:35; Stop 02/01/18 at 06:36; Status DC Vecuronium [place] (Norcuron 20 Mg Inj) 20 mg STK-MED ONCE .ROUTE ; Start at 09:03; Stop 02/02/18 at 08:25; Status DC Vancomycin HCl (Vancomycin Inj) 1,000 mg STK-MED ONCE .ROUTE ; Start 02/01/18 at 09:14; Stop 02/02/18 at 08:25; Status DC Ephedrine Sulfate (ePHEDrine INJ) 200 mg STK-MED ONCE .ROUTE ; Start 02/01/18 at 09:52; Stop 02/02/18 at 08:25; Status DC Glycopyrrolate (Robinul Inj) 1.6 mg STK-MED ONCE .ROUTE ; Start 02/01/18 at 09: 52; Stop 02/02/18 at 08:25; Status DC Potassium Chloride 100 ml @ As Directed STK-MED ONCE .ROUTE ; Start 02/01/18 at 10:18; Stop 02/02/18 at 08:25; Status DC Sodium Chloride (NS Flush) 2 ml BID IV FLUSH Last administered on 02/02/18at 20: 39; Start 02/01/18 at 21:00 Sodium Chloride (NS Flush) 2 ml UNSCH PRN IV FLUSH FLUSH AFTER USING IV ACCESS ; Start 02/01/18 at 12:45 Dexmedetomidine HCl 200 mcg/ Sodium Chloride 52 ml @ 9.43 mls/hr TITRATE PRN IV SEDATION Last administered on 02/02/18at 02:18; Start 02/01/18 at 12:45; Stop 02/02/18 at 08:25; Status DC Nitroglycerin/ Dextrose 250 ml @ 1.5 mls/hr TITRATE PRN IV Maintain BP < 140/ 90 mmHg; Start 02/01/18 at 12:45; Stop 02/02/18 at 08:25; Status DC Dobutamine HCl/ Dextrose 250 ml @ 0 mls/hr Q0M PRN IV Rate change per MD; Start 02/01/18 at 12:43; Stop 02/02/18 at 08:25; Status DC Dopamine HCl/ Dextrose 500 ml @ 20.419 mls/ hr TITRATE PRN IV Maintain MAP > 65 mmHg; Start 02/01/18 at 12:45; Stop 02/02/18 at 08:25; Status DC Phenylephrine HCl 40 mg/Dextrose 500 ml @ 30 mls/hr TITRATE PRN IV Maintain MAP > 65 mmHg; Start 02/01/18 at 12:45; Stop 02/02/18 at 08:25; Status DC Clevidipine 50 ml @ 2 mls/hr TITRATE PRN IV Maintain BP < 140/90 mmHg; Start at 12:45; Stop 02/02/18 at 08:25; Status DC Albumin Human 250 ml @ 250 mls/hr UNSCH PRN IV SEE LABEL COMMENTS Last administered on 02/01/18at 21:00; Start 02/01/18 at 12:45; Stop 02/02/18 at 08:25 ; Status DC Lactated Ringer's 500 ml @ 500 mls/hr Q1H PRN IV SEE LABEL COMMENTS Last administered on 02/02/18at 03:45; Start 02/01/18 at 12:43; Stop 02/02/18 at 08:25 ; Status DC Miscellaneous Information (Misc Post-op Orders (for Pharmacy)) STAT ONCE OTHER ; Start 02/01/18 at 12:45; Stop 02/01/18 at 13:25; Status DC Vancomycin HCl 1750 mg/Sodium Chloride 250 ml @ 250 mls/hr Q12H IV Last administered on 02/01/18at 21:57; Start 02/01/18 at 22:00; Stop 02/02/18 at 10:32 ; Status DC Aspirin (Aspirin Chew) 81 mg DAILY PO Last administered on 02/02/18at 09:29; Start 02/02/18 at 09:00 Clopidogrel Bisulfate (Plavix) 75 mg DAILY PO Last administered on 02/02/18at 09 :28; Start 02/02/18 at 09:00 Pantoprazole Sodium (Protonix) 40 mg DAILY@06 PO Last administered on at 06:29; Start 02/02/18 at 06:00 Amiodarone HCl (Cordarone) 200 mg Q12HR PO Last administered on 02/02/18at 20:23 ; Start 02/01/18 at 21:00 Acetaminophen (Tylenol) 650 mg Q4H PRN PO TEMPERATURE > 101 F; Start 02/01/18 at 12:45 Acetaminophen (Tylenol Supp) 650 mg Q4H PRN RECTAL TEMPERATURE > 101 F; Start 02/01/18 at 12:45; Stop 02/02/18 at 08:25; Status DC Acetaminophen 100 ml @ 400 mls/hr Q6H IV Last administered on 02/02/18at 07:55 ; Start 02/01/18 at 14:00; Stop 02/02/18 at 08:14; Status DC Morphine Sulfate (Morphine Inj) 1 mg Q10M PRN IV PUSH PAIN SCALE 1 TO 5; Start 02/01/18 at 12:45; Stop 02/02/18 at 08:25; Status DC Meperidine HCl (Demerol Inj) 12.5 mg Q4H PRN IV PUSH SEE LABEL COMMENTS; Start 02/01/18 at 12:45 Acetaminophen/ Hydrocodone Bitart ([place] 5-325 Mg) 1 tab Q3H PRN PO PAIN SCALE 1 TO 5; Start 02/01/18 at 12:45 Acetaminophen/ Hydrocodone Bitart ([place] 5-325 Mg) 2 tab Q3H PRN PO PAIN SCALE 6 TO 10 Last administered on 02/03/18at 06:29; Start 02/01/18 at 12:45 Ketorolac Tromethamine (Toradol Inj) 15 mg Q6H PRN IV PUSH SEE LABEL COMMENTS Last administered on 02/01/18at 15:20; Start 02/01/18 at 12:45; Stop 02/03/18 at 12:44 Fentanyl Citrate (fentaNYL INJ) 25 mcg Q1H PRN IV PUSH BREAKTHROUGH PAIN Last administered on 02/02/18at 07:56; Start 02/01/18 at 12:45; Stop 02/02/18 at 08:25 ; Status DC Ondansetron HCl (Zofran Odt) 4 mg Q6H PRN PO NAUSEA OR VOMITING; Start at 12:45 Hydralazine HCl (Apresoline Inj) 10 mg Q4H PRN IV PUSH SEE LABEL COMMENTS; Start 02/01/18 at 12:45; Stop 02/01/18 at 13:30; Status DC Metoprolol Tartrate (Lopressor Inj) 2.5 mg Q1H PRN IV PUSH SEE LABEL COMMENTS; Start 02/01/18 at 12:45; Stop 02/02/18 at 08:25; Status DC Potassium Chloride 100 ml @ 50 mls/hr UNSCH PRN IV SEE LABEL COMMENTS Last administered on 02/01/18at 13:48; Start 02/01/18 at 12:45; Stop 02/01/18 at 13:48 ; Status DC Potassium Chloride 100 ml @ 50 mls/hr UNSCH PRN IV SEE LABEL COMMENTS Last administered on 02/02/18at 04:35; Start 02/01/18 at 12:45; Stop 02/02/18 at 08:25 ; Status DC Potassium Chloride 100 ml @ 50 mls/hr UNSCH PRN IV SEE LABEL COMMENTS; Start 02/01/18 at 12:45; Stop 02/02/18 at 08:25; Status DC Potassium Chloride (KCl) 20 meq UNSCH PRN PO SEE LABEL COMMENTS; Start at 12:45; Stop 02/02/18 at 08:25; Status DC Potassium Chloride (KCl) 40 meq UNSCH PRN PO SEE LABEL COMMENTS; Start at 12:45; Stop 02/02/18 at 08:25; Status DC Magnesium Sulfate 2 gm/Sodium Chloride 104 ml @ 100 mls/hr UNSCH PRN IV SEE LABEL COMMENTS; Start 02/01/18 at 12:45; Stop 02/02/18 at 08:25; Status DC Magnesium Sulfate 2 gm/Sodium Chloride 104 ml @ 50 mls/hr UNSCH PRN IV SEE LABEL COMMENTS Last administered on 02/02/18at 05:11; Start 02/01/18 at 12:45; Stop 02/02/18 at 05:12; Status DC Calcium Chloride 1 gm/Sodium Chloride 110 ml @ 100 mls/hr UNSCH PRN IV SEE LABEL COMMENTS Last administered on 02/01/18at 14:05; Start 02/01/18 at 12:45; Stop 02/02/18 at 08:25; Status DC Calcium Chloride (Calcium Chloride Inj) 0.5 gm UNSCH PRN IV PUSH SEE LABEL COMMENTS; Start 02/01/18 at 12:45; Stop 02/02/18 at 08:25; Status DC Insulin Human Regular 100 units/ Sodium Chloride 100 ml @ 3 mls/hr TITRATE PRN IV for blood glucose control Last administered on 02/01/18at 13:30; Start at 12:45; Stop 02/02/18 at 08:25; Status DC Dextrose (D50w (Vial) Inj) 50 ml UNSCH PRN IV PUSH HYPOGLYCEMIA-SEE COMMENTS; Start 02/01/18 at 12:45; Stop 02/02/18 at 08:39; Status DC Sodium Bicarbonate (Sodium Bicarbonate 8.4% Inj) 50 meq UNSCH PRN IV PUSH SEE LABEL COMMENTS; Start 02/01/18 at 12:45; Stop 02/02/18 at 08:25; Status DC Sodium Bicarbonate (Sodium Bicarbonate 8.4% Inj) 100 meq UNSCH PRN IV PUSH SEE LABEL COMMENTS; Start 02/01/18 at 12:45; Stop 02/02/18 at 08:25; Status DC Albuterol/ Ipratropium (Duoneb Neb) 1 ampule Q6HR NEB NEB Last administered on 02/03/18at 02:56; Start 02/01/18 at 16:00; Stop 02/03/18 at 04:44; Status DC Albuterol/ Ipratropium (Duoneb Neb) 1 ampule Q2HR NEB PRN NEB WHEEZING; Start 02/01/18 at 12:45 Racepinephrine (Racepinephrine 2.25% Neb) 0.5 ml UNSCH X1 PRN NEB STRIDOR; Start 02/01/18 at 12:45; Stop 02/02/18 at 08:25; Status DC Midazolam HCl (Versed Inj) 10 mg STK-MED ONCE .ROUTE ; Start 02/01/18 at 13:59; Stop 02/02/18 at 08:25; Status DC Midazolam HCl (Versed Inj) 2 mg STK-MED ONCE .ROUTE ; Start 02/01/18 at 13:59; Stop 02/02/18 at 08:25; Status DC Fentanyl Citrate (fentaNYL INJ) 1,000 mcg STK-MED ONCE .ROUTE ; Start 02/01/18 at 13:59; Stop 02/02/18 at 08:25; Status DC Carvedilol (Coreg) 6.25 mg BID PO Last administered on 02/02/18at 20:23; Start 02/02/18 at 09:00 Albuterol/ Ipratropium (Duoneb Neb) 1 ampule Q6HR WHILE AWAKE NEB NEB Last administered on 02/03/18at 08:19; Start 02/02/18 at 14:00; Stop 02/04/18 at 13:59 Docusate Sodium (Colace) 100 mg BID PO Last administered on 02/02/18at 20:22; Start 02/02/18 at 08:30 Multivitamins/ Minerals Therapeutic (Theragran M Tab) 1 tab DAILY PO Last administered on 02/02/18at 09:09; Start 02/02/18 at 09:00 Magnesium Hydroxide (Milk Of Magnesia Liq) 30 ml DAILY PO ; Start 02/02/18 at 09 :00 Bisacodyl (Dulcolax Supp) 10 mg UNSCH PRN RECTAL SEE LABEL COMMENTS; Start at 08:30 Polyethylene Glycol (Miralax) 17 gm DAILY PO ; Start 02/03/18 at 09:00 Sennosides (Senokot) 8.6 mg HS PO Last administered on 02/02/18at 20:39; Start 02/02/18 at 21:00 Sodium Biphosphate/ Sodium Phosphate (Fleets Enema (Adult)) 118 ml UNSCH PRN RECTAL SEE LABEL COMMENTS; Start 02/02/18 at 08:30 Insulin Detemir (Levemir Inj) 10 units ONCE ONCE SQ Last administered on at 08:30; Start 02/02/18 at 08:30; Stop 02/02/18 at 08:40; Status DC Insulin Aspart (NovoLOG SUPPLEMENTAL SCALE) 1 02,06,10,14,18,22 SQ Last administered on 02/03/18at 06:29; Start 02/02/18 at 10:00; Stop 02/03/18 at 09:59 Dextrose (D50w (Vial) Inj) 50 ml UNSCH PRN IV PUSH HYPOGLYCEMIA-SEE COMMENTS; Start 02/02/18 at 08:30 Glucagon (Glucagon Inj) 1 mg UNSCH PRN OTHER HYPOGLYCEMIA-SEE COMMENTS; Start 02/02/18 at 08:30 Furosemide (Lasix Inj) 40 mg ONCE ONCE IV PUSH Last administered on 02/02/18at 09:10; Start 02/02/18 at 08:30; Stop 02/02/18 at 08:39; Status DC Potassium Chloride (KCl) 20 meq ONCE ONCE PO Last administered on 02/02/18at 09 :09; Start 02/02/18 at 08:30; Stop 02/02/18 at 08:39; Status DC Insulin Aspart (NovoLOG SUPPLEMENTAL SCALE) 1 ACHS SQ ; Start 02/03/18 at 08:00 Vancomycin HCl 1750 mg/Sodium Chloride 267.5 ml @ 250 mls/hr Q12H IV Last administered on 02/02/18at 10:49; Start 02/02/18 at 10:00; Stop 02/02/18 at 14:55 ; Status DC Vancomycin HCl 1750 mg/Sodium Chloride 517.5 ml @ 250 mls/hr Q12H IV Last administered on 02/02/18at 22:01; Start 02/02/18 at 22:00; Stop 02/03/18 at 00:05 ; Status DC A/P Assessment and Plan 57-year-old white male who was admitted with multivessel coronary artery disease -Status post unsuccessful PCI; cardiothoracic surgery consultation in progress. sx on 02-01 CABG.. Of 2 vessels -continue Telemetry, frequent vital signs -Continue aspirin, Coreg and Lipitor -CT chest, carotid ultrasound, lower extremity ultrasounds overall unremarkable , only small pericardial effusion noted on CT chest. Diabetes -on MDSS w BS monitoring. On insulin titration protocol per cardiothoracic surgery is warranted otherwise -diabetic diet in addition to heart healthy -WEAN OFF INSULIN DRIP Stable chronic diastolic CHF - ECHO shows EF of 60-65%, no mention of diastolic dysfunction - continue home Lasix 40 mg daily - continue home losartan and CHANGE TO METOPROLOL -Monitor intake/output HTN -Continue home METOPROLOL, , MEDS BEING ADJUSTED Anxiety - home buspirone and topiramate (restless leg) -home fluoxetine INCENTIVE SPIROMETRY PT AND OT INCREASE ACTIVITY AM LABS OUT OF ICU DW CARDIOVASCULAR SURGERY Discharge Planning Pending cardiovascular surgery Steven Mathis DO February 03, 2018 09:34
[2018-02-03] MEDS ORDERED: FUROSEMIDE 40 MG/4 ML VIAL IV PUSH ONE (09:45)
[2018-02-03] MEDS ORDERED: POTASSIUM CHLORIDE 10 MEQ CONTROLLED RELEASE TAB PO ONE (09:45)
[2018-02-03] MEDS: POLYETHYLENE GLYCOL 17 GM PKG PO SCH (10:14)
[2018-02-03] MEDS: MAGNESIUM HYDROXIDE SUSP 30 ML CUP PO SCH (10:14)
[2018-02-03] MEDS: busPIRone HCL 5 MG TAB PO SCH ×2 (10:15→20:49)
[2018-02-03] MEDS: DOCUSATE SODIUM 100 MG CAP PO SCH ×2 (10:16→20:49)
[2018-02-03] MEDS: CLOPIDOGREL 75 MG TAB PO SCH (10:16)
[2018-02-03] MEDS: AMIODARONE 200 MG TAB PO SCH ×2 (10:17→20:51)
[2018-02-03] MEDS: FLUoxetine HCL 20 MG CAP PO SCH (10:17)
[2018-02-03] MEDS: ASPIRIN 81 MG CHEW TAB PO SCH (10:17)
[2018-02-03] MEDS: MULTIVITAMINS/MINERALS THERAPEUTIC TAB PO SCH (10:17)
[2018-02-03] MEDS: SODIUM CHLORIDE 0.9% FLUSH 10 ML FLUSH IV FLUSH SCH ×2 (10:17→20:51)
[2018-02-03] MEDS: TOPIRAMATE 25 MG TAB PO SCH ×2 (10:17→20:45)
[2018-02-03] MEDS: METOPROLOL TARTRATE 50 MG TAB PO SCH ×2 (10:23→21:00)
--- NOTE | 2018-02-03 11:51 | EKG ---
Date Performed: 02/02/2018 Time Performed: 05:01:36 PTAGE: 57 years EKG: Sinus rhythm Possible left anterior fascicular block Borderline ECG NO PREVIOUS TRACING DOCTOR: Umesh Ospina Interpretating Date/Time 02/03/2018 11:48:16
[2018-02-03] MEDS ORDERED: COMMODE 3-IN-11 MIS (15:15)
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
[2018-02-03] MEDS ORDERED: WALKER WHEELS/F1 MIS (15:26)
--- NOTE | 2018-02-03 16:02 | RADRPT ---
EXAM DATE/TIME: 02/03/2018 15:25 [place] COMPARISON: No previous studies available for comparison. INDICATIONS : Post chest tube removal. MEDICAL HISTORY : Cardiovascular disease. Hypertension. Diabetes mellitus type 2. Renal stones SURGICAL HISTORY : CABG. Appendectomy. Total knee replacement, left.Total knee replacement, right. ENCOUNTER: Subsequent ACUITY: 4 - 6 days PAIN SCORE: 0/10 LOCATION: Bilateral chest FINDINGS: Cardiomegaly and sternotomy wires are noted. EKG leads overlie the chest. Left-sided subclavian centr al venous catheter is present. Lungs are clear. CONCLUSION: Clear lungs. Kavon Murguia MD on February 03, 2018 at 16:00 Board Certified Radiologist. This report was verified electronically.
[2018-02-03] MEDS: FUROSEMIDE 40 MG/4 ML VIAL IV PUSH SCH (17:49)
[2018-02-03] MEDS: metFORMIN HCL 500 MG TAB PO SCH (17:50)
[2018-02-03] MEDS: POTASSIUM CHLORIDE 20 MEQ CONTROLLED RELEASE TAB PO SCH (17:50)
[2018-02-03] MEDS: SENNOSIDES 8.6 MG TAB PO SCH (20:50)
[2018-02-03] MEDS: ATORVASTATIN 40 MG TAB PO SCH (20:51)
[2018-02-04] VITALS (20 sets, daily range): BP systolic 116–128; BP diastolic 48–64; PULSE 74–91; RESP 16–18; TEMP 97.8–98.6; O2SAT 92–98
[2018-02-04] MEDS: ACETAMINOPHEN/HYDROcodone 325 MG/5 MG TAB PO PRN ×2 (00:52→06:26)
[2018-02-04 05:02] LABS: AUTOMATED NEUTROPHIL # 6.9 TH/MM3 (1.8-7.7); BASOPHIL # 0.1 TH/MM3 (0-0.2); BASOPHIL % 0.6 % (0.0-2.0); EOSINOPHIL # 0.4 TH/MM3 (0-0.4); EOSINOPHIL % 3.3 % (0.0-4.0); HEMATOCRIT 28.1 % (39.0-51.0); HEMOGLOBIN 9.5 GM/DL (13.0-17.0); LYMPH % 19.4 % (9.0-44.0); LYMPHOCYTE # 2.1 TH/MM3 (1.0-4.8); MEAN CELL VOLUME 88.6 FL (80.0-100.0); MEAN CORPUSCULAR HEMOGLOBIN 30.1 PG (27.0-34.0); MEAN PLATELET VOLUME 8.8 FL (7.0-11.0); MONOCYTE # 1.4 TH/MM3 (0-0.9); NEUT % 63.7 % (16.0-70.0); PLATELET COUNT 206 TH/MM3 (150-450); RED BLOOD COUNT 3.17 MIL/MM3 (4.50-5.90); RED CELL DISTRIBUTION WIDTH 14.5 % (11.6-17.2); WHITE BLOOD COUNT 10.8 TH/MM3 (4.0-11.0)
[2018-02-04 05:17] LABS: ALBUMIN 2.6 GM/DL (3.4-5.0); ALT (GPT) 33 U/L (12-78); AST (GOT) 32 U/L (15-37); BICARBONATE 28.1 MEQ/L (21.0-32.0); BLOOD UREA NITROGEN 17 MG/DL (7-18); CHLORIDE 107 MEQ/L (98-107); GLOMERULAR FILTRATION RATE 99 ML/MIN (>89); GLUCOSE,RANDOM 121 MG/DL (74-106); MAGNESIUM 1.9 MG/DL (1.5-2.5); SODIUM (NA) 142 MEQ/L (136-145)
[2018-02-04 05:19] LABS: ALKALINE PHOSPHATASE 70 U/L (45-117); TOTAL BILIRUBIN ADULT 0.4 MG/DL (0.2-1.0); TOTAL PROTEIN 5.7 GM/DL (6.4-8.2)
[2018-02-04] MEDS: POTASSIUM CHLORIDE 20 MEQ CONTROLLED RELEASE TAB PO SCH ×2 (06:25→16:16)
[2018-02-04] MEDS: PANTOPRAZOLE SOD 40 MG DELAYED RELEASE TAB PO SCH (06:25)
[2018-02-04] MEDS: INSULIN ASPART SUPPLEMENTAL SCALE SQ SCH ×3 (08:00→16:21)
[2018-02-04] MEDS: RESP: ALBUTEROL 2.5 MG/IPRATROPIUM 0.5 MG NEB (SCH) NEB (08:12)
[2018-02-04] MEDS: MULTIVITAMINS/MINERALS THERAPEUTIC TAB PO SCH (09:00)
[2018-02-04] MEDS: TOPIRAMATE 25 MG TAB PO SCH (09:00)
[2018-02-04] MEDS: CLOPIDOGREL 75 MG TAB PO SCH (09:00)
[2018-02-04] MEDS: FLUoxetine HCL 20 MG CAP PO SCH (09:00)
[2018-02-04] MEDS: LOSARTAN 50 MG TAB PO SCH (09:00)
[2018-02-04] MEDS: metFORMIN HCL 500 MG TAB PO SCH ×2 (09:00→16:17)
[2018-02-04] MEDS: METOPROLOL TARTRATE 50 MG TAB PO SCH (09:00)
[2018-02-04] MEDS: busPIRone HCL 5 MG TAB PO SCH (09:00)
[2018-02-04] MEDS: ASPIRIN 81 MG CHEW TAB PO SCH (09:00)
[2018-02-04] MEDS: MAGNESIUM HYDROXIDE SUSP 30 ML CUP PO SCH (09:00)
[2018-02-04] MEDS: POLYETHYLENE GLYCOL 17 GM PKG PO SCH (09:00)
[2018-02-04] MEDS: AMIODARONE 200 MG TAB PO SCH (09:00)
[2018-02-04] MEDS: DOCUSATE SODIUM 100 MG CAP PO SCH (09:00)
[2018-02-04] MEDS: FUROSEMIDE 40 MG/4 ML VIAL IV PUSH SCH ×2 (09:00→16:17)
--- NOTE | 2018-02-04 09:40 | HHI.PR ---
Subjective Remarks Status post emergent CABG 2 Seen postoperatively Has already been extubated Denies any current complaints at this time A.m. labs Discussed with RN and patient 5-17 A-LINE BEING DISCONTINUED WEANING OFF INSULIN DRIP DW RN AND PT AND FAMILY AND [facility] AM LABS INCENTIVE SPIROMETRY PT AND OT - SEEN IN PCU STILL HAS CHEST TUBE IN PLACE DW RN AND PT AND FAMILY AND [facility] INCREASE ACTIVITY AM LABS 02-04 CHEST TUBES ARE OUT AMBULATING WELL WITH PT MAY NEED OXYGEN IF FAILS WALK TEST DW RN AND PT AND FAMILY BLOOD PRESSURE IS STABLE DC HOME TODAY IF PASSES WALK TEST Objective Vitals Vital Signs Date Time Temp Pulse Resp B/P (MAP) Pulse Ox O2 Delivery O2 Flow Rate FiO2 02/04/18 08:14 98 Nasal Cannula 3.00 02/04/18 06:00 75 02/04/18 05:00 81 02/04/18 04:00 98.6 82 16 128/64 (85) 97 02/04/18 04:00 80 02/04/18 03:39 98 Nasal Cannula 3.00 02/04/18 03:00 91 02/04/18 02:00 80 02/04/18 01:00 82 02/04/18 00:00 98.4 81 16 117/64 (81) 96 02/04/18 00:00 80 02/03/18 23:19 94 Nasal Cannula 3.00 02/03/18 23:00 91 02/03/18 22:00 90 02/03/18 21:00 100 02/03/18 20:00 96 Nasal Cannula 3.00 02/03/18 20:00 98.4 93 16 186/87 (120) 96 02/03/18 20:00 100 02/03/18 19:28 98 Nasal Cannula 3.00 02/03/18 19:00 94 02/03/18 18:00 95 02/03/18 17:00 89 02/03/18 16:00 81 02/03/18 15:00 98.0 87 18 131/65 (87) 94 02/03/18 15:00 94 Nasal Cannula 3.00 02/03/18 15:00 79 02/03/18 14:00 86 02/03/18 13:00 88 02/03/18 12:00 100 02/03/18 11:00 110 02/03/18 11:00 98.2 97 18 143/75 (97) 96 02/03/18 11:00 96 Nasal Cannula 3.00 02/03/18 10:00 109 I/O 02/03/18 02/03/18 02/03/18 02/04/18 02/04/18 02/04/18 07:00 15:00 23:00 07:00 15:00 23:00 Intake Total 480 ml 1985.0 ml 480 ml Output Total 1500 ml 1995 ml 1400 ml Balance -1020 ml -10.0 ml -920 ml Intake Oral 480 ml 1200 ml 480 ml IV Total 785.0 ml Output Urine Total 1350 ml 1865 ml 1400 ml Chest Tube Drainage Total 150 ml 130 ml # Bowel Movements 0 0 Result Diagram: 02/04/18 0431 02/04/18 0431 Other Results Laboratory Tests Test 02/02/18 03:28 02/03/18 04:00 02/04/18 04:31 White Blood Count 13.3 TH/MM3 13.9 TH/MM3 10.8 TH/MM3 Red Blood Count 3.30 MIL/MM3 3.50 MIL/MM3 3.17 MIL/MM3 Hemoglobin 9.8 GM/DL 10.5 GM/DL 9.5 GM/DL Hematocrit 29.5 % 31.1 % 28.1 % Mean Corpuscular Volume 89.5 FL 88.9 FL 88.6 FL Mean Corpuscular Hemoglobin 29.6 PG 30.0 PG 30.1 PG Mean Corpuscular Hemoglobin Concent 33.1 % 33.7 % 34.0 % Red Cell Distribution Width 14.5 % 14.5 % 14.5 % Platelet Count 209 TH/MM3 212 TH/MM3 206 TH/MM3 Mean Platelet Volume 8.9 FL 9.0 FL 8.8 FL Neutrophils (%) (Auto) 91.3 % 75.2 % 63.7 % Lymphocytes (%) (Auto) 1.0 % 8.0 % 19.4 % Monocytes (%) (Auto) 6.7 % 13.9 % 13.0 % Eosinophils (%) (Auto) 0.6 % 2.4 % 3.3 % Basophils (%) (Auto) 0.4 % 0.5 % 0.6 % Neutrophils # (Auto) 12.1 TH/MM3 10.5 TH/MM3 6.9 TH/MM3 Lymphocytes # (Auto) 0.1 TH/MM3 1.1 TH/MM3 2.1 TH/MM3 Monocytes # (Auto) 0.9 TH/MM3 1.9 TH/MM3 1.4 TH/MM3 Eosinophils # (Auto) 0.1 TH/MM3 0.3 TH/MM3 0.4 TH/MM3 Basophils # (Auto) 0.1 TH/MM3 0.1 TH/MM3 0.1 TH/MM3 CBC Comment DIFF FINAL DIFF FINAL DIFF FINAL Differential Comment Blood Urea Nitrogen 17 MG/DL 19 MG/DL 17 MG/DL Creatinine 0.95 MG/DL 0.96 MG/DL 0.80 MG/DL Random Glucose 129 MG/DL 166 MG/DL 121 MG/DL Total Protein 5.5 GM/DL 6.3 GM/DL 5.7 GM/DL Albumin 2.9 GM/DL 3.1 GM/DL 2.6 GM/DL Calcium Level 7.8 MG/DL 8.0 MG/DL 8.0 MG/DL Phosphorus Level 2.6 MG/DL 2.4 MG/DL 3.0 MG/DL Magnesium Level 1.9 MG/DL 1.9 MG/DL 1.9 MG/DL Alkaline Phosphatase 72 U/L 80 U/L 70 U/L Aspartate Amino Transf (AST/SGOT) 34 U/L 61 U/L 32 U/L Alanine Aminotransferase (ALT/SGPT) 41 U/L 46 U/L 33 U/L Total Bilirubin 0.6 MG/DL 0.7 MG/DL 0.4 MG/DL Sodium Level 142 MEQ/L 139 MEQ/L 142 MEQ/L Potassium Level 3.9 MEQ/L 3.8 MEQ/L 4.1 MEQ/L Chloride Level 110 MEQ/L 107 MEQ/L 107 MEQ/L Carbon Dioxide Level 26.5 MEQ/L 23.0 MEQ/L 28.1 MEQ/L Anion Gap 6 MEQ/L 9 MEQ/L 7 MEQ/L Estimat Glomerular Filtration Rate 81 ML/MIN 80 ML/MIN 99 ML/MIN Hemoglobin A1c 6.9 % Free Thyroxine 1.09 NG/DL Thyroid Stimulating Hormone 3rd Gen 0.491 uIU/ML Imaging Last Impressions Chest X-Ray 02/03/18 0000 Signed Impressions: Service Date/Time: Saturday, February 03, 2018 15:25 - CONCLUSION: Clear lungs. Kavon Murguia MD Lower Extremity Ultrasound 5/11/18 0000 Signed Impressions: Service Date/Time: Saturday, January 27, 2018 11:46 - CONCLUSION: Venous mapping as above Steven Chen MD FACR Chest CT 01/27/18 0000 Signed Impressions: Service Date/Time: Sunday, January 28, 2018 18:26 - CONCLUSION: 1. No focal or acute intrathoracic disease. 2. Small pericardial effusion. John Elliott MD Carotid Artery Ultrasound 01/27/18 0000 Signed Impressions: Service Date/Time: Saturday, January 27, 2018 10:53 - CONCLUSION: 1. Mild atherosclerotic plaquing at the right carotid bifurcation. Mild to moderate atherosclerotic plaque involving the left common carotid artery and bifurcation. 2. No focal high grade or hemodynamically significant stenosis. John Elliott MD Objective Remarks GENERAL: Awake alert and oriented 3 talkative and cooperative SKIN: Warm and dry. HEAD: Atraumatic. Normocephalic. EYES: Pupils equal and round. No scleral icterus. No injection or drainage. Extraocular muscles intact ENT: No nasal bleeding or discharge. Mucous membranes pink and moist. Tongue is midline NECK: Trachea midline. No JVD. Supple CARDIOVASCULAR: Regular rate and rhythm. S1-S2 no S3 or S4 positive rub chest dressed CHEST TUBES IN PLACE RESPIRATORY: No accessory muscle use. Clear to auscultation. Breath sounds equal bilaterally. Decreased breath sounds bilaterally GASTROINTESTINAL: Abdomen soft, non-tender, nondistended. Hepatic and splenic margins not palpable. Obese MUSCULOSKELETAL: Extremities without clubbing, cyanosis, or edema. No obvious deformities. NEUROLOGICAL: Awake and alert. No obvious cranial nerve deficits. Motor grossly within normal limits. 4 out of 5 muscle strength in the arms and legs. Normal speech. PSYCHIATRIC: Appropriate mood and affect; insight and judgment normal. Procedures Date of Surgery: February 01, 2018 Preoperative Diagnosis: Postoperative Diagnosis: Procedure: 1. Urgent Off-pump Coronary Artery Bypass Grafting x 2 with Left Internal Mammary Artery (SAMUEL) to Left Anterior Descending (LAD), reverse saphenous vein graft to the distal Right Coronary Artery (RCA) 2. Left Leg Endoscopic Vein [place] 3. Biomet Sternal Plating 4. Intraoperative Vein Mapping. Surgeon: Gay Rico Press Setter(s): Caterina Key Operation and Findings: PREPROCEDURE DIAGNOSES 1. Severe Two Vessel Coronary Artery Disease. 2. Morbid Obesity 3. Diabetes mellitus POSTPROCEDURE DIAGNOSES Same SURGICAL PROCEDURE 1. Urgent Off-pump Coronary Artery Bypass Grafting x 2 with Left Internal Mammary Artery (SAMUEL) to Left Anterior Descending (LAD), reverse saphenous vein graft to the distal Right Coronary Artery (RCA) 2. Left Leg Endoscopic Vein [place] 3. Biomet Sternal Plating 4. Intraoperative Vein Mapping. SURGEON Gay Rico MD INSTRUMENT PANEL ASSEMBLER KAYLIN Loja ANESTHESIA General endotracheal REEL WORKER ZAHEER Oneill MD PREPARATION ChloraPrep. COUNTS Needle, sponge, and instrument counts were correct. DRAINS Two 32-[place] mediastinal tubes. COMPLICATIONS None. INDICATIONS FOR PROCEDURE The patient is a 57-year-old presenting with chest pain and two-vessel CAD. The patient is being brought to the operating room for surgical revascularization therapy. PROCEDURE Patient was brought to the operating room and placed supine on the OR table. Following the induction of adequate general endotracheal anesthesia and placement of appropriate monitoring devices, intraoperative vein mapping was performed which revealed suitable-caliber conduit in bilateral lower extremities. The patient was then prepped and draped in standard sterile fashion. Next, 2500 units of intravenous heparin was given. The left greater saphenous vein was harvested endoscopically. This appeared to be a useable- caliber conduit. Simultaneously, a median sternotomy was performed and the left internal mammary artery dissected free off the posterior sternal table. The patient was systemically heparinized and anticoagulation monitored by serial ACT measurements. The internal mammary artery had good pulsatile flow in it and was a good-caliber conduit. The pericardium was then divided in the midline , the cradle created and targets analyzed. At this point, all anastomoses were performed in a beating-heart fashion using the Maquet stabilizing system. The left internal mammary artery was anastomosed to the distal LAD (2mm) in an end- to-side fashion using 7-0 Prolene. The LAD upto that point was severely and heavily calcified proximally. Segment of saphenous vein graft was then anastomosed to RCA (2.5 mm) in an end-to-side fashion using 7-0 Prolene. The RCA was also very heavily and diffusely diseased vessel and the anastomosis was performed in an area of soft plaque. The proximal anastomosis was then constructed to the ascending aorta in a running manner using 6-0 Prolene. All anastomotic sites were inspected and appeared to be hemostatic and patent. Protamine solution was given. Strict hemostasis was assured. The closure was undertaken. 2 chest tubes were placed. The pericardium was reapproximated in the midline. The sternum was approximated using 3 sternal wires and 3 Biomet sternal plates. The muscular and fascial layer were then closed in 3 layers. The endoscopic vein harvest site was closed in 2 layers. The patient tolerated the procedure well and was transferred to CVICU in stable condition. Gay Rico MD Medications and IVs Current Medications Amlodipine Besylate (Norvasc) 5 mg DAILY PO ; Start 01/27/18 at 09:00; Stop 08/06 at 10:03; Status DC Aspirin (Ecotrin Ec) 81 mg DAILY PO Last administered on 01/31/18at 08:15; Start 01/27/18 at 09:00; Stop 02/01/18 at 13:29; Status DC Atorvastatin Calcium (Lipitor) 40 mg HS PO Last administered on 02/03/18at 20:51 ; Start 01/26/18 at 21:00 Carvedilol (Coreg) 25 mg BID PO Last administered on 02/01/18at 05:09; Start 07/06 at 21:00; Stop 02/02/18 at 08:28; Status DC Furosemide (Lasix) 40 mg DAILY PO Last administered on 01/31/18at 08:10; Start 01/27/18 at 09:00; Stop 02/02/18 at 08:28; Status DC Hydralazine HCl (Apresoline) 50 mg BID PO Last administered on 01/31/18at 21:16 ; Start 01/26/18 at 21:00; Status Future Hold Losartan Potassium (Cozaar) 100 mg DAILY PO ; Start 01/27/18 at 09:00; Stop 09/05 at 08:28; Status DC Non-Formulary Medication 1 cap HS PO ; Start 01/26/18 at 21:00; Status UNV Dextrose (D50w (Vial) Inj) 50 ml UNSCH PRN IV PUSH HYPOGLYCEMIA-SEE COMMENTS; Start 01/26/18 at 18:45; Stop 02/01/18 at 13:29; Status DC Glucagon (Glucagon Inj) 1 mg UNSCH PRN OTHER HYPOGLYCEMIA-SEE COMMENTS; Start 01/26/18 at 18:45; Stop 02/01/18 at 13:29; Status DC Insulin Human Regular (NovoLIN R SUPPLEMENTAL SCALE) 1 ACHS SLIDING SCALE SQ Last administered on 01/26/18at 21:52; Start 01/26/18 at 21:00; Stop 01/27/18 at 09:06; Status DC Buspirone HCl (Buspar) 7.5 mg DAILY PO Last administered on 02/03/18at 10:15; Start 01/27/18 at 09:00 Buspirone HCl (Buspar) 15 mg HS PO Last administered on 02/03/18at 20:49; Start 01/26/18 at 21:00 Topiramate (Topamax) 50 mg BID PO Last administered on 02/03/18at 20:45; Start 01/26/18 at 21:00 Miscellaneous (Pill Splitter) 1 ea UNSCH PRN OTHER SEE LABEL COMMENTS; Start at 19:15 Heparin Sodium (Porcine) (Heparin Inj) 5,000 units Q8H SQ Last administered on 02/01/18at 00:21; Start 01/27/18 at 00:00; Stop 02/02/18 at 08:25; Status DC Insulin Human Regular (NovoLIN R SUPPLEMENTAL SCALE) 1 ACHS SLIDING SCALE SQ Last administered on 01/31/18at 21:00; Start 01/27/18 at 12:00; Stop 02/01/18 at 13:29; Status DC Fluoxetine HCl (PROzac) 20 mg DAILY PO Last administered on 02/03/18at 10:17; Start 01/27/18 at 10:00 Insulin Human Regular (NovoLIN R INJ) 2 units NOW ONCE SQ Last administered on 01/27/18at 10:02; Start 01/27/18 at 09:45; Stop 01/27/18 at 09:46; Status DC Amlodipine Besylate (Norvasc) 10 mg DAILY PO Last administered on 01/31/18at 08: 11; Start 01/28/18 at 09:00; Status Future Hold Sodium Chloride (NS Flush) 2 ml BID IV FLUSH Last administered on 01/31/18at 21: 17; Start 01/27/18 at 21:00; Stop 02/01/18 at 13:29; Status DC Sodium Chloride (NS Flush) 2 ml UNSCH PRN IV FLUSH FLUSH AFTER USING IV ACCESS ; Start 01/27/18 at 10:15; Stop 02/01/18 at 13:29; Status DC Papaverine HCl 60 mg/Nitroglycerin 100 mcg/Verapamil HCl 100 mg/Sodium Chloride 100 ml @ 0 mls/hr RAIL FILLER IRRIGATION Last administered on 02/01/18at 10:28; Start 01/27/18 at 10:15; Stop 02/02/18 at 08:25; Status DC Vancomycin HCl 1000 mg/Sodium Chloride 1,000 ml @ 0 mls/hr RAIL FILLER IRRIGATION Last administered on 02/01/18at 10:31; Start 01/27/18 at 10:15; Stop 02/02/18 at 08:25; Status DC Vancomycin HCl 1750 mg/Sodium Chloride 517.5 ml @ 258.75 mls/ hr RAIL FILLER IV Last administered on 02/01/18at 08:40; Start 01/27/18 at 10:15; Stop 02/01/18 at 13:29; Status DC Metoprolol Tartrate (Lopressor) 12.5 mg RAIL FILLER PO ; Start 01/27/18 at 10:15; Stop 02/01/18 at 13:29; Status DC Chlorhexidine Gluconate (Hibiclens 4% Top Soln) 1 applic RAIL FILLER TOPICAL Last administered on 02/01/18at 01:10; Start 01/27/18 at 10:15; Stop 02/02/18 at 08:25 ; Status DC Insulin Human Regular 100 units/ Sodium Chloride 100 ml @ 3 mls/hr TITRATE PRN IV for blood glucose control; Start 01/27/18 at 10:15; Stop 02/01/18 at 13:29; Status DC Dextrose (D50w (Vial) Inj) 50 ml UNSCH PRN IV PUSH HYPOGLYCEMIA-SEE COMMENTS; Start 01/27/18 at 10:15; Stop 02/01/18 at 13:29; Status DC Losartan Potassium (Cozaar) 50 mg DAILY PO Last administered on 01/30/18at 07:48 ; Start 01/28/18 at 09:00; Status Future hold Potassium Chloride (KCl) 30 meq ONCE ONCE PO Last administered on 01/31/18at 10 :35; Start 01/31/18 at 10:15; Stop 01/31/18 at 10:16; Status DC Lactated Ringer's 1,000 ml @ 30 mls/hr Q24H PRN IV SEE LABEL COMMENTS; Start at 05:30; Stop 02/01/18 at 13:08; Status DC Sodium Chloride 500 ml @ 30 mls/hr [id number] PRN IV SEE LABEL COMMENTS; Start at 05:30; Stop 02/01/18 at 13:08; Status DC Povidone Iodine (Betadine 5% Antisepsis Kit) 1 applic RAIL FILLER PRN EACH NARE SEE LABEL COMMENTS; Start 02/01/18 at 05:30; Stop 02/02/18 at 08:25; Status DC Chlorhexidine Gluconate (Chlorhexidine 2% Cloth) 3 pack RAIL FILLER PRN TOPICAL SEE LABEL COMMENTS; Start 02/01/18 at 05:30; Stop 02/02/18 at 08:25; Status DC Heparin Sodium (Porcine) (Heparin Inj) 40,000 units STK-MED ONCE .ROUTE Last administered on 02/01/18at 09:07; Start 02/01/18 at 06:35; Stop 02/01/18 at 06:36 ; Status DC Vancomycin HCl (Vancomycin Inj) 4,000 mg STK-MED ONCE .ROUTE Last administered on 02/01/18at 09:07; Start 02/01/18 at 06:35; Stop 02/01/18 at 06:36; Status DC Vecuronium [place] (Norcuron 20 Mg Inj) 20 mg STK-MED ONCE .ROUTE ; Start at 09:03; Stop 02/02/18 at 08:25; Status DC Vancomycin HCl (Vancomycin Inj) 1,000 mg STK-MED ONCE .ROUTE ; Start 02/01/18 at 09:14; Stop 02/02/18 at 08:25; Status DC Ephedrine Sulfate (ePHEDrine INJ) 200 mg STK-MED ONCE .ROUTE ; Start 02/01/18 at 09:52; Stop 02/02/18 at 08:25; Status DC Glycopyrrolate (Robinul Inj) 1.6 mg STK-MED ONCE .ROUTE ; Start 02/01/18 at 09: 52; Stop 02/02/18 at 08:25; Status DC Potassium Chloride 100 ml @ As Directed STK-MED ONCE .ROUTE ; Start 02/01/18 at 10:18; Stop 02/02/18 at 08:25; Status DC Sodium Chloride (NS Flush) 2 ml BID IV FLUSH Last administered on 02/03/18at 20: 51; Start 02/01/18 at 21:00 Sodium Chloride (NS Flush) 2 ml UNSCH PRN IV FLUSH FLUSH AFTER USING IV ACCESS ; Start 02/01/18 at 12:45 Dexmedetomidine HCl 200 mcg/ Sodium Chloride 52 ml @ 9.43 mls/hr TITRATE PRN IV SEDATION Last administered on 02/02/18at 02:18; Start 02/01/18 at 12:45; Stop 02/02/18 at 08:25; Status DC Nitroglycerin/ Dextrose 250 ml @ 1.5 mls/hr TITRATE PRN IV Maintain BP < 140/ 90 mmHg; Start 02/01/18 at 12:45; Stop 02/02/18 at 08:25; Status DC Dobutamine HCl/ Dextrose 250 ml @ 0 mls/hr Q0M PRN IV Rate change per MD; Start 02/01/18 at 12:43; Stop 02/02/18 at 08:25; Status DC Dopamine HCl/ Dextrose 500 ml @ 20.419 mls/ hr TITRATE PRN IV Maintain MAP > 65 mmHg; Start 02/01/18 at 12:45; Stop 02/02/18 at 08:25; Status DC Phenylephrine HCl 40 mg/Dextrose 500 ml @ 30 mls/hr TITRATE PRN IV Maintain MAP > 65 mmHg; Start 02/01/18 at 12:45; Stop 02/02/18 at 08:25; Status DC Clevidipine 50 ml @ 2 mls/hr TITRATE PRN IV Maintain BP < 140/90 mmHg; Start at 12:45; Stop 02/02/18 at 08:25; Status DC Albumin Human 250 ml @ 250 mls/hr UNSCH PRN IV SEE LABEL COMMENTS Last administered on 02/01/18at 21:00; Start 02/01/18 at 12:45; Stop 02/02/18 at 08:25 ; Status DC Lactated Ringer's 500 ml @ 500 mls/hr Q1H PRN IV SEE LABEL COMMENTS Last administered on 02/02/18at 03:45; Start 02/01/18 at 12:43; Stop 02/02/18 at 08:25 ; Status DC Miscellaneous Information (Misc Post-op Orders (for Pharmacy)) STAT ONCE OTHER ; Start 02/01/18 at 12:45; Stop 02/01/18 at 13:25; Status DC Vancomycin HCl 1750 mg/Sodium Chloride 250 ml @ 250 mls/hr Q12H IV Last administered on 02/01/18at 21:57; Start 02/01/18 at 22:00; Stop 02/02/18 at 10:32 ; Status DC Aspirin (Aspirin Chew) 81 mg DAILY PO Last administered on 02/03/18at 10:17; Start 02/02/18 at 09:00 Clopidogrel Bisulfate (Plavix) 75 mg DAILY PO Last administered on 02/03/18at 10 :16; Start 02/02/18 at 09:00 Pantoprazole Sodium (Protonix) 40 mg DAILY@06 PO Last administered on at 06:25; Start 02/02/18 at 06:00 Amiodarone HCl (Cordarone) 200 mg Q12HR PO Last administered on 02/03/18at 20:51 ; Start 02/01/18 at 21:00 Acetaminophen (Tylenol) 650 mg Q4H PRN PO TEMPERATURE > 101 F; Start 02/01/18 at 12:45 Acetaminophen (Tylenol Supp) 650 mg Q4H PRN RECTAL TEMPERATURE > 101 F; Start 02/01/18 at 12:45; Stop 02/02/18 at 08:25; Status DC Acetaminophen 100 ml @ 400 mls/hr Q6H IV Last administered on 02/02/18at 07:55 ; Start 02/01/18 at 14:00; Stop 02/02/18 at 08:14; Status DC Morphine Sulfate (Morphine Inj) 1 mg Q10M PRN IV PUSH PAIN SCALE 1 TO 5; Start 02/01/18 at 12:45; Stop 02/02/18 at 08:25; Status DC Meperidine HCl (Demerol Inj) 12.5 mg Q4H PRN IV PUSH SEE LABEL COMMENTS; Start 02/01/18 at 12:45 Acetaminophen/ Hydrocodone Bitart ([place] 5-325 Mg) 1 tab Q3H PRN PO PAIN SCALE 1 TO 5; Start 02/01/18 at 12:45 Acetaminophen/ Hydrocodone Bitart ([place] 5-325 Mg) 2 tab Q3H PRN PO PAIN SCALE 6 TO 10 Last administered on 02/04/18at 06:26; Start 02/01/18 at 12:45 Ketorolac Tromethamine (Toradol Inj) 15 mg Q6H PRN IV PUSH SEE LABEL COMMENTS Last administered on 02/01/18at 15:20; Start 02/01/18 at 12:45; Stop 02/03/18 at 12:44; Status DC Fentanyl Citrate (fentaNYL INJ) 25 mcg Q1H PRN IV PUSH BREAKTHROUGH PAIN Last administered on 02/02/18at 07:56; Start 02/01/18 at 12:45; Stop 02/02/18 at 08:25 ; Status DC Ondansetron HCl (Zofran Odt) 4 mg Q6H PRN PO NAUSEA OR VOMITING; Start at 12:45 Hydralazine HCl (Apresoline Inj) 10 mg Q4H PRN IV PUSH SEE LABEL COMMENTS; Start 02/01/18 at 12:45; Stop 02/01/18 at 13:30; Status DC Metoprolol Tartrate (Lopressor Inj) 2.5 mg Q1H PRN IV PUSH SEE LABEL COMMENTS; Start 02/01/18 at 12:45; Stop 02/02/18 at 08:25; Status DC Potassium Chloride 100 ml @ 50 mls/hr UNSCH PRN IV SEE LABEL COMMENTS Last administered on 02/01/18at 13:48; Start 02/01/18 at 12:45; Stop 02/01/18 at 13:48 ; Status DC Potassium Chloride 100 ml @ 50 mls/hr UNSCH PRN IV SEE LABEL COMMENTS Last administered on 02/02/18at 04:35; Start 02/01/18 at 12:45; Stop 02/02/18 at 08:25 ; Status DC Potassium Chloride 100 ml @ 50 mls/hr UNSCH PRN IV SEE LABEL COMMENTS; Start 02/01/18 at 12:45; Stop 02/02/18 at 08:25; Status DC Potassium Chloride (KCl) 20 meq UNSCH PRN PO SEE LABEL COMMENTS; Start at 12:45; Stop 02/02/18 at 08:25; Status DC Potassium Chloride (KCl) 40 meq UNSCH PRN PO SEE LABEL COMMENTS; Start at 12:45; Stop 02/02/18 at 08:25; Status DC Magnesium Sulfate 2 gm/Sodium Chloride 104 ml @ 100 mls/hr UNSCH PRN IV SEE LABEL COMMENTS; Start 02/01/18 at 12:45; Stop 02/02/18 at 08:25; Status DC Magnesium Sulfate 2 gm/Sodium Chloride 104 ml @ 50 mls/hr UNSCH PRN IV SEE LABEL COMMENTS Last administered on 02/02/18at 05:11; Start 02/01/18 at 12:45; Stop 02/02/18 at 05:12; Status DC Calcium Chloride 1 gm/Sodium Chloride 110 ml @ 100 mls/hr UNSCH PRN IV SEE LABEL COMMENTS Last administered on 02/01/18at 14:05; Start 02/01/18 at 12:45; Stop 02/02/18 at 08:25; Status DC Calcium Chloride (Calcium Chloride Inj) 0.5 gm UNSCH PRN IV PUSH SEE LABEL COMMENTS; Start 02/01/18 at 12:45; Stop 02/02/18 at 08:25; Status DC Insulin Human Regular 100 units/ Sodium Chloride 100 ml @ 3 mls/hr TITRATE PRN IV for blood glucose control Last administered on 02/01/18at 13:30; Start at 12:45; Stop 02/02/18 at 08:25; Status DC Dextrose (D50w (Vial) Inj) 50 ml UNSCH PRN IV PUSH HYPOGLYCEMIA-SEE COMMENTS; Start 02/01/18 at 12:45; Stop 02/02/18 at 08:39; Status DC Sodium Bicarbonate (Sodium Bicarbonate 8.4% Inj) 50 meq UNSCH PRN IV PUSH SEE LABEL COMMENTS; Start 02/01/18 at 12:45; Stop 02/02/18 at 08:25; Status DC Sodium Bicarbonate (Sodium Bicarbonate 8.4% Inj) 100 meq UNSCH PRN IV PUSH SEE LABEL COMMENTS; Start 02/01/18 at 12:45; Stop 02/02/18 at 08:25; Status DC Albuterol/ Ipratropium (Duoneb Neb) 1 ampule Q6HR NEB NEB Last administered on 02/03/18at 02:56; Start 02/01/18 at 16:00; Stop 02/03/18 at 04:44; Status DC Albuterol/ Ipratropium (Duoneb Neb) 1 ampule Q2HR NEB PRN NEB WHEEZING; Start 02/01/18 at 12:45 Racepinephrine (Racepinephrine 2.25% Neb) 0.5 ml UNSCH X1 PRN NEB STRIDOR; Start 02/01/18 at 12:45; Stop 02/02/18 at 08:25; Status DC Midazolam HCl (Versed Inj) 10 mg STK-MED ONCE .ROUTE ; Start 02/01/18 at 13:59; Stop 02/02/18 at 08:25; Status DC Midazolam HCl (Versed Inj) 2 mg STK-MED ONCE .ROUTE ; Start 02/01/18 at 13:59; Stop 02/02/18 at 08:25; Status DC Fentanyl Citrate (fentaNYL INJ) 1,000 mcg STK-MED ONCE .ROUTE ; Start 02/01/18 at 13:59; Stop 02/02/18 at 08:25; Status DC Carvedilol (Coreg) 6.25 mg BID PO Last administered on 02/02/18at 20:23; Start 02/02/18 at 09:00; Stop 02/03/18 at 09:33; Status DC Albuterol/ Ipratropium (Duoneb Neb) 1 ampule Q6HR WHILE AWAKE NEB NEB Last administered on 02/04/18at 08:12; Start 02/02/18 at 14:00; Stop 02/04/18 at 13:59 Docusate Sodium (Colace) 100 mg BID PO Last administered on 02/03/18at 20:49; Start 02/02/18 at 08:30 Multivitamins/ Minerals Therapeutic (Theragran M Tab) 1 tab DAILY PO Last administered on 02/03/18at 10:17; Start 02/02/18 at 09:00 Magnesium Hydroxide (Milk Of Magnesia Liq) 30 ml DAILY PO Last administered on 02/03/18at 10:14; Start 02/02/18 at 09:00 Bisacodyl (Dulcolax Supp) 10 mg UNSCH PRN RECTAL SEE LABEL COMMENTS; Start at 08:30 Polyethylene Glycol (Miralax) 17 gm DAILY PO Last administered on 02/03/18at 10: 14; Start 02/03/18 at 09:00 Sennosides (Senokot) 8.6 mg HS PO Last administered on 02/03/18at 20:50; Start 02/02/18 at 21:00 Sodium Biphosphate/ Sodium Phosphate (Fleets Enema (Adult)) 118 ml UNSCH PRN RECTAL SEE LABEL COMMENTS; Start 02/02/18 at 08:30 Insulin Detemir (Levemir Inj) 10 units ONCE ONCE SQ Last administered on at 08:30; Start 02/02/18 at 08:30; Stop 02/02/18 at 08:40; Status DC Insulin Aspart (NovoLOG SUPPLEMENTAL SCALE) 1 02,06,10,14,18,22 SQ Last administered on 02/03/18at 06:29; Start 02/02/18 at 10:00; Stop 02/03/18 at 09:36 ; Status DC Dextrose (D50w (Vial) Inj) 50 ml UNSCH PRN IV PUSH HYPOGLYCEMIA-SEE COMMENTS; Start 02/02/18 at 08:30 Glucagon (Glucagon Inj) 1 mg UNSCH PRN OTHER HYPOGLYCEMIA-SEE COMMENTS; Start 02/02/18 at 08:30 Furosemide (Lasix Inj) 40 mg ONCE ONCE IV PUSH Last administered on 02/02/18at 09:10; Start 02/02/18 at 08:30; Stop 02/02/18 at 08:39; Status DC Potassium Chloride (KCl) 20 meq ONCE ONCE PO Last administered on 02/02/18at 09 :09; Start 02/02/18 at 08:30; Stop 02/02/18 at 08:39; Status DC Insulin Aspart (NovoLOG SUPPLEMENTAL SCALE) 1 ACHS SQ Last administered on 02/03at 21:02; Start 02/03/18 at 08:00 Vancomycin HCl 1750 mg/Sodium Chloride 267.5 ml @ 250 mls/hr Q12H IV Last administered on 02/02/18at 10:49; Start 02/02/18 at 10:00; Stop 02/02/18 at 14:55 ; Status DC Vancomycin HCl 1750 mg/Sodium Chloride 517.5 ml @ 250 mls/hr Q12H IV Last administered on 02/02/18at 22:01; Start 02/02/18 at 22:00; Stop 02/03/18 at 00:05 ; Status DC Melatonin (Melatonin) 5 mg HS PRN PO SLEEP Last administered on 02/03/18at 21:07 ; Start 02/03/18 at 09:30 Metoprolol Tartrate (Lopressor) 50 mg Q12HR PO Last administered on 02/03/18at 21:00; Start 02/03/18 at 10:00 Insulin Aspart (NovoLOG SUPPLEMENTAL SCALE) 1 ACHS SQ ; Start 02/03/18 at 12:00 Metformin HCl (Glucophage) 1,000 mg BIDPC PO Last administered on 02/03/18at 17: 50; Start 02/03/18 at 18:00 Furosemide (Lasix Inj) 40 mg ONCE ONCE IV PUSH Last administered on 02/03/18at 10:15; Start 02/03/18 at 09:45; Stop 02/03/18 at 09:46; Status DC Potassium Chloride (KCl) 30 meq ONCE ONCE PO Last administered on 02/03/18at 10 :15; Start 02/03/18 at 09:45; Stop 02/03/18 at 09:46; Status DC Furosemide (Lasix Inj) 40 mg BID@18 IV PUSH Last administered on 02/03/18at 17:49; Start 02/03/18 at 18:00 Potassium Chloride (KCl) 20 meq Q12H PO Last administered on 02/04/18at 06:25; Start 02/03/18 at 18:00 Lactated Ringer's 1,000 ml @ As Directed STK-MED ONCE IV ; Start 02/01/18 at 12 :00; Stop 02/03/18 at 15:59; Status DC Sodium Chloride 250 ml @ As Directed STK-MED ONCE IV ; Start 02/01/18 at 12:00 ; Stop 02/03/18 at 15:59; Status DC Sodium Chloride 1,000 ml @ As Directed STK-MED ONCE IV ; Start 02/01/18 at 12: 00; Stop 02/03/18 at 15:59; Status DC Ephedrine Sulfate (ePHEDrine INJ) 100 mg STK-MED ONCE IV ; Start 02/01/18 at 12: 00; Stop 02/03/18 at 15:59; Status DC Magnesium Sulfate (Magnesium Sulfate Inj) 2 gm STK-MED ONCE IV ; Start 02/01/18 at 12:00; Stop 02/03/18 at 15:59; Status DC Furosemide (Lasix Inj) 100 mg STK-MED ONCE IV ; Start 02/01/18 at 12:00; Stop at 15:59; Status DC Artificial Tears (Lacrilube Opht Oint) 1 applic STK-MED ONCE EACH EYE ; Start at 12:00; Stop 02/03/18 at 15:59; Status DC Vecuronium [place] (Norcuron 10 Mg Inj) 20 mg STK-MED ONCE IV ; Start 02/01/18 at 12:00; Stop 02/03/18 at 15:59; Status DC Heparin Sodium (Porcine) (Heparin Inj) 40,000 units STK-MED ONCE OTHER ; Start 02/01/18 at 12:00; Stop 02/03/18 at 15:59; Status DC Glycopyrrolate (Robinul Inj) 0.6 mg STK-MED ONCE IV ; Start 02/01/18 at 12:00; Stop 02/03/18 at 15:59; Status DC Phenylephrine HCl (Neosynephrine/ NS 1000 Mcg/10ml Syr) 2,000 mcg STK-MED ONCE IV ; Start 02/01/18 at 12:00; Stop 02/03/18 at 15:59; Status DC Ephedrine Sulfate (ePHEDrine/NS 25 MG/5 ML SYR) 25 mg STK-MED ONCE IV ; Start at 12:00; Stop 02/03/18 at 15:59; Status DC Protamine Sulfate (Protamine Sulfate Inj) 250 mg STK-MED ONCE IV ; Start at 12:00; Stop 02/03/18 at 15:59; Status DC Dexmedetomidine HCl (Precedex Inj) 200 mcg STK-MED ONCE IV ; Start 02/01/18 at 12:00; Stop 02/03/18 at 15:59; Status DC Urinary Catheter: No Vascular Central Line Catheter: Yes Assessment to: Remove A/P Assessment and Plan 57-year-old white male who was admitted with multivessel coronary artery disease -Status post unsuccessful PCI; cardiothoracic surgery consultation in progress. sx on 02-01 CABG.. Of 2 vessels -continue Telemetry, frequent vital signs -Continue aspirin, Coreg and Lipitor -CT chest, carotid ultrasound, lower extremity ultrasounds overall unremarkable , only small pericardial effusion noted on CT chest. Diabetes -on MDSS w BS monitoring. On insulin titration protocol per cardiothoracic surgery is warranted otherwise -diabetic diet in addition to heart healthy -WEAN OFF INSULIN DRIP Stable chronic diastolic CHF - ECHO shows EF of 60-65%, no mention of diastolic dysfunction - continue home Lasix 40 mg daily - continue home losartan and CHANGE TO METOPROLOL -Monitor intake/output HTN -Continue home METOPROLOL, , MEDS BEING ADJUSTED Anxiety - home buspirone and topiramate (restless leg) -home fluoxetine INCENTIVE SPIROMETRY PT AND OT INCREASE ACTIVITY DC HOME TODAY IF O2 SAT IS STABLE Discharge Planning Pending cardiovascular surgery clear Steven Costa DO February 04, 2018 09:40
[2018-02-04] MEDS ORDERED: TOPI50TA7 PO (09:51)
[2018-02-04] MEDS ORDERED: METO-309 PO (09:51)
[2018-02-04] MEDS ORDERED: BUSP15TA PO (09:51)
[2018-02-04] MEDS ORDERED: HYDR-3516 PO (09:51)
[2018-02-04] MEDS ORDERED: Albuterol-Ipratropium Neb NEB (09:51)
[2018-02-04] MEDS ORDERED: FISHCAP4 PO (09:51)
[2018-02-04] MEDS ORDERED: NEBULIZER1 MI1 (09:51)
[2018-02-04] MEDS ORDERED: COZA50TA PO (09:51)
[2018-02-04] MEDS ORDERED: ATOR40TA16 PO (09:51)
[2018-02-04] MEDS ORDERED: BUSP1TAB PO (09:51)
[2018-02-04] MEDS ORDERED: SENN187 PO (09:51)
[2018-02-04] MEDS ORDERED: OXYGENDME NAS.CANULA (09:51)
[2018-02-04] MEDS ORDERED: PANT40TA3 PO (09:51)
[2018-02-04] MEDS ORDERED: THERM PO (09:51)
[2018-02-04] MEDS ORDERED: CLOP75TA PO (09:51)
[2018-02-04] MEDS ORDERED: FLUO20CA12 PO (09:51)
[2018-02-04] MEDS ORDERED: ALBUAER3 INH (09:51)
[2018-02-04] MEDS ORDERED: AMIO200T PO (09:51)
[2018-02-04] MEDS ORDERED: POTA20TA5 PO (09:51)
[2018-02-04] MEDS ORDERED: METF1000 PO (09:51)
[2018-02-04] MEDS ORDERED: FURO40TA PO (09:51)
[2018-02-04] MEDS ORDERED: MELA5 PO (09:51)
--- NOTE | 2018-02-04 09:56 | HHI.DS ---
Discharge Summary Admission Date January 26, 2018 at 15:30 Discharge Date: February 04, 2018 Admitting Diagnosis CORONARY ARTERY DISEASE MORBID OBESITY DIABETES MELLITUS (1) S/P CABG x 2 ICD Code: Z95.1 - Presence of aortocoronary bypass graft Diagnosis: Principal (2) Obstructive sleep apnea ICD Code: G47.33 - Obstructive sleep apnea (adult) (pediatric) Diagnosis: Secondary (3) Morbid obesity with BMI of 50.0-59.9, adult ICD Code: E66.01 - Morbid (severe) obesity due to excess calories; Z68.43 - Body mass index (BMI) 50-59.9 , adult Diagnosis: Secondary (4) Hypertension ICD Code: I10 - Essential (primary) hypertension Diagnosis: Secondary (5) Hyperlipemia ICD Code: E78.5 - Hyperlipidemia, unspecified Diagnosis: Secondary (6) Diabetes mellitus ICD Code: E11.9 - Type 2 diabetes mellitus without complications Diagnosis: Secondary (7) Coronary artery disease ICD Code: I25.10 - Atherosclerotic heart disease of [place] coronary artery without angina pectoris Diagnosis: Principal Procedures Date of Surgery: February 01, 2018 Preoperative Diagnosis: Postoperative Diagnosis: Procedure: 1. Urgent Off-pump Coronary Artery Bypass Grafting x 2 with Left Internal Mammary Artery (SAMUEL) to Left Anterior Descending (LAD), reverse saphenous vein graft to the distal Right Coronary Artery (RCA) 2. Left Leg Endoscopic Vein [place] 3. Biomet Sternal Plating 4. Intraoperative Vein Mapping. Surgeon: Gay Rico Managed Services Consultant(s): Caterina Key Operation and Findings: PREPROCEDURE DIAGNOSES 1. Severe Two Vessel Coronary Artery Disease. 2. Morbid Obesity 3. Diabetes mellitus POSTPROCEDURE DIAGNOSES Same SURGICAL PROCEDURE 1. Urgent Off-pump Coronary Artery Bypass Grafting x 2 with Left Internal Mammary Artery (SAMUEL) to Left Anterior Descending (LAD), reverse saphenous vein graft to the distal Right Coronary Artery (RCA) 2. Left Leg Endoscopic Vein [place] 3. Biomet Sternal Plating 4. Intraoperative Vein Mapping. SURGEON Gay Rico MD PRETZEL TWISTING MACHINE OPERATOR KAYLIN Loja ANESTHESIA General endotracheal ART CLASS MODEL ZAHEER Oneill MD PREPARATION ChloraPrep. COUNTS Needle, sponge, and instrument counts were correct. DRAINS Two 32-Maltese mediastinal tubes. COMPLICATIONS None. INDICATIONS FOR PROCEDURE The patient is a 57-year-old presenting with chest pain and two-vessel CAD. The patient is being brought to the operating room for surgical revascularization therapy. PROCEDURE Patient was brought to the operating room and placed supine on the OR table. Following the induction of adequate general endotracheal anesthesia and placement of appropriate monitoring devices, intraoperative vein mapping was performed which revealed suitable-caliber conduit in bilateral lower extremities. The patient was then prepped and draped in standard sterile fashion. Next, 2500 units of intravenous heparin was given. The left greater saphenous vein was harvested endoscopically. This appeared to be a useable- caliber conduit. Simultaneously, a median sternotomy was performed and the left internal mammary artery dissected free off the posterior sternal table. The patient was systemically heparinized and anticoagulation monitored by serial ACT measurements. The internal mammary artery had good pulsatile flow in it and was a good-caliber conduit. The pericardium was then divided in the midline , the cradle created and targets analyzed. At this point, all anastomoses were performed in a beating-heart fashion using the Maquet stabilizing system. The left internal mammary artery was anastomosed to the distal LAD (2mm) in an end- to-side fashion using 7-0 Prolene. The LAD upto that point was severely and heavily calcified proximally. Segment of saphenous vein graft was then anastomosed to RCA (2.5 mm) in an end-to-side fashion using 7-0 Prolene. The RCA was also very heavily and diffusely diseased vessel and the anastomosis was performed in an area of soft plaque. The proximal anastomosis was then constructed to the ascending aorta in a running manner using 6-0 Prolene. All anastomotic sites were inspected and appeared to be hemostatic and patent. Protamine solution was given. Strict hemostasis was assured. The closure was undertaken. 2 chest tubes were placed. The pericardium was reapproximated in the midline. The sternum was approximated using 3 sternal wires and 3 Biomet sternal plates. The muscular and fascial layer were then closed in 3 layers. The endoscopic vein harvest site was closed in 2 layers. The patient tolerated the procedure well and was transferred to CVICU in stable condition. Gay Rico MD Brief History - From Admission 57-year-old white male being admitted to [facility] as a transfer from [facility] for further evaluation of coronary artery bypass graft. History is obtained from patient, outside medical records, and nursing handoff. Patient was in his usual state of health up until recently. Yesterday he went to [facility] for an outpatient catheterization but they were not able to successfully stent his LAD due to (tortuous anatomy and possible dissection per RN handoff) and was thus admitted to the intensive care unit. Cardiology deemed surgical input was necessary. Cardiothoracic surgery here accepted the patient for further evaluation, thus the patient was transferred to [facility]. Patient reports in the days leading up to his outpatient catheterization, he denies having any active chest pain, nausea, vomiting. He reports having intermittent dyspnea that would happen either at rest or upon exertion says that his leg edema has been. Worse than baseline since he says he has been off of his water pills for the past few days due to his admission. Prior to this the patient had a successful angioplasty on 01/09 to his RCA but no stents were placed on either. Patient says he was evaluated by cardiothoracic surgery team in [place] around this timeframe was was told that CABG would be too risky. Patient reports otherwise he is very compliant with his Lipitor, aspirin, Brilinta, and Lasix. Says that his A1c has been in the low 6 range. I discussed case with Dr. Hensley cardiology at [facility], he confirms that the patient has no stent in his heart at this time, only unsuccessful attempts were made due to tortuous anatomy. Last dose of Brilinta was about 1.5 days ago. CBC/BMP: 02/04/18 0431 02/04/18 0431 Significant Findings Laboratory Tests Test 02/02/18 03:28 02/03/18 04:00 02/04/18 04:31 White Blood Count 13.3 TH/MM3 (4.0-11.0) 13.9 TH/MM3 (4.0-11.0) Red Blood Count 3.30 MIL/MM3 (4.50-5.90) 3.50 MIL/MM3 (4.50-5.90) 3.17 MIL/MM3 (4.50-5.90) Hemoglobin 9.8 GM/DL (13.0-17.0) 10.5 GM/DL (13.0-17.0) 9.5 GM/DL (13.0-17.0) Hematocrit 29.5 % (39.0-51.0) 31.1 % (39.0-51.0) 28.1 % (39.0-51.0) Neutrophils (%) (Auto) 91.3 % (16.0-70.0) 75.2 % (16.0-70.0) Lymphocytes (%) (Auto) 1.0 % (9.0-44.0) 8.0 % (9.0-44.0) Neutrophils # (Auto) 12.1 TH/MM3 (1.8-7.7) 10.5 TH/MM3 (1.8-7.7) Lymphocytes # (Auto) 0.1 TH/MM3 (1.0-4.8) Random Glucose 129 MG/DL (74-106) 166 MG/DL (74-106) 121 MG/DL (74-106) Total Protein 5.5 GM/DL (6.4-8.2) 6.3 GM/DL (6.4-8.2) 5.7 GM/DL (6.4-8.2) Albumin 2.9 GM/DL (3.4-5.0) 3.1 GM/DL (3.4-5.0) 2.6 GM/DL (3.4-5.0) Calcium Level 7.8 MG/DL (8.5-10.1) 8.0 MG/DL (8.5-10.1) 8.0 MG/DL (8.5-10.1) Chloride Level 110 MEQ/L (98-107) Estimat Glomerular Filtration Rate 81 ML/MIN (>89) 80 ML/MIN (>89) Hemoglobin A1c 6.9 % (4.3-6.0) Monocytes (%) (Auto) 13.9 % (0.0-8.0) 13.0 % (0.0-8.0) Monocytes # (Auto) 1.9 TH/MM3 (0-0.9) 1.4 TH/MM3 (0-0.9) Blood Urea Nitrogen 19 MG/DL (7-18) Phosphorus Level 2.4 MG/DL (2.5-4.9) Aspartate Amino Transf (AST/SGOT) 61 U/L (15-37) Imaging Last Impressions Chest X-Ray 02/03/18 0000 Signed Impressions: Service Date/Time: Saturday, February 03, 2018 15:25 - CONCLUSION: Clear lungs. Kavon Murguia MD Lower Extremity Ultrasound 01/27/18 0000 Signed Impressions: Service Date/Time: Saturday, January 27, 2018 11:46 - CONCLUSION: Venous mapping as above Steven Chen MD FACR Chest CT 01/27/18 0000 Signed Impressions: Service Date/Time: Sunday, January 28, 2018 18:26 - CONCLUSION: 1. No focal or acute intrathoracic disease. 2. Small pericardial effusion. John Elliott MD Carotid Artery Ultrasound 01/27/18 0000 Signed Impressions: Service Date/Time: Saturday, January 27, 2018 10:53 - CONCLUSION: 1. Mild atherosclerotic plaquing at the right carotid bifurcation. Mild to moderate atherosclerotic plaque involving the left common carotid artery and bifurcation. 2. No focal high grade or hemodynamically significant stenosis. John Elliott MD PE at Discharge GENERAL: Awake alert and oriented 3 talkative and cooperative SKIN: Warm and dry. HEAD: Atraumatic. Normocephalic. EYES: Pupils equal and round. No scleral icterus. No injection or drainage. Extraocular muscles intact ENT: No nasal bleeding or discharge. Mucous membranes pink and moist. Tongue is midline NECK: Trachea midline. No JVD. Supple CARDIOVASCULAR: Regular rate and rhythm. S1-S2 no S3 or S4 positive rub chest dressed CHEST TUBES IN PLACE RESPIRATORY: No accessory muscle use. Clear to auscultation. Breath sounds equal bilaterally. Decreased breath sounds bilaterally GASTROINTESTINAL: Abdomen soft, non-tender, nondistended. Hepatic and splenic margins not palpable. Obese MUSCULOSKELETAL: Extremities without clubbing, cyanosis, or edema. No obvious deformities. NEUROLOGICAL: Awake and alert. No obvious cranial nerve deficits. Motor grossly within normal limits. 4 out of 5 muscle strength in the arms and legs. Normal speech. PSYCHIATRIC: Appropriate mood and affect; insight and judgment normal. Hospital Course 57-year-old white male being admitted to [facility] as a transfer from [facility] for further evaluation of coronary artery bypass graft. History is obtained from patient, outside medical records, and nursing handoff. Patient was in his usual state of health up until recently. Yesterday he went to [facility] for an outpatient catheterization but they were not able to successfully stent his LAD due to (tortuous anatomy and possible dissection per RN handoff) and was thus admitted to the intensive care unit. Cardiology deemed surgical input was necessary. Cardiothoracic surgery here accepted the patient for further evaluation, thus the patient was transferred to [facility]. Patient reports in the days leading up to his outpatient catheterization, he denies having any active chest pain, nausea, vomiting. He reports having intermittent dyspnea that would happen either at rest or upon exertion says that his leg edema has been. Worse than baseline since he says he has been off of his water pills for the past few days due to his admission. Prior to this the patient had a successful angioplasty on 01/09 to his RCA but no stents were placed on either. Patient says he was evaluated by cardiothoracic surgery team in [place] around this timeframe was was told that CABG would be too risky. Patient reports otherwise he is very compliant with his Lipitor, aspirin, Brilinta, and Lasix. Says that his A1c has been in the low 6 range. I discussed case with Dr. Hensley cardiology at [facility], he confirms that the patient has no stent in his heart at this time, only unsuccessful attempts were made due to tortuous anatomy. Last dose of Brilinta was about 1.5 days ago. Status post emergent CABG 2 Seen postoperatively Has already been extubated Denies any current complaints at this time A.m. labs Discussed with RN and patient 5-17 A-LINE BEING DISCONTINUED WEANING OFF INSULIN DRIP DW RN AND PT AND FAMILY AND [facility] AM LABS INCENTIVE SPIROMETRY PT AND OT 5-18 SEEN IN PCU STILL HAS CHEST TUBE IN PLACE DW RN AND PT AND FAMILY AND CV[facility] INCREASE ACTIVITY AM LABS 5-19 CHEST TUBES ARE OUT AMBULATING WELL WITH PT MAY NEED OXYGEN IF FAILS WALK TEST DW RN AND PT AND FAMILY BLOOD PRESSURE IS STABLE DC HOME TODAY IF PASSES WALK TEST Pt Condition on Discharge: Good Discharge Disposition: Disch w/ Home Health Serv Discharge Time: > 30 minutes Discharge Instructions DIET: Follow Instructions for: Heart Healthy Diet, Diabetic Diet Speech Therapy-Diet Recommends: Regular Activities you can perform: Regular-No Restrictions, Shower Only-No Bath Follow up Referrals: Cardiology with ESTHER MATA ADDRESS: [address] [address], [place] [address] PHONE: [phone] PCP Follow-up - 2 Weeks with DMITRY HALE Address: [address] [facility], [place] [id number] Phone: Surgical - 2 Weeks with Gay Rico MD New Medications: Commode 3-in-1 (Commode 3-in-1) 1 Mis Mis EA .XX DIRECTED, #1 0 Refills Nebulizer (Nebulizer) 1 Mis Mis EA .XX DIRECTED for Breathing Treatment, #1 0 Refills Oxygen (O2) (Oxygen (O2)) Device LITER CHRISTA.CANULA CONTINUOUS for Prevent Hypoxemia, #2 99 Refills Oxygen Concentrator Portable Gaseous 2 L/min via Nasal Canula Continuous For 99 months Walker with Front Wheels (Walker with Front Wheels) 1 Mis Mis EA .XX DIRECTED, #1 0 Refills bariatric size Amiodarone (Amiodarone) 200 Mg Tab 200 MG PO Q12HR for Regulate Heart Beat, #60 TAB Hydrocodone/Acetaminophen (Hydrocodone-Acetamin 5-325 mg) 5 Mg-325 Mg Tablet 2 TAB PO Q3H PRN for PAIN SCALE 6 TO 10, #30 TAB Losartan (Cozaar) 50 Mg Tab 50 MG PO DAILY for Blood Pressure Management, #30 TAB Melatonin (Melatonin) 5 Mg Tab 5 MG PO HS PRN for SLEEP, #30 TAB Metoprolol Tartrate (Lopressor) 50 Mg Tab 50 MG PO Q12HR for Regulate Heart Beat, #60 TAB Multiple Vitamins W/ Minerals (Thera M Plus) 1 Tab 1 TAB PO DAILY for Nutritional Supplement, #30 TAB Pantoprazole (Pantoprazole) 40 Mg Tab 40 MG PO DAILY@06 for Manage Heartburn, #30 TAB Potassium Chloride Microencaps (Potassium Chloride Microencaps) 20 Meq Tab 20 MEQ PO Q12H for Nutritional Supplement, #30 TAB Sennosides (Senna-Lax) 8.6 Mg Tab 17.2 MG PO BID for Bowel Management, #120 TAB [Albuterol-Ipratropium Neb] () 1 AMPULE NEBU 1 AMPULE NEB Q6HR WHILE AWAKE NEB for Shortness of Breath, #180 NEBULE Continued Medications: Albuterol Sulfate (Proair Hfa) 90 Mcg Hfa.aer.ad 2 PUFF INH DIRECTED for Shortness of Breath, #1 INH (This prescription has been renewed) Aspirin DR (Aspirin EC) 81 Mg Tabdr 81 MG PO DAILY, TAB 0 Refills Atorvastatin (Atorvastatin) 40 Mg Tab 40 MG PO HS for Cholesterol Management, #30 TAB 0 Refills (This prescription has been renewed) Buspirone (Buspirone) 7.5 Mg Tab 7.5 MG PO DAILY for Anxiety, #30 TAB 0 Refills (This prescription has been renewed) Buspirone (Buspirone) 15 Mg Tab 15 MG PO HS for Anxiety, #30 TAB 0 Refills (This prescription has been renewed) Clopidogrel (Clopidogrel) 75 Mg Tab 75 MG PO DAILY for Blood Clot Prevention, #30 TAB 0 Refills (This prescription has been renewed) Dulaglutide Inj (Trulicity Inj) 1.5 Mg/0.5 Ml Pen 1.5 MG SQ Q7D for Blood Sugar Management, #4 PEN 0 Refills Fish Oil-Cholecalciferol (Fish Oil + D3) 1,200-1,000 Mg-Unit Cap 1 CAP PO HS for Nutritional Supplement, #30 CAP 0 Refills (This prescription has been renewed) Fluoxetine (Fluoxetine) 20 Mg Capsule 20 MG PO DAILY for Depression Control, #30 CAP 0 Refills (This prescription has been renewed) Furosemide (Furosemide) 40 Mg Tab 40 MG PO DAILY for Blood Pressure Management, #30 TAB 0 Refills (This prescription has been renewed) Insulin Regular (Human) Concentrate Inj (Humulin R U-500 (Concentrate) Kwikpen Inj) 1,500 Units/3 Ml Pen 15 UNITS SQ TID for Blood Sugar Management, PEN 0 Refills Metformin (Metformin) 1,000 Mg Tab 1000 MG PO BIDPC for Blood Sugar Management, #60 TAB 0 Refills (This prescription has been renewed) Testosterone Cypionate Inj (Testosterone Cypionate Inj) 100 Mg/Ml Inj 200 MG IM MONTHLY for Hormone Replacement, #1 INJECTION 0 Refills Topiramate (Topiramate) 50 Mg Tab 50 MG PO BID for Control Seizures, #60 TAB 0 Refills (This prescription has been renewed) Discontinued Medications: Amlodipine (Amlodipine) 5 Mg Tab 5 MG PO DAILY for Blood Pressure Management, #30 TAB 0 Refills Carvedilol (Carvedilol) 25 Mg Tab 25 MG PO BID, #60 TAB 0 Refills Hydralazine HCl (Hydralazine HCl) 25 Mg Tablet 50 MG PO BID for Blood Pressure Management, #60 TAB 0 Refills Losartan (Losartan) 100 Mg Tab 100 MG PO DAILY for Blood Pressure Management, #30 TAB 0 Refills Naproxen (Naproxen) 500 Mg Tab 500 MG PO DAILY, #60 TAB 0 Refills Ticagrelor (Brilinta) 90 Mg Tab 90 MG PO BID for Blood Clot Prevention, #60 TAB 0 Refills Steven Costa DO February 04, 2018 09:56
== END 2018-02-04 18:30 | disposition home health service (06) | DRG 235 ==
LOC: UNDOADMIN 15:30 → HCPC 15:30 → HCVI 02-01 13:19 → HCPC 02-02 13:40
PROVIDERS: ADMIT Hospitalist; ATTEND Hospitalist
PROC: 06BQ4ZZ Excision of Left Saphenous Vein, Percutaneous Endoscopic Approach (ICD-10-PCS; 2018-02-01)
PROC: 02100Z9 Bypass Coronary Artery, One Artery from Left Internal Mammary, Open Approach (ICD-10-PCS; principal; 2018-02-01 07:38)
PROC: 021009W Bypass Coronary Artery, One Artery from Aorta with Autologous Venous Tissue, Open Approach (ICD-10-PCS; 2018-02-01 07:38)
DX: I25.10 Atherosclerotic heart disease of native coronary artery without angina pectoris (principal); I50.33 Acute on chronic diastolic (congestive) heart failure; Z68.43 Body mass index [BMI] 50.0-59.9, adult; I31.3 Pericardial effusion (noninflammatory); E66.01 Morbid (severe) obesity due to excess calories; I11.0 Hypertensive heart disease with heart failure; Z96.653 Presence of artificial knee joint, bilateral; E11.9 Type 2 diabetes mellitus without complications; G47.33 Obstructive sleep apnea (adult) (pediatric); E78.5 Hyperlipidemia, unspecified; F41.9 Anxiety disorder, unspecified; G25.81 Restless legs syndrome; Z82.49 Family history of ischemic heart disease and other diseases of the circulatory system; Z87.891 Personal history of nicotine dependence; Z91.19 Patient's noncompliance with other medical treatment and regimen
CPT/HCPCS: 71045; 71250; 76937; 80048; 80053; 81001; 82948; 83036; 83735; 84100; 84439; 84443; 85025; 85027; 85610; 86850; 86900; 86901; 86920; 87641; 93005; 93306; 93880; 93970; 93998; 94002; 94010; 94150; 94618; 94640; 94664; 94667; 94668; C1713; C1768; J0131; J1644; J1815; J1817; J1885; J1940; J2250; J2370; J2440; J2720; J3010; J3370; J3475; J3480; J7030; J7040; J7050; J7120; P9045